=== PATIENT | male | born 1955 | race Caucasian/White ===

== ENCOUNTER 2023-02-06 11:56 | Outpatient (OUT) | payer OTHER, SELFPAY ==
[2023-02-07 04:07] LABS: PSA, Free 0.37 ng/mL
== END 2023-02-06 11:57 | disposition home or self-care (01) ==
PROVIDERS: PCP Family Medicine; Visit Provider Urology
DX: R97.20 Elevated prostate specific antigen [PSA] (principal)
CPT/HCPCS: 36415; 84153; 84154

== ENCOUNTER 2024-03-07 10:44 | Outpatient (OUT) | payer OTHER, SELFPAY ==
--- NOTE | 2024-03-07 | XR_ITS ---
The [address] [address] Patient Name: KIMBERLYN WYNN MRN: [id number] date: 1955 Sex: M Assigned Patient Location: [facility] Current Patient Location: Accession/Order Number: [id number] Exam Date: 03/07/2024 11:08 Report Date: 03/08/2024 06:42 At the request of: JOAQUÍN REILLY Procedure: XR knee RT 2V PROCEDURE: XR knee RT 2V HISTORY: CHRONIC PAIN OF RIGHT KNEE COMPARISON: None. FINDINGS: BONES:Tiny degenerative ossified along the articular margins of the patella. No fracture, dislocation, articular surface irregularity. No significant joint space narrowing. SOFT TISSUES:No visible soft tissue swelling. EFFUSION:Suspect small joint effusion. OTHER: Negative. XR/XR knee RT 2V IMPRESSION: 1. Small joint effusion is suspected. 2. Minimal degenerative changes. Electronically authenticated by: RYAN PETERSEN Date: 03/08/2024 06:42
--- OUTSIDE RECORDS SUMMARY | 2024-03-07 11:09 | XMS_ITS | CCD ---
Author Organization [facility] Care Team Providers Care Onion Topper Name Role Phone ASIM REILLY Primary Care Physician REQUEST, DR OTTO LISTED Admitting Unavaila ble REQUEST, DR OTTO LISTED Attending Unavaila ble NADERER, DR ASIM Chapman Primary Care Unavailable REQUEST, DR OTTO LISTED Consulting Unavaila ble REQUEST, DR OTTO LISTED Admitting Unavaila ble REQUEST, DR OTTO LISTED Attending Unavaila ble NADERER, DR ASIM Chapman Primary Care Unavailable REQUEST, DR OTTO LISTED Consulting Unavaila ble NADERER, DR ASIM Chapman Admitting Unavailable NADERER, DR ASIM Chapman Attending Unavailable NADERER, DR ASIM Chapman Primary Care Unavailable NADERER, DR ASIM Chapman Consulting Unavailable NADERER, DR ASIM Chapman Admitting Unavailable NADERER, DR AISM Chapman Attending Unavailable NADERER, DR ASIM Chapman Primary Care Unavailable NADERER, DR ASIM Champan Consulting Unavailable NADERER, DR ASIM Chapman Admitting Unavailable NADERER, DR ASIM Chapman Attending Unavailable NADERER, DR ASIM Chapman Primary Care Unavailable ZIEBER, DR RYAN Rodriguez Consulting Unavailable NADERER, DR ASIM Chapman Consulting Unavailable BOOKER ., DR FLORES Admitting Unavailable BOOKER ., DR FLORES Attending Unavailable NADERER, DR ASIM Chapman Primary Care Unavailable BOOKER ., DR FLORES Consulting Unavailable NADERER, DR ASIM Chapman Admitting Unavailable NADERER, DR ASIM Chapman Attending Unavailable NADERER, DR ASIM Chapman Primary Care Unavailable NADERER, DR ASIM Chapman Consulting Unavailable LEO James Primary Care Provider [phone] DO Teo Francis Attending Provider ASIM REILLY Attending Unavailable TOE FRANCIS Attending Unavailable TOMMIE, ASIM Referring Unavailable TEO FRANCIS Attending Unavailable Teo Francis Attending Unavailable Teo Francis Admitting Unavailable Alexander James Primary Care Unavailable LEO James Primary Care Provider DO Teo Francis Attending Provider Silviano BOOKER Attending Unavailable Silviano BOOKER Attending Unavailable Asim Reilly MD Primary Care Provider Asim Reilly MD Unavailable Medications Current Medications Medication Drug Class(es) Dates Sig (Normalized) Sig (Original) 24 hr alfuzosin hydrochloride 10 mg extended release oral tablet (8 sources) alpha-Adrenergic Isadora Start: 07-14-2023 Alfuzosin Active MG PO July 14, 2023 12:00am Start: 11-18-2022 take 1 tablet by devora th once daily alfuzosin ER (Uroxatral) 10 MG 24 hr tablet Indications: BPH without obstruction/lower urinary tract symptoms TAKE 1 TABLET BY MOUTH EVERY DAY 90 tablet 3 01/13/2024 Active Start: 09-25-2021 take 1 tablet by devora th once daily alfuzosin 10 mg ER Tab 10 mg = 1 tab(s), Oral, Daily, # 30 tab(s), Refills(s) 11, Pharmacy: [facility]/pharmacy #[id number], 178, cm, 09/25/21 11:42:00 EDT, Height/Length Dosing, 97.7, kg, 09/25/21 11:42:00 EDT, Weight Dosing Start Date: 09/25/21 Status: Ordered cetirizine hydrochloride 10 mg oral tablet (4 sources) Histamine-1 Receptor Antagonist Start: 03-12-2011 take 1 tablet by mouth once daily ZyrTEC 10 mg Tab 10 mg = 1 tab(s), Oral, Daily, tab(s), Refills(s) 0 Start Date: 03/12/11 Status: Ordered cholecalciferol 0.05 mg oral tablet (3 sources) Vitamin D take 1 tablet by mouth in the morning cholecalciferol (Vitamin D-3) 50 MCG (1999) tablet Take 1 tablet by mouth in the morning. Active loratadine 10 mg oral tablet (3 sources) take 1 tablet by mouth in the morning loratadine (Claritin) 10 MG tablet Take 1 tablet by mouth in the morning. Active nabumetone 500 mg oral tablet (2 sources) Nonsteroidal Anti-inflammatory Drug Start: 03-07-2024 take 1 tablet by mouth twice daily as needed for pain nabumetone (Relafen) 500 MG tablet Indications: Chronic pain of right knee Take 1 tablet (500 mg) by mouth 2 (two) times a day as needed for moderate pain or mild pain 60 tablet 3 03/07/2024 Active Start: 03-07-2024 take 1 tablet by devora th twice daily as needed for pain nabumetone (Relafen) 500 MG tablet Indications: Chronic pain of right knee Take 1 tablet (500 mg) by mouth 2 (two) times a day as needed for moderate pain or mild pain 60 tablet 3 03/07/2024 Active omeprazole 40 mg delayed release oral capsule (8 sources) Proton Pump Inhibitor Start: 09-25-2021 take 1 capsule by mouth once daily omeprazole (PriLOSEC) [address] capsule Indications: Gastroesophageal reflux disease without esophagitis TAKE 1 CAPSULE BY MOUTH EVERY DAY 90 capsule 3 04/23/2023 Active predniSONE 50 mg oral tablet (3 sources) Start: 03-07-2024 End: 03-13-2024 take 1 tablet by mouth once daily predniSONE (Deltasone) 50 MG tablet Indications: Chronic pain of right knee Take 1 tablet (50 mg) by mouth Daily for 6 days 6 tablet 03/07/2024 03/13/2024 Active Start: 07-14-2023 take 20 mg by mouth twice christophe y Prednisone Active 20 MG PO Twice daily 10 July 14, 2023 12:00am simvastatin 40 mg oral tablet (8 sources) HMG-CoA Reductase Inhibitor Start: 09-25-2021 End: 09-21-2024 take 1 tablet by mouth once daily simvastatin (Zocor) 40 MG tablet Indications: Dyslipidemia (CMS/HCC) Take 1 tablet (40 mg) by mouth 1 (one) time each day at the same time 100 tablet 3 09/22/2023 09/21/2024 Active Problems Active Problems Problem Classification Problem Date Documented Date Episodic/Chronic Disorders of lipid metabolism (11 sources) Dyslipidemia; Translations: [Hyperlipidemia] Onset: 04-14-2023 09-24-2021 Chronic Esophageal disorders (7 sources) Gastroesophageal reflux disease; Translations: [Gastroesophageal reflux disease without esophagitis] Onset: 04-14-2023 09-24-2021 Chronic Gout and other crystal arthropathies (3 sources) Gouty arthritis of multiple sites; Translations: [Idiopathic chronic gout, multiple sites, without tophus (tophi)] Onset: 04-14-2023 Resolved: 04-14-2023 04-14-2023 Chronic Hyperplasia of prostate (11 sources) Benign prostatic hypertrophy with outflow obstruction; Translations: [Benign prostatic hyperplasia with lower urinary tract symptoms] Onset: 11-06-2021 Chronic Inflammatory conditions of male genital organs (6 sources) Prostatitis; Translations: [Inflammatory disease of prostate, unspecified] Onset: 11-06-2021 Episodic Nutritional deficiencies (8 sources) Vitamin D deficiency; Translations: [Vitamin D deficiency, unspecified] Onset: 05-30-2022 09-24-2021 Chronic Osteoarthritis (4 sources) Arthritis 09-25-2021 Chronic Other non-traumatic joint disorders (4 sources) Pain in right knee; Translations: [Pain in joint, lower leg] Onset: 03-07-2024 03-07-2024 Episodic Other nutritional; endocrine; and metabolic disorders (4 sources) Body mass index 30+ - obesity 09-25-2021 Chronic Other skin disorders (1 source) Sebaceous cyst; Translations: [Sebaceous cyst] Onset: 05-21-2023 Episodic Other upper respiratory disease (3 sources) Allergic rhinitis; Translations: [Allergic rhinitis, unspecified] Onset: 04-14-2023 04-14-2023 Chronic Unclassified (3 sources) CONTACT W/AND (SUSP) EXPOS COVID-19; Translations: [CONTACT W/AND (SUSP) EXPOS COVID-19] Onset: 10-11-2021 Viral infection (4 sources) Herpes simplex 09-25-2021 Episodic Past or Other Problems Problem Classification Problem Date Documented Da te Episodic/Chronic Diabetes mellitus without complication (3 sources) Prediabetes; Translations: [Prediabetes] Onset: 04-14-2023 04-14-2023 Episodic Other bone disease and musculoskeletal deformities (4 sources) Other specified disorders of bone, shoulder; Translations: [OTHER SPEC DISORDERS BONE SHOULDER] Onset: 09-16-2021 Episodic Other bone disease and musculoskeletal deformities (3 sources) Clavicle pain; Translations: [Other specified disorders of bone, shoulder] Onset: 04-14-2023 Resolved: 04-14-2023 04-14-2023 Episodic Other screening for suspected conditions (not mental disorders or infectious disease) (13 sources) Raised prostate specific antigen; Translations: [Elevated prostate specific antigen [PSA]] Onset: 11-04-2021 Resolved: 04-14-2023 Episodic Other skin disorders (3 sources) Sebaceous cyst of skin; Translations: [Sebaceous cyst] Onset: 04-14-2023 04-14-2023 Episodic Unclassified (1 source) LEFT SHOULDER OSTEOARTHRITIS( Confirmed ) 03-12-2011 Unclassified (1 source) SASONAL ALLERGIES( Confirmed ) 03-12-2011 Unclassified (3 sources) LEFT SHOULDER OSTEOARTHRITIS 03-12-2011 Unclassified (3 sources) SASONAL ALLERGIES 03-12-2011 Unclassified (1 source) CONTACT W/AND (SUSP) EXPOS COVID-19; Translations: [CONTACT W/AND (SUSP) EXPOS COVID-19] Onset: 10-08-2021 Results Test Name Value Interpretation Reference Range Facility Ambulatory Visit Summaryon 1 04-18-2023 Ambulatory Visit Summary Ambulatory Visit Summary KIMBERLYN WYNN Mer :1955 Visit Date:02/17/2024 Ambulatory Visit Instructions Your Diagnosis BPH with urinary obstruction Your Care Team Attending Physician - Silviano BOOKER MD Primary Care Physician - ASIM REILLY MD This Is Your Medications List alfuzosin (alfuzosin 10 mg ER Tab) Contact prescribing physician if questions or concerns cetirizine (ZyrTEC 10 mg Tab) omeprazole (omeprazole 40 mg Cap-) simvastatin (simvastatin 40 mg Tab) Procedures Performed COLONOSCOPY. Discharge Vitals Temperature (Temporal Artery) 37.4 ???C Heart Rate (Peripheral) 74 Respiratory Rate 16 Blood Pressure 144/73 Height 178 cm Height 70 in Weight 99 kg Weight 218.257 lb BMI 31.25 What to do next Scheduled Follow-Up Appointments Thursday 9:15 AM EST With: Silviano BOOKER MD [facility] [place] [address]- You Need to Schedule the Following Appointments Follow Up with Silviano BOOKER MD, URL When: Where: [facility] [address], [place] [address]- Medications What How Much When Instructions Unchanged alfuzosin (alfuzosin 10 mg ER Tab) 1 Tablets By Mouth Every day Unchanged cetirizine (ZyrTEC 10 mg Tab) 1 Tablets By Mouth Every day Contact prescribing physician if questions or concerns Unchanged omeprazole (omeprazole 40 mg Cap-DR) By Mouth Every day Contact prescribing physician if questions or concerns Unchanged simvastatin (simvastatin 40 mg Tab) By Mouth Once a day (at bedtime) Contact prescribing physician if questions or concerns Allergies No Known Allergies Problems Ongoing - Any problem that you are currently receiving treatment for. Arthritis BMI 30.0-30.9,adult BPH with urinary obstruction Dyslipidemia Elevated PSA GERD (gastroesophageal reflux disease) Herpes Hyperlipidemia Prostatitis Vitamin D deficiency Historical - Any problem that you are no longer receiving treatment for. LEFT SHOULDER OSTEOARTHRITIS SASONAL ALLERGIES Patient Survey You may receive a survey via text or e-mail asking about your office visit. Please share your experience with us by completing your survey. We appreciate your feedback and thank you for choosing us for your care. Education Materials Benign Prostatic Hyperplasia Benign prostatic hyperplasia (BPH) is an enlarged prostate gland that is caused by the normal aging process. The prostate may get bigger as a man gets older. The condition is not caused by cancer. The prostate is a walnut-sized gland that is involved in the production of semen. It is located in front of the rectum and below the bladder. The bladder stores urine. The urethra carries stored urine out of the body. An enlarged prostate can press on the urethra. This can make it harder to pass urine. The buildup of urine in the bladder can cause infection. Back pressure and infection may progress to bladder damage and kidney (renal) failure. What are the causes? This condition is part of the normal aging process. However, not all men develop problems from this condition. If the prostate enlarges away from the urethra, urine flow will not be blocked. If it enlarges toward the urethra and compresses it, there will be problems passing urine. What increases the risk? This condition is more likely to develop in men older than 50 years. What are the signs or symptoms? Symptoms of this condition include: ??? Getting up often during the night to urinate. ??? Needing to urinate frequently during the day. ??? Difficulty starting urine flow. ??? Decrease in size and strength of your urine stream. ??? Leaking (dribbling) after urinating. ??? Inability to pass urine. This needs immediate treatment. ??? Inability to completely empty your bladder. ??? Pain when you pass urine. This is more common if there is also an infection. ??? Urinary tract infection (UTI). How is this diagnosed? This condition is diagnosed based on your medical history, a physical exam, and your symptoms. Tests will also be done, such as: ??? A post-void bladder scan. This measures any amount of urine that may remain in your bladder after you finish urinating. ??? A digital rectal exam. In a rectal exam, your health care provider checks your prostate by putting a lubricated, gloved finger into your rectum to feel the back of your prostate gland. This exam detects the size of your gland and any abnormal lumps or growths. ??? An exam of your urine (urinalysis). ??? A prostate specific antigen (PSA) screening. This is a blood test used to screen for prostate cancer. ??? An ultrasound. This test uses sound waves to electronically produce a picture of your prostate gland. Your health care provider may refer you to a specialist in kidney and prosta (more content not included)... Normal [facility] Office/Clinic Noteon 02-17-2024 Urology Office/Clinic Note Urology Office/Clinic Note Chief Complaint 1 year follow up with PSA HPI Staff 1 year follow up w/PSA previous DX: Elevated PSA, BPH w/ Urinary Obstruction, and Prostatitis. Previous PSA 2.0 & 18.5% 02/06/23, Current PSA 02/13/24 1.84 *Alfuzosin 10mg ER QD. Dysuria: denies Incomplete bladder emptying: denies Hematuria: denies Frequency: once every 3-4 hours, depends fluid intake Urgency: sometimes Nocturia: once a night Stream: denies hesitancy, has a steady stream, sometimes has stop and go Leaking: denies Post void dripping: denies Wearing pads/ Depends: denies Urge incontinence: denies Stress incontinence: denies Incontinence without Sensory Awareness: denies Abdominal pain: denies Flank pain: denies Sexual complaints: _ History of Present Illness Tests reviewed: UA, PSA I have reviewed the previous health record information and history for this patient from Dr. Booker. I have reviewed and verified the staff HPI to be accurate for this encounter. Review of Systems PHQ Score Initial Depression Screen Score: 0 SCORE ROS - Provider Constitutional: denies weight loss, denies hot flashes. Eyes: denies eye problems. Gastrointestinal: denies nausea, denies vomiting. Cardiovascular: denies chest pain or angina. Integumentary: no dryness Musculoskeletal: denies musculoskeletal symptoms. ENMT: denies otolaryngeal symptoms. Respiratory: no shortness of breath. Heme/Lymph: denies easy bleeding tendency, denies easy bruising tendency. Psychiatric: no confusion, no anxiety. Genitourinary: See HPI. Physical Exam Vitals & Measurements T: 37.4 ???C(Temporal Artery) HR: 74(Peripheral) RR: 16 BP: 144/73 HT: 70 in HT: 178 cm WT: 99 kg WT: 218.257 lb BMI: 31.25 General Appearance: alert, no distress, well nourished, well developed male. Assessment/Plan 1. BPH with urinary obstruction (N40.1: Benign prostatic hyperplasia with lower urinary tract symptoms) PSA: 09/16/21 - 16.22 09/19/21 - 11.6 & 14% Bactrim DS BID for 3 weeks 11/04/21 - 3.21 05/27/22 - 1.55 02/06/23 - 2.00 & 19% 02/13/24 - 1.84 UA neg. Taking Alfuzosin 10 mg ER QD. Cont wo dosage changes. Sent to [facility]. IPSS 11 (8). Urination stable. Steady stream. Feels he empties completely. Occasional urgency which he attributes to fluid intake, holding his bladder too long, or beer. PSA decreased from prior, favorable. Will cont to monitor. Likely has chronic low grade infection contributing to PSA elevation/fluctuatio n. Follow up 1 yr with PSA or sooner if needed. Pt understands and agrees with plan. Follow-up With When Contact Information RAYA DRAKE, Silviano Rodriguez, URL [facility] [address] [place] [address]- Additional Instructions: 1 yr with PSA Patient Education Benign Prostatic Hyperplasia INatividad, personally scribed for Dr. Booker on 02/17/2024 10:19:15. . Documentation recorded by the scribe, Natividad Friedman, accurately reflects the services(s) I performed and decisions made by me. Authenticated by Dr. Booker on 02/17/2024 10:22:08. Problem List/Past Medical History Ongoing Arthritis BMI 30.0-30.9,adult BPH with urinary obstruction Dyslipidemia Elevated PSA GERD (gastroesophageal reflux disease) Herpes Hyperlipidemia Prostatitis Vitamin D deficiency Historical LEFT SHOULDER OSTEOARTHRITIS SASONAL ALLERGIES Procedure/Surgical History COLONOSCOPY. Medications alfuzosin 10 mg ER Tab, 10 mg= 1 tab(s), Oral, Daily, 11 refills omeprazole 40 mg Cap-DR, Oral, Daily simvastatin 40 mg Tab, Oral, Once a day (at bedtime) ZyrTEC 10 mg Tab, 10 mg= 1 tab(s), Oral, Daily Allergies No Known Allergies Social History Alcohol Current. Beer. Daily., 02/16/2024 Substance Abuse - Denies Substance Abuse, 03/12/2011 Never., 02/16/2024 Tobacco - Denies Tobacco Use, 03/12/2011 Former smoker, quit more than 30 days ago Tobacco Use:. Never Smokeless Tobacco Use:. Cigarettes, 02/17/2024 Family History Heart disease: Father. Hyperlipidemia: Father. Immunizations Vaccine Date Status SARS-CoV-2 (COVID-19) mRNA-1273 vaccine 04/30/2021 Recorded SARS-CoV-2 (COVID-19) mRNA-1273 vaccine 09/2020 Recorded SARS-CoV-2 (COVID-19) mRNA-1273 vaccine 08/2020 Recorded SARS-CoV-2 (COVID-19) mRNA-1273 vaccine 06/19/2020 Recorded SARS-CoV-2 (COVID-19) mRNA-1273 vaccine 05/24/2020 Recorded zoster vaccine, inactivated 05/22/2019 Recorded zoster vaccine live 04/29/2016 Recorded Lab Results Ambulatory Point of Care Results Bilirubin Urine Dipstick: Negative (02/17/24 09:30:00) Blood Urine Dipstick: Negative (02/17/24 09:30:00) Glucose Urine Dipstick: Negative (02/17/24 09:30:00) Ketones Urine Dipstick: Negative (02/17/24 09:30:00) Leukocytes Urine Dipstick: Negative (02/17/24 09:30:00) Nitrite Urine Dipstick: Negative (02/17/24 09:30:00) Protein Urine Dipstick: Negative (02/17/24 09:30: (more content not included)... Normal [facility] Comment on above: Result Comment: Elec tronically Signed By: Silviano BOOKER MD\.br\Date and Time Signed: 02/17/24 10:22 EST\.br\Electronically Co-Signed By: Natividad Friedman\.br\Date and Time Co-Signed: 02/17/24 10:19 EST Jalil 05-21-2023 L Specimen: [id number] Received: 05/21/23 Status: TL Kelly Num: [id number] Spec Type: Surgical Subm Dr: Teo Francis DO Tissues: A Skin Cyst (VANCE CYST) Procedures: HE, Gross/Micro L3 Age/ Patient Sex Location Account Attending Physician Kimberlyn Wynn/M NA [id number] Teo Francis DO SPEC NUM: [id number] RECD: 05/21/23 STATUS: TL KELLY NUM: [id number] FAINA: 05/21/23- SUBM DR: Teo Francis DO ENTERED: 05/21/[address]: Nickolas Cabezas [facility] SPEC TYPE: Surgical DEPT: S ENTERED BY: [id number] RECV BY: [id number] ORDERED: HE, Gross/Micro L3 ORDERED: HE, Gross/Micro L3 Pathological Diagnosis Part a soft tissue, left axilla, excision: - Epidermal inclusion cyst Clinical Information Sebaceous cyst Gross Description Received in formalin labeled with the patient's name, date of and sebaceous cyst left axilla is a 3.0 x 1.5 x 1.5 cm white-alvarado cyst with an overlying 3.0 x 1.5 cm ellipse of pink-alvarado skin. There is a 0.2 x 0.2 cm defect on the skin surface. Soft white-shabazz waxy material exudes from the skin defect. Otherwise, the cyst appears to be intact. The margin is inked blue. Sectioning demonstrates a unilocular cystic cavity with no firm or suspicious areas of wall.. Flower Buncher Or Picker sections are submitted in 1 cassette as follows: A1 - Full-thickness cross-sections to include area of disruption on skin surface Microscopic Description The microscopic findings support the above rendered diagnosis. Specimen: [id number] Received: 05/21/23 Status: TL Kelly Num: [id number] Spec Type: Surgical Subm Dr: Teo Francis DO Tissues: A Skin Cyst (VANCE CYST) Procedures: KASSIE, Gross/Micro L3 Patient: Kimberlyn Wynn [id number] (Continued) Specimen: [id number] Received: 05/21/23 (Continued) Signed (signature on file) Sarah Hooker MD 05/22/23 1048 Specimen: [id number] Received: 05/21/23 Status: TL Kelly Num: [id number] Spec Type: Surgical Subm Dr: Teo Francis DO Tissues: A Skin Cyst (VANCE CYST) Procedures: KASSIE, Jorge/Micro L3 Patient: Kimberlyn Wynn [id number] (Continued) Specimen: [id number] Received: 05/21/23 (Continued) CPT Codes 19787 Specimen: [id number] Received: 05/21/23 Status: TL Kelly Num: [id number] Spec Type: Surgical Subm Dr: Teo Francis DO Tissues: A Skin Cyst (VANCE CYST) Procedures: KASSIE, Gross/Micro L3 Patient: Kimberlyn Wynn [id number] (Continued) Signed (signature on file) Sarah Hooker MD 05/22/23 1048 Normal [facility] CBC AUTO DIFFon 05-27-2022 BASO # 0.0 103/ul Normal 0.0-0.1 [facility] Comment on above: Performed By: #### D ATCBC #### [facility] [address] [place] [address] Dr. Pedro Hook Basophils/100 WBC (Bld) 0.9 % Normal 0.2-2.0 [facility] Comment on above: Performed By: #### D ATCBC #### [facility] [address] [address] [address] Pedro Hook EO # 0.1 103/ul Normal 0.0-0.7 [facility] Comment on above: Performed By: #### D ATCBC #### [facility] [address] [place] [address] Dr. Pedro Hook Eosinophils/100 WBC (Bld) 2.6 % Normal 0.9-7.0 [facility] Comment on above: Performed By: #### D ATCBC #### [facility] [address] [place] [address] Dr. Pedro Hook Erythrocyte distribution width (RBC) [Ratio] 12.6 % Normal 11.0-15.0 [facility] Comment on above: Performed By: #### D ATCBC #### [facility] [address] [place] [address] Dr. Pedro Hook Hematocrit (Bld) [Volume fraction] 42.3 % Normal 42.0-54.0 [facility] Comment on above: Performed By: #### D ATCBC #### [facility] [address] [place] [address] Dr. Pedro Hook Hemoglobin (Bld) [Mass/Vol] 15.1 g/dL Normal 14.0-18.0 [facility] Comment on above: Performed By: #### D ATCBC #### [facility] [address] [place] [address] Dr. Pedro Hook IG # 0.01 10e3/ul Normal 0.00-0.03 [facility] Comment on above: Performed By: #### D ATCBC #### [facility] [address] [place] [address] Dr. Pedro Hook IG % 0.2 % Normal 0.0-0.5 [facility] Comment on above: Performed By: #### D ATCBC #### [facility] [address] [place] [address] Dr. Pedro Hook LYMPH # 1.3 103/ul Normal 1.2-3.8 [facility] Comment on above: Performed By: #### D ATCBC #### [facility] [address] [place] [address] Dr. Pedro Hook Lymphocytes/100 WBC (Bld) 28.9 % Normal 20.5-60.0 [facility] Comment on above: Performed By: #### D ATCBC #### [facility] [address] [place] [address] Dr. Pedro Hook MCH (RBC) [Entitic mass] 31.3 pg Normal 25.9-34.0 [facility] Comment on above: Performed By: #### D ATCBC #### [facility] [address] [place] [address] Dr. Pedro Hook MCHC (RBC) [Mass/Vol] 35.7 g/dL Critically high 29.9-35.2 [facility] Comment on above: Performed By: #### D ATCBC #### [facility] [address] [place] [address] Dr. Pedro Hook MCV (RBC) [Entitic vol] 87.8 fL Normal 80.0-94.0 [facility] Comment on above: Performed By: #### D ATCBC #### [facility] [address] [place] [address] Dr. Pedro Hook MONO # 0.3 103/ul Normal 0.3-0.8 [facility] Comment on above: Performed By: #### D ATCBC #### [facility] [address] [place] [address] Dr. Pedro Hook Monocytes/100 WBC (Bld) 7.3 % Normal 1.7-12.0 [facility] Comment on above: Performed By: #### D ATCBC #### [facility] [address] [place] [address] Dr. Pedro Hook NEUT # 2.7 103/ul Normal 1.4-6.5 [facility] Comment on above: Performed By: #### D ATCBC #### [facility] [address] [place] [address] Dr. Pedro Hook Neutrophils/100 WBC (Bld) 60.1 % Normal 43.0-75.0 [facility] Comment on above: Performed By: #### D ATCBC #### [facility] [address] [place] [address] Dr. Pedro Hook Platelet mean volume (Bld) [Entitic vol] 9.2 fL Critically low 9.5-13.5 [facility] Comment on above: Performed By: #### D ATCBC #### [facility] [address] [place] [address] Dr. Pedro Hook PLT 143 103/ul Critically low 150-450 [facility] Comment on above: Performed By: #### D ATCBC #### [facility] [address] [address] [address] Pedro Hook RBC 4.82 106/ul Normal 4.70-6.10 [facility] Comment on above: Performed By: #### D ATCBC #### [facility] [address] [address] [address] Pedro Hook WBC 4.5 103/ul Normal 4.0-11.0 [facility] Comment on above: Performed By: #### D ATCBC #### [facility] [address] [place] [address] Dr. Pedro Hook HORACE - TSHon 05-27-2022 TSH 2.244 uIU/mL Normal 0.358-3.740 [facility] Comment on above: Performed By: #### D ATPSA, DATVITD, DATBMP, DATTSH ####[facility] [address] [address]DrGato Hook TSH RANGE SEE BELOW Normal [facility] Comment on above: Result Comment: <0.3 4 UIU/ml HYPERTHYROID 0.34-5.60 UIU/ml EUTHYROID >5.60 UIU/ml HYPOTHYROID Performed By: #### D ATPSA, DATVITD, DATBMP, DATTSH ####[facility] [address] [address]DrGato Hook HORACE - VITAMIN Don 05-27-2022 VIT D 25-OH 44.6 ng/mL Normal [facility] Comment on above: Performed By: #### D ATPSA, DATVITD, DATBMP, DATTSH ####[facility] [address] [address]DrGato Hook VIT D RANGES SEE BELOW Normal [facility] Comment on above: Result Comment: <20 ng/mL Vit D deficient 20 - <30 ng/mL Vit D insufficient 30 - 100 ng/mL Vit D sufficient >100 ng/mL Potential Toxicity Performed By: #### D ATPSA, DATVITD, DATBMP, DATTSH ####[facility] [address] [address]Dr. Pedro Hook HORACE- BMP WITH LIPIDon 2022 Anion gap [Moles/Vol] 11.2 mmol/L Normal [facility] Comment on above: Performed By: #### D ATPSA, DATVITD, DATBMP, DATTSH ####[facility] [address] [place], [place] [address]Dr. Pedro Hook Calcium [Mass/Vol] 9.2 mg/dL Normal 8.5-10.1 [facility] Comment on above: Performed By: #### D ATPSA, DATVITD, DATBMP, DATTSH ####[facility] [address] [place], [place] [address]Dr. Pedro Hook Chloride [Moles/Vol] 102 mmol/L Normal 98-107 [facility] Comment on above: Performed By: #### D ATPSA, DATVITD, DATBMP, DATTSH ####[facility] [address] [place], [place] [address]Dr. Pedro Hook Cholesterol [Mass/Vol] 169 mg/dL Normal <=200 [facility] Comment on above: Performed By: #### D ATPSA, DATVITD, DATBMP, DATTSH ####[facility] [address] [place], [place] [address]Dr. Pedro Hook Cholesterol in HDL [Mass/Vol] 34 mg/dL Critically low 40-60 [facility] Comment on above: Performed By: #### D ATPSA, DATVITD, DATBMP, DATTSH ####[facility] [address] [address]Dr. Pedro Hook Cholesterol in LDL [Mass/Vol] 107.0 mg/dL Normal [facility] Comment on above: Performed By: #### D ATPSA, DATVITD, DATBMP, DATTSH ####[facility] [address] [place], [place] [address]Dr. Pedro Hook CO2 [Moles/Vol] 30.1 mmol/L Normal 21.0-32.0 [facility] Comment on above: Performed By: #### D ATPSA, DATVITD, DATBMP, DATTSH ####[facility] [address] [address]Dr. Pedro Hook Creatinine [Mass/Vol] 0.98 mg/dL Normal 0.70-1.30 [facility] Comment on above: Performed By: #### D ATPSA, DATVITD, DATBMP, DATTSH ####[facility] [address] [address]Dr. Pedro Hook EGFR-AF TUNISIAN >60 Normal >=60 [facility] Comment on above: Performed By: #### D ATPSA, DATVITD, DATBMP, DATTSH ####[facility] [address] [address]Dr. Pedro Hook EGFR-NON AF TUNISIAN >60 Normal >=60 [facility] Comment on above: Performed By: #### D ATPSA, DATVITD, DATBMP, DATTSH ####[facility] [address] [address]Dr. Pedro Hook Glucose [Mass/Vol] 119 mg/dL Critically high 74-106 [facility] Comment on above: Performed By: #### D ATPSA, DATVITD, DATBMP, DATTSH ####[facility] [address] [address]Dr. Pedro Hook HDL NORMAL > or = 60 mg/dl - LOW CARDIOVASCULAR RISK <40 mg/dl - HIGH CARDIOVASCULAR RISK Normal [facility] Comment on above: Performed By: #### D ATPSA, DATVITD, DATBMP, DATTSH ####[facility] [address] [address]Dr. Pedro Hook LDL CALC NORMAL SEE BELOW Normal [facility] Comment on above: Result Comment: <100 mg/dl OPTIMAL 100 - 129 mg/dl NEAR OR ABOVE OPTIMAL 130 - 159 mg/dl BORDERLINE HIGH 160 - 189 mg/dl HIGH >190 mg/dl VERY HIGH Performed By: #### D ATPSA, DATVITD, DATBMP, DATTSH ####[facility] [address] [address]Dr. Pedro Hook Potassium [Moles/Vol] 4.3 mmol/L Normal 3.5-5.1 [facility] Comment on above: Performed By: #### D ATPSA, DATVITD, DATBMP, DATTSH ####[facility] [address] [address]Dr. Pedro Hook Sodium [Moles/Vol] 139 mmol/L Normal 136-145 [facility] Comment on above: Performed By: #### D ATPSA, DATVITD, DATBMP, DATTSH ####[facility] [address] [address]Dr. Pedro Hook Triglyceride [Mass/Vol] 140 mg/dL Normal <=150 [facility] Comment on above: Performed By: #### D ATPSA, DATVITD, DATBMP, DATTSH ####[facility] [address] [place], [place] [address]Dr. Pedro Hook Urea nitrogen [Mass/Vol] 15.0 mg/dL Normal 7.0-18.0 [facility] Comment on above: Performed By: #### D ATPSA, DATVITD, DATBMP, DATTSH ####[facility] [address] [address]Dr. Pedro Hook Urea nitrogen/Creatinine [Mass ratio] 15.3 mg/mg Normal [facility] Comment on above: Performed By: #### D ATPSA, DATVITD, DATBMP, DATTSH ####[facility] [address] [address]Dr. Pedro Hook VLDL CALC 28.0 mg/dL Normal [facility] Comment on above: Performed By: #### D ATPSA, DATVITD, DATBMP, DATTSH ####[facility] [address] [place], [place] [address]Dr. Pedro Hook GLYCOHEMOGLOBIN A1Con 2022 ADA RECOMMENDATION SEE BELOW Normal [facility] Comment on above: Result Comment: ADA RECOMMENDED LIMIT 4.0 - 6.0 ADA THERAPEUTIC TARGET < 7.0 ACTION SUGGESTED > 7.0 Performed By: #### D ATA1C #### [facility] [address] [address] [address] Pedro Hook Glucose [Mass/Vol] 105 mg/dL Normal [facility] Comment on above: Performed By: #### D ATA1C #### [facility] [address] [address] [address] Pedro Hook HbA1c (Bld) [Mass fraction] 5.3 % Normal 4.5-6.2 [facility] Comment on above: Performed By: #### D ATA1C #### [facility] [address] [place] [address] Dr. Pedro Hook LIVER PROFILEon 05-27-2022 Albumin [Mass/Vol] 4.2 g/dL Normal 3.4-5.0 [facility] Comment on above: Performed By: #### L IVER #### [facility] [address] [address] [address] Pedro Hook Albumin/Globulin [Mass ratio] 1.1 {ratio} Normal [facility] Comment on above: Performed By: #### L IVER #### [facility] [address] [place] [address] Dr. Pedro Hook ALP [Catalytic activity/Vol] 96 U/L Normal 46-116 [facility] Comment on above: Performed By: #### L IVER #### [facility] [address] [address] [address] Pedro Hook ALT [Catalytic activity/Vol] 64 U/L Critically high 16-63 [facility] Comment on above: Performed By: #### L IVER #### [facility] [address] [place] [address] Dr. Pedro Hook AST [Catalytic activity/Vol] 30 U/L Normal 15-37 [facility] Comment on above: Performed By: #### L IVER #### [facility] [address] [address] [address] Pedro Hook BILI, CONJUGATED 0.1 mg/dL Normal 0.0-0.2 [facility] Comment on above: Performed By: #### L IVER #### [facility] [address] [address] [address] Pedro Hook Bilirubin [Mass/Vol] 0.6 mg/dL Normal 0.2-1.0 [facility] Comment on above: Performed By: #### L IVER #### [facility] [address] [address] [address] Pedro Hook Globulin (S) [Mass/Vol] 3.8 g/dL Normal [facility] Comment on above: Performed By: #### L IVER #### [facility] [address] [address] [address] Pedro Hook Protein [Mass/Vol] 8.0 g/dL Normal 6.4-8.2 [facility] Comment on above: Performed By: #### L IVER #### [facility] [address] [address] [address] Pedro Hook [facility]on SARS-CoV-2 (COVID-19) RNA JACQUES+probe Ql (Unsp spec) Not detected Normal NOT DETECTED [facility] Comment on above: Result Comment: When diagnostic testing is negative, the possibility of a false negative should be considered in the context of a patient's recent exposures and the presence of clinical signs and symptoms consistent with SARS-CoV-2. This test is not yet approved or cleared by the [place] FDA. When there are no FDA-approved or cleared tests available, and other criteria are met, FDA can make tests available under an emergency access mechanism called an Emergency Use Authorization (EUA). The EUA for this test is supported by the [place] of Health and Human Service's declaration that circumstances exist to justify the emergency use of in vitro diagnostics for the detection and/or diagnosis of the virus that causes COVID-19. This EUA will remain in effect for the duration of the COVID-19 declaration justifying emergency of IVDs, unless it is terminated or revoked by the FDA (after which the test may no longer be used). Performed By: #### C VDTB #### [facility] [address] [place], [place] [address] Dr. Pedro Hook PSA, FREE AND TOTAL RATIOon 09-20-2021 % Free PSA 14.3 % Normal [facility] Comment on above: Result Comment: The table below lists the probability of prostate cancer for men with non-suspicious BRITTNY results and total PSA between 4 and 10 ng/mL, by patient age (Raul et al, JOSE 1998, 279:1542). % Free PSA 50-64 yr 65-75 yr 0.00-10.00% 56% 55% 10.01-15.00% 24% 35% 15.01-20.00% 17% 23% 20.01-25.00% 10% 20% >25.00% 5% 9% Please note: Raul et al did not make specific recommendations regarding the use of percent free PSA for any other population of men. Performed By: #### P SAFREE ####[facility] [address] [place], [place] [address]KlDr. Pedro Hook Prostate specific Ag [Mass/Vol] 11.6 ng/mL Critically high 0.0-4.0 [facility] Comment on above: Result Comment: Graeme phelps ECLIA methodology. . According to the [place] [employer], Serum PSA should decrease and remain at undetectable levels after radical prostatectomy. The AUA defines biochemical recurrence as an initial PSA value 0.2 ng/mL or greater followed by a subsequent confirmatory PSA value 0.2 ng/mL or greater. Values obtained with different assay methods or kits cannot be used interchangeably. Results cannot be interpreted as absolute evidence of the presence or absence of malignant disease. Performed By: #### P SAFREE ####[facility] [address] [place], [place] [address]ImDr. Pedro Hook PSA, Free 1.66 ng/mL Normal N/A [facility] Comment on above: Result Comment: Graeme phelps ECLIA methodology. Performed By: #### P SAFREE ####[facility] [address] [place], [place] [address]HoDr. Pedro Hook CBC AUTO DIFFon 09-16-2021 BASO # 0.1 103/ul Normal 0.0-0.1 [facility] Comment on above: Performed By: #### D ATCBC #### [facility] [address] [place] [address] Dr. Pedro Hook Basophils/100 WBC (Bld) 0.9 % Normal 0.2-2.0 [facility] Comment on above: Performed By: #### D ATCBC #### [facility] [address] [place] [address] Dr. Pedro Hook EO # 0.3 103/ul Normal 0.0-0.7 [facility] Comment on above: Performed By: #### D ATCBC #### [facility] [address] [place] [address] Dr. Pedro Hook Eosinophils/100 WBC (Bld) 4.0 % Normal 0.9-7.0 [facility] Comment on above: Performed By: #### D ATCBC #### [facility] [address] [place] [address] Dr. Pedro Hook Erythrocyte distribution width (RBC) [Ratio] 12.8 % Normal 11.0-15.0 [facility] Comment on above: Performed By: #### D ATCBC #### [facility] [address] [place] [address] Dr. Pedro Hook Hematocrit (Bld) [Volume fraction] 42.6 % Normal 42.0-54.0 [facility] Comment on above: Performed By: #### D ATCBC #### [facility] [address] [place] [address] Dr. Pedro Hook Hemoglobin (Bld) [Mass/Vol] 14.5 g/dL Normal 14.0-18.0 [facility] Comment on above: Performed By: #### D ATCBC #### [facility] [address] [place] [address] Dr. Pedro Hook IG # 0.01 10e3/ul Normal 0.00-0.03 [facility] Comment on above: Performed By: #### D ATCBC #### [facility] [address] [address] [address] Pedro Hook IG % 0.1 % Normal 0.0-0.5 [facility] Comment on above: Performed By: #### D ATCBC #### [facility] [address] [place] [address] Dr. Pedro Hook LYMPH # 1.5 103/ul Normal 1.2-3.8 [facility] Comment on above: Performed By: #### D ATCBC #### [facility] [address] [place] [address] Dr. Pedro Hook Lymphocytes/100 WBC (Bld) 21.8 % Normal 20.5-60.0 [facility] Comment on above: Performed By: #### D ATCBC #### [facility] [address] [place] [address] Dr. Pedro Hook MCH (RBC) [Entitic mass] 31.5 pg Normal 25.9-34.0 [facility] Comment on above: Performed By: #### D ATCBC #### [facility] [address] [place] [address] Dr. Pedro Hook MCHC (RBC) [Mass/Vol] 34.0 g/dL Normal 29.9-35.2 [facility] Comment on above: Performed By: #### D ATCBC #### [facility] [address] [place] [address] Dr. Pedro Hook MCV (RBC) [Entitic vol] 92.4 fL Normal 80.0-94.0 [facility] Comment on above: Performed By: #### D ATCBC #### [facility] [address] [place] [address] Dr. Pedro Hook MONO # 0.6 103/ul Normal 0.3-0.8 [facility] Comment on above: Performed By: #### D ATCBC #### [facility] [address] [place] [address] Dr. Pedro Hook Monocytes/100 WBC (Bld) 7.8 % Normal 1.7-12.0 [facility] Comment on above: Performed By: #### D ATCBC #### [facility] [address] [address] [address] Pedro Hook NEUT # 4.6 103/ul Normal 1.4-6.5 [facility] Comment on above: Performed By: #### D ATCBC #### [facility] [address] [address] [address] Pedro Hook Neutrophils/100 WBC (Bld) 65.4 % Normal 43.0-75.0 [facility] Comment on above: Performed By: #### D ATCBC #### [facility] [address] [place] [address] Dr. Pedro Hook Platelet mean volume (Bld) [Entitic vol] 9.3 fL Critically low 9.5-13.5 [facility] Comment on above: Performed By: #### D ATCBC #### [facility] [address] [place] [address] Dr. Pedro Hook PLT 214 103/ul Normal 150-450 [facility] Comment on above: Performed By: #### D ATCBC #### [facility] [address] [place] [address] Dr. Pedro Hook RBC 4.61 106/ul Critically low 4.70-6.10 [facility] Comment on above: Performed By: #### D ATCBC #### [facility] [address] [place] [address] Dr. Pedro Hook WBC 7.0 103/ul Normal 4.0-11.0 [facility] Comment on above: Performed By: #### D ATCBC #### [facility] [address] [place] [address] Dr. Pedro Hook HORACE - TSHon 09-16-2021 TSH 2.707 uIU/mL Normal 0.358-3.740 [facility] Comment on above: Performed By: #### D ATBMP, DATTSH, DATPSA #### [facility] [address] [place] [address] Dr. Pedro Hook TSH RANGE SEE BELOW Normal [facility] Comment on above: Result Comment: <0.3 4 UIU/ml HYPERTHYROID 0.34-5.60 UIU/ml EUTHYROID >5.60 UIU/ml HYPOTHYROID Performed By: #### D ATBMP, DATTSH, DATPSA #### [facility] [address] [place] [address] Dr. Pedro Hook HORACE- BMP WITH LIPIDon 2021 Anion gap [Moles/Vol] 10.4 mmol/L Normal [facility] Comment on above: Performed By: #### D ATBMP, DATTSH, DATPSA #### [facility] [address] [place] [address] Dr. Pedro Hook Calcium [Mass/Vol] 9.0 mg/dL Normal 8.5-10.1 [facility] Comment on above: Performed By: #### D ATBMP, DATTSH, DATPSA #### [facility] [address] [place] [address] Dr. Pedro Hook Chloride [Moles/Vol] 103 mmol/L Normal 98-107 [facility] Comment on above: Performed By: #### D ATBMP, DATTSH, DATPSA #### [facility] [address] [address] [address] Pedro Hook Cholesterol [Mass/Vol] 140 mg/dL Normal <=200 [facility] Comment on above: Performed By: #### D ATBMP, DATTSH, DATPSA #### [facility] [address] [place] [address] Dr. Pedro Hook Cholesterol in HDL [Mass/Vol] 33 mg/dL Critically low 40-60 [facility] Comment on above: Performed By: #### D ATBMP, DATTSH, DATPSA #### [facility] [address] [address] [address] Pedro Hook Cholesterol in LDL [Mass/Vol] 88.2 mg/dL Normal [facility] Comment on above: Performed By: #### D ATBMP, DATTSH, DATPSA #### [facility] [address] [address] [address] Pedro Hook CO2 [Moles/Vol] 29.8 mmol/L Normal 21.0-32.0 [facility] Comment on above: Performed By: #### D ATBMP, DATTSH, DATPSA #### [facility] [address] [place] [address] Dr. Pedro Hook Creatinine [Mass/Vol] 1.07 mg/dL Normal 0.70-1.30 [facility] Comment on above: Performed By: #### D ATBMP, DATTSH, DATPSA #### [facility] [address] [address] [address] Pedro Hook EGFR-AF TUNISIAN >60 Normal >=60 [facility] Comment on above: Performed By: #### D ATBMP, DATTSH, DATPSA #### [facility] [address] [place] [address] Dr. Pedro Hook EGFR-NON AF TUNISIAN >60 Normal >=60 [facility] Comment on above: Performed By: #### D ATBMP, DATTSH, DATPSA #### [facility] [address] [place] [address] Dr. Pedro Hook Glucose [Mass/Vol] 113 mg/dL Critically high 74-106 [facility] Comment on above: Performed By: #### D ATBMP, DATTSH, DATPSA #### [facility] [address] [place] [address] Dr. Pedro Hook HDL NORMAL > or = 60 mg/dl - LOW CARDIOVASCULAR RISK <40 mg/dl - HIGH CARDIOVASCULAR RISK Normal [facility] Comment on above: Performed By: #### D ATBMP, DATTSH, DATPSA #### [facility] [address] [place] [address] Dr. Pedro Hook LDL CALC NORMAL SEE BELOW Normal [facility] Comment on above: Result Comment: <100 mg/dl OPTIMAL 100 - 129 mg/dl NEAR OR ABOVE OPTIMAL 130 - 159 mg/dl BORDERLINE HIGH 160 - 189 mg/dl HIGH >190 mg/dl VERY HIGH Performed By: #### D ATBMP, DATTSH, DATPSA #### [facility] [address] [place] [address] Dr. Pedro Hook Potassium [Moles/Vol] 5.2 mmol/L Critically high 3.5-5.1 [facility] Comment on above: Performed By: #### D ATBMP, DATTSH, DATPSA #### [facility] [address] [address] [address] Pedro Hook Sodium [Moles/Vol] 138 mmol/L Normal 136-145 [facility] Comment on above: Performed By: #### D ATBMP, DATTSH, DATPSA #### [facility] [address] [address] [address] Pedro Hook Triglyceride [Mass/Vol] 94 mg/dL Normal <=150 [facility] Comment on above: Performed By: #### D ATBMP, DATTSH, DATPSA #### [facility] [address] [place] [address] Dr. Pedro Hook Urea nitrogen [Mass/Vol] 14.0 mg/dL Normal 7.0-18.0 [facility] Comment on above: Performed By: #### D ATBMP, DATTSH, DATPSA #### [facility] [address] [address] [address] Pedro Hook Urea nitrogen/Creatinine [Mass ratio] 13.1 mg/mg Normal [facility] Comment on above: Performed By: #### D ATBMP, DATTSH, DATPSA #### [facility] [address] [address] [address] Pedro Hook VLDL CALC 18.8 mg/dL Normal [facility] Comment on above: Performed By: #### D ATBMP, DATTSH, DATPSA #### [facility] [address] [address] [address] Pedro Hook GLYCOHEMOGLOBIN A1Con 2021 ADA RECOMMENDATION SEE BELOW Normal [facility] Comment on above: Result Comment: ADA RECOMMENDED LIMIT 4.0 - 6.0 ADA THERAPEUTIC TARGET < 7.0 ACTION SUGGESTED > 7.0 Performed By: #### D ATA1C #### [facility] [address] [address] [address] Pedro Hook Glucose [Mass/Vol] 120 mg/dL Normal [facility] Comment on above: Performed By: #### D ATA1C #### [facility] [address] [id number] Pedro Hook HbA1c (Bld) [Mass fraction] 5.8 % Normal 4.5-6.2 [facility] Comment on above: Performed By: #### D ATA1C #### [facility] [address] [id number] Pedro Hook Vital Signs Date Time Vital Sign Value Performing Clinician Facility 03-07-2024 09:54-0500 Body height 177.8 cm Asim Reilly MD Work Phone: [facility] 03-07-2024 09:54-0500 Body mass index (BMI) [Ratio] 31.28 kg/m2 Asim Reilly MD Work Phone: [facility] 03-07-2024 09:54-0500 Body temperature 97.11 [degF] Asim Reilly MD Work Phone: [facility] 03-07-2024 09:54-0500 Body weight 98.88 kg Asim Reilly MD Work Phone: [facility] 03-07-2024 09:54-0500 Diastolic blood pressure 58 mm[Hg] Asim Reilly MD Work Phone: [facility] 03-07-2024 09:54-0500 Heart rate 78 /min Asim Reilly MD Work Phone: [facility] 03-07-2024 09:54-0500 Respiratory rate 20 /min Asim Reilly MD Work Phone: [facility] 03-07-2024 09:54-0500 SaO2% (BldA) [Mass fraction] 96 % Asim Reilly MD Work Phone: [facility] 03-07-2024 09:54-0500 Systolic blood pressure 126 mm[Hg] Asim Reilly MD Work Phone: [facility] 02-17-2024 09:34-0500 Body temperature 99.32 [degF] Silviano [facility] 02-17-2024 09:34-0500 Diastolic blood pressure 73 mm[Hg] Silviano BOOKER [facility] 02-17-2024 09:34-0500 Heart rate 74 /min Silvianodianelys BOOKER [facility] 02-17-2024 09:34-0500 Respiratory rate 16 /min Silvaino BOOKER [facility] 02-17-2024 09:34-0500 Systolic blood pressure 144 mm[Hg] Silviano BOOKER [facility] 07-14-2023 09:48-0400 Body height 177.8 cm II Alexander James Work Phone: [facility] 07-14-2023 09:48-0400 Body mass index (BMI) [Ratio] 31 kg/m2 II Alexander James Work Phone: [facility] 07-14-2023 09:48-0400 Body temperature 98.3 [degF] II Alexander James Work Phone: [facility] 07-14-2023 09:48-0400 Body weight 98.08 kg II Alexander James Work Phone: [facility] 07-14-2023 09:48-0400 Heart rate 66 /min II Alexander James Work Phone: [facility] 07-14-2023 09:48-0400 Respiratory rate 18 /min II Alexander James Work Phone: [facility] 07-14-2023 09:48-0400 SaO2% (BldA) [Mass fraction] 96 % II Alexander James Work Phone: [facility] 02-11-2023 09:35-0500 Diastolic blood pressure 74 mm[Hg] Silviano BOOKER [facility] 02-11-2023 09:35-0500 Heart rate 67 /min Silviano BOOKER [facility] 02-11-2023 09:35-0500 Systolic blood pressure 134 mm[Hg] Silviano BOOKER [facility] 05-14-2022 09:23-0500 Blood Pressure Location Silviano BOOKER [facility] 05-14-2022 09:23-0500 Diastolic blood pressure 65 mm[Hg] Silviano BOOKER [facility] 05-14-2022 09:23-0500 Heart rate 62 /min Silviano BOOKER [facility] 05-14-2022 09:23-0500 Systolic blood pressure 157 mm[Hg] Silviano BOOKER [facility] 11-06-2021 09:34-0400 Blood Pressure Location Silviano BOOKER [facility] 11-06-2021 09:34-0400 Diastolic blood pressure 76 mm[Hg] Silviano BOOKER [facility] 11-06-2021 09:34-0400 Heart rate 70 /min Silviano BOOKER [facility] 11-06-2021 09:34-0400 Respiratory rate 16 /min Silviano BOOKER [facility] 11-06-2021 09:34-0400 Systolic blood pressure 138 mm[Hg] Silviano BOOKER [facility] Encounters Encounter Date Encounter Type Care Provider Facility Start: 02-22-2025 ambulatory Silviano R BOOKER Facili ty: [place] Start: 03-07-2024 End: 03-07-2024 Bamboo flowsheet Asim Reilly MD Work Phone: [facility] Start: 03-07-2024 End: 03-07-2024 Bamboo flowsheet Asim Reilly MD Work Phone: [facility] Start: 03-07-2024 End: 03-07-2024 Office outpatient visit 15 minutes Asim Reilly MD Work Phone: [facility] Comment on above: Chronic pain of righ t knee (Primary Dx) Start: 02-17-2024 End: 02-17-2024 ambulatory Silvianodianelys BOOKER Facility: [facility] Start: 02-17-2024 End: 02-17-2024 Patient encounter procedure Silviano BOOKER [facility] Start: 07-14-2023 End: 07-14-2023 ambulatory II Alexander Jacob Work Phone: [facility] Work Phone: Start: 07-14-2023 End: 07-14-2023 Patient encounter procedure II Alexander James Work Phone: [facility] [place] Work Phone: Start: 05-28-2023 End: 05-28-2023 ambulatory TEO FRANCIS Not Available Start: 05-21-2023 End: 05-21-2023 ambulatory Teo Francis Facility:[facility] Start: 05-21-2023 End: 05-21-2023 ambulatory II Alexander James Work Phone: [facility] Work Phone: Start: 05-21-2023 End: 05-21-2023 Departed Referred II Alexander James Work Phone: [facility] [place] Work Phone: Start: 05-05-2023 End: 05-05-2023 ambulatory TEO Marina FRANCIS Not Available Start: 04-14-2023 Patient encounter procedure Asim Reilly MD Work Phone: [facility] Start: 04-14-2023 End: 04-14-2023 ambulatory ASIM REILLY Not Available Start: 02-11-2023 End: 02-11-2023 Patient encounter procedure Silviano BOOKER [facility] Start: 05-30-2022 Encounter for genera l adult medical examination without abnormal findings DR ASIM REILLY [facility] Start: 05-27-2022 End: 05-28-[address] ASIM REILLY Facility:[facility] Start: 05-27-2022 End: 05-28-2022 Encounter for general adult medical examination without abnormal findings DR ASIM REILLY Facility:[facility] Start: 05-14-2022 End: 05-14-2022 Patient encounter procedure Silviano BOOKER [facility] Start: 11-06-2021 End: 11-06-2021 Patient encounter procedure Silviano BOOKER [facility] Start: 11-04-2021 End: 11-05-[address] SILVIANO BOOKER . Facility:[facility] Start: 10-08-2021 End: 10-08-[address] ASIM REILLY Facility:[facility] Start: 09-19-2021 End: 09-20-[address] ASIM REILLY Facility:[facility] Start: 09-16-2021 End: 09-17-[address] ASIM REILLY Facility:[facility] Procedures Date Procedure Procedure Detail Performing Clinician Start: 05-27-[address] FAM Brand ISTED REQUEST Comment on above: Performed By: #### D ATPSA, DATVITD, DATBMP, DATTSH ####[facility] [id number] [place], [place] [address]Vn. Pedro Hook Start: 11-04-[address] FAM Brand ISTED REQUEST Comment on above: Performed By: #### P SAD ####[facility] [id number] [place], [place] [address]Jd. Pedor Hook Start: 09-16-[address] FAM Brand ISTED REQUEST Comment on above: Performed By: #### D ATBMP, DATTSH, DATPSA #### [facility] [address] [place], [place] [address] Dr. Pedro Hook Start: 05-26-2016 Colonoscopy Asim anglin MD Work Phone: Colonoscopy Silviano BOOKER Plan of Treatment Date Care Activity Detail Author Start: 05-26-2026 Screening for malign ant neoplasm of colon [facility] Start: 05-09-2024 End: 05-09-2024 Patient encounter procedure 05/09/2024 10:15 AM EST Office Visit [facility] [address] [place] [phone] Asim Reilly MD [address] [place] [phone] [facility] Start: 04-14-2024 Medicare Annual Wellness (AWV) Medicare Annual Wellness (AWV) [facility] Start: 03-07-2024 End: 03-07-2025 XR Knee - right 1 or 2 Views XR knee 1 or 2 views right Imaging Routine Chronic pain of right knee Expected: 03/07/2024, Expires: 03/07/2025 [facility] Work Phone: Comment on above: Expected: 03/07/2024 , Expires: 03/07/2025 Start: 03-07-2024 End: 03-07-2024 Patient encounter procedure 03/07/2024 9:45 AM EST Office Visit [facility] [address] [place] [address] Asim Reilly MD [address] [place] [phone] Arrived [facility] Comment on above: Arrived Start: 12-06-2023 Influenza vaccination Influenza Vacc ine (#1) [facility] Start: 2019 Pneumococcal Vaccine : 65+ Years (1 of 1 - PCV) Pneumococcal Vaccine: 65+ Years (1 of 1 - PCV) [facility] Start: 1955 Screening for malign ant neoplasm of colon [facility] Immunizations Immunization Date Immunization Notes Care Provider Fa cili 04-30-2021 SARS-CoV-2 (COVID-19 ) mRNA-1273 vaccine Silviano BOOKER [facility] 09-04-2020 SARS-CoV-2 (COVID-19 ) mRNA-1273 vaccine Silviano BOOKER [facility] 08-04-2020 SARS-CoV-2 (COVID-19 ) mRNA-1273 vaccine Silviano BOOKER [facility] 06-19-2020 SARS-CoV-2 (COVID-19 ) mRNA-1273 vaccine Silviano BOOKER [facility] 05-24-2020 SARS-CoV-2 (COVID-19 ) mRNA-1273 vaccine Silviano BOOKER [facility] 05-22-2019 zoster vaccine recombinant Silviano BOOKER [facility] 04-29-2016 zoster vaccine, live Silviano BOOKER [facility] Payers Date Payer Category Payer Medicare (Managed Care) COUNTS INCLUDE [address] BEDS AT [facility] [place] [id number] 1959 Self-pay 1959 Unknown [id number] 1959 Unknown [id number] 1954 Unknown [id number] [id number]. 593 1954 Unknown [id number] [id number]. 593 1954 Unknown [id number] [id number]. 593 1954 Unknown [id number] [id number]. 593 1954 Unknown [id number] [id number]. 593 1954 Unknown [id number] 2.16.840.1.162405.3.579.2. 1259 1954 Unknown [id number] 2.16.840.1.799215.3.579.2. 1259 1954 Unknown [id number] 2.16.840.1.230421.3.579.2. 1259 1954 Unknown [id number] [id number]. 727 1954 Unknown [id number] [id number]. 727 Medicare [id number] Private Health Insurance [employer] [id number] Unknown [id number] [id number]. 593 Unknown [id number] [id number]. 593 Unknown [id number]. 531 Social History Date Type Detail Facility Start: 09-25-2021 End: 05-05-2023 Tobacco smoking status Ex-smoker (finding) [facility] Tobacco smoking status Never [facility] Start: 04-13-2023 End: 04-14-2023 Sex Assigned At Male [facility] Start: 1955 Sex Assigned At Male [facility] Start: 04-06-1974 End: 04-06-2010 History of tobacco use Current smoker [facility] Start: 04-06-1974 End: 04-06-2010 History of tobacco use Cigarette Smoker [facility] Start: 04-13-2023 End: 05-05-2023 Cigarettes smoked current (pack per day) - Reported 1 [facility] Start: 05-05-2023 Tobacco use and exposure Smoke less tobacco non-user [facility] Start: 05-05-2023 End: 12-02-2024 Alcoholic beverage intake Ex-drinker (finding) [facility] Within the last year , have you been afraid of your partner or ex-partner? No [facility] Do you belong to any clubs or organizations such as sikh groups, unions, fraternal or athletic groups, or school groups? Yes [facility] Are you now , , , , never or living with a partner? [facility] How often to you hav e a drink containing alcohol? 4 or more times a week [facility] How many standard dr inks containing alcohol do you have on a typical day? 1 or 2 [facility] How often do you hav e 6 or more drinks on 1 occasion? Never [facility] Do you feel stress - tense, restless, nervous, or anxious, or unable to sleep at night because your mind is troubled all the time - these days [OSQ] Not at all [facility] (I/We) worried wheth er (my/our) food would run out before (I/we) got money to buy more. Never true [facility] Start: 05-04-2023 Alcohol Comment caffeine: coffee [facility] Start: 1955 Sex assigned at Not on file [facility] Functional Status Date Assessment Result Facility 02-17-2024 Functional Status N/A [facility] 02-11-2023 Functional Status N/A [facility] 05-14-2022 Functional Status N/A [facility] 11-06-2021 Functional Status N/A [facility] Clinical Notes 09-16-2021 to 03-07-2024 Asim Reilly MD - 03/07/2024 10:18 AM García Reilly MD - 03/07/2024 9:45 AM EST Note Date & Type Note Facility 03-07-2024 History of Present illness Narrative Associated Problem(s): Chronic pain of right knee Increased pain and likely OA. Check x-ray. Treat with prednisone. Use relafen for pain and ice PRN. If no improvement can refer to ortho. Images from the original note were not included. Subjective Patient ID: Kimberlyn Wynn is a 68 y.o. male who presents for Knee Pain (Right knee pain). C/o right knee pain for several months. No specific fall, injury, or trauma. In early January kneeling in stones working on tractor and developed pain in outer knee. Few weeks later when walking in field felt stabbing pain in outer knee. Pain in outside knee and now getting dull ache on inside of knee. Pain behind knee. Frequent swelling compared to left. Frequent popping, clicking, and grinding. Not unsteady or giving out. No problems on left. Difficulty climbing stairs and hard time sitting prolonged then standing. Pain to sit with knee bent and has to straighten. Not tried ice. Tylenol provides mild relief. Review of Systems Constitutional: Negative for fatigue. Respiratory: Negative for cough, shortness of breath and wheezing. Cardiovascular: Negative for chest pain and palpitations. Gastrointestinal: Negative for abdominal pain, diarrhea, nausea and vomiting. Genitourinary: Negative for dysuria. Objective Physical Exam Constitutional: General: He is not in acute distress. Appearance: Normal appearance. HENT: Head: Normocephalic. Right Ear: Tympanic membrane and ear canal normal. Left Ear: Tympanic membrane and ear canal normal. Eyes: Extraocular Movements: Extraocular movements intact. Pupils: Pupils are equal, round, and reactive to light. Cardiovascular: Rate and Rhythm: Normal rate and regular rhythm. Heart sounds: No murmur heard. No friction rub. No gallop. Pulmonary: Breath sounds: Normal breath sounds. No wheezing, rhonchi or rales. Abdominal: General: Bowel sounds are normal. There is no distension. Palpations: Abdomen is soft. Tenderness: There is no abdominal tenderness. There is no guarding or rebound. Musculoskeletal: Left lower leg: No edema. Comments: Right knee: Mild swelling. TTP over lateral joint line. Ligaments intact. Ara's with good endpoint. Lea's negative. Neurological: Mental Status: He is alert. Assessment/Plan Problem List Items Addressed This Visit Chronic pain of right knee - Primary Increased pain and likely OA. Check x-ray. Treat with prednisone. Use relafen for pain and ice PRN. If no improvement can refer to ortho. Relevant Medications predniSONE (Deltasone) 50 MG tablet nabumetone (Relafen) 500 MG tablet Other Relevant Orders XR knee 1 or 2 views right documented in this encounter [facility] 02-17-2024 Hospital Discharge instructions Patient Education 02/17/2024 10:11:56 Benign Prostatic Hyperplasia Benign Prostatic Hyperplasia Benign prostatic hyperplasia (BPH) is an enlarged prostate gland that is caused by the normal aging process. The prostate may get bigger as a man gets older. The condition is not caused by cancer. The prostate is a walnut-sized gland that is involved in the production of semen. It is located in front of the rectum and below the bladder. The bladder stores urine. The urethra carries stored urine out of the body. An enlarged prostate can press on the urethra. This can make it harder to pass urine. The buildup of urine in the bladder can cause infection. Back pressure and infection may progress to bladder damage and kidney (renal) failure. What are the causes? This condition is part of the normal aging process. However, not all men develop problems from this condition. If the prostate enlarges away from the urethra, urine flow will not be blocked. If it enlarges toward the urethra and compresses it, there will be problems passing urine. What increases the risk? This condition is more likely to develop in men older than 50 years. What are the signs or symptoms? Symptoms of this condition include: Getting up often during the night to urinate. Needing to urinate frequently during the day. Difficulty starting urine flow. Decrease in size and strength of your urine stream. Leaking (dribbling) after urinating. Inability to pass urine. This needs immediate treatment. Inability to completely empty your bladder. Pain when you pass urine. This is more common if there is also an infection. Urinary tract infection (UTI). How is this diagnosed? This condition is diagnosed based on your medical history, a physical exam, and your symptoms. Tests will also be done, such as: A post-void bladder scan. This measures any amount of urine that may remain in your bladder after you finish urinating. A digital rectal exam. In a rectal exam, your health care provider checks your prostate by putting a lubricated, gloved finger into your rectum to feel the back of your prostate gland. This exam detects the size of your gland and any abnormal lumps or growths. An exam of your urine (urinalysis). A prostate specific antigen (PSA) screening. This is a blood test used to screen for prostate cancer. An ultrasound. This test uses sound waves to electronically produce a picture of your prostate gland. Your health care provider may refer you to a specialist in kidney and prostate diseases (urologist). How is this treated? Once symptoms begin, your health care provider will monitor your condition (active surveillance or watchful waiting). Treatment for this condition will depend on the severity of your condition. Treatment may include: Observation and yearly exams. This may be the only treatment needed if your condition and symptoms are mild. Medicines to relieve your symptoms, including: ?Medicines to shrink the prostate. ?Medicines to relax the muscle of the prostate. Surgery in severe cases. Surgery may include: ?Prostatectomy. In this procedure, the prostate tissue is removed completely through an open incision or with a laparoscope or robotics. ?Transurethral resection of the prostate (TURP). In this procedure, a tool is inserted through the opening at the tip of the penis (urethra). It is used to cut away tissue of the inner core of the prostate. The pieces are removed through the same opening of the penis. This removes the blockage. ?Transurethral incision (TUIP). In this procedure, small cuts are made in the prostate. This lessens the prostate's pressure on the urethra. ?Transurethral microwave thermotherapy (TUMT). This procedure uses microwaves to create heat. The heat destroys and removes a small amount of prostate tissue. ?Transurethral needle ablation (TUNA). This procedure uses radio frequencies to destroy and remove a small amount of prostate tissue. ?Interstitial laser coagulation (ILC). This procedure uses a laser to destroy and remove a small amount of prostate tissue. ?Transurethral electrovaporization (TUVP). This procedure uses electrodes to destroy and remove a small amount of prostate tissue. ?Prostatic urethral lift. This procedure inserts an implant to push the lobes of the prostate away from the urethra. Follow these instructions at home: Take eovv-ikv-ddlnstb and prescription medicines only as told by your health care provider. Monitor your symptoms for any changes. Contact your health care provider with any changes. Avoid drinking large amounts of liquid before going to bed or out in public. Avoid or reduce how much caffeine or alcohol you drink. Give yourself time when you urinate. Keep all follow-up visits. This is important. Contact a health care provider if: You have unexplained back pain. Your symptoms do not get better with treatment. You develop side effects from the medicine you are taking. Your urine becomes very dark or has a bad smell. Your lower abdomen becomes distended and you have trouble passing urine. Get help right away if: You have a fever or chills. You suddenly cannot urinate. You feel light-headed or very dizzy, or you faint. There are large amounts of blood or clots in your urine. Your urinary problems become hard to manage. You develop moderate to severe low back or flank pain. The flank is the side of your body between the ribs and the hip. These symptoms may be an emergency. Get help right away. Call 911. Do not wait to see if the symptoms will go away. Do not drive yourself to the hospital. Summary Benign prostatic hyperplasia (BPH) is an enlarged prostate that is caused by the normal aging process. It is not caused by cancer. An enlarged prostate can press on the urethra. This can make it hard to pass urine. This condition is more likely to develop in men older than 50 years. Get help right away if you suddenly cannot urinate. This information is not intended to replace advice given to you by your health care provider. Make sure you discuss any questions you have with your health care provider. Document Revised: 10/09/2021 Document Reviewed: 10/09/2021 [employer] Patient Education 2023 [employer]. Follow Up Care 02/11/2023 10:20:11 With:RAYA DRAKE, Silviano Rodriguez, URL Address: [facility] [address] , [place] [address]- When: Unknown [facility] 02-17-2024 Note Patient Education Urology Benign Prostatic Hyperplasia Benign prostatic hyperplasia (BPH) is an enlarged prostate gland that is caused by the normal aging process. The prostate may get bigger as a man gets older. The condition is not caused by cancer. The prostate is a walnut-sized gland that is involved in the production of semen. It is located in front of the rectum and below the bladder. The bladder stores urine. The urethra carries stored urine out of the body. An enlarged prostate can press on the urethra. This can make it harder to pass urine. The buildup of urine in the bladder can cause infection. Back pressure and infection may progress to bladder damage and kidney (renal) failure. What are the causes? This condition is part of the normal aging process. However, not all men develop problems from this condition. If the prostate enlarges away from the urethra, urine flow will not be blocked. If it enlarges toward the urethra and compresses it, there will be problems passing urine. What increases the risk? This condition is more likely to develop in men older than 50 years. What are the signs or symptoms? Symptoms of this condition include: ??? Getting up often during the night to urinate. ??? Needing to urinate frequently during the day. ??? Difficulty starting urine flow. ??? Decrease in size and strength of your urine stream. ??? Leaking (dribbling) after urinating. ??? Inability to pass urine. This needs immediate treatment. ??? Inability to completely empty your bladder. ??? Pain when you pass urine. This is more common if there is also an infection. ??? Urinary tract infection (UTI). How is this diagnosed? This condition is diagnosed based on your medical history, a physical exam, and your symptoms. Tests will also be done, such as: ??? A post-void bladder scan. This measures any amount of urine that may remain in your bladder after you finish urinating. ??? A digital rectal exam. In a rectal exam, your health care provider checks your prostate by putting a lubricated, gloved finger into your rectum to feel the back of your prostate gland. This exam detects the size of your gland and any abnormal lumps or growths. ??? An exam of your urine (urinalysis). ??? A prostate specific antigen (PSA) screening. This is a blood test used to screen for prostate cancer. ??? An ultrasound. This test uses sound waves to electronically produce a picture of your prostate gland. Your health care provider may refer you to a specialist in kidney and prostate diseases (urologist). How is this treated? Once symptoms begin, your health care provider will monitor your condition (active surveillance or watchful waiting). Treatment for this condition will depend on the severity of your condition. Treatment may include: ??? Observation and yearly exams. This may be the only treatment needed if your condition and symptoms are mild. ??? Medicines to relieve your symptoms, including: ? Medicines to shrink the prostate. ? Medicines to relax the muscle of the prostate. ??? Surgery in severe cases. Surgery may include: ? Prostatectomy. In this procedure, the prostate tissue is removed completely through an open incision or with a laparoscope or robotics. ? Transurethral resection of the prostate (TURP). In this procedure, a tool is inserted through the opening at the tip of the penis (urethra). It is used to cut away tissue of the inner core of the prostate. The pieces are removed through the same opening of the penis. This removes the blockage. ? Transurethral incision (TUIP). In this procedure, small cuts are made in the prostate. This lessens the prostate's pressure on the urethra. ? Transurethral microwave thermotherapy (TUMT). This procedure uses microwaves to create heat. The heat destroys and removes a small amount of prostate tissue. ? Transurethral needle ablation (TUNA). This procedure uses radio frequencies to destroy and remove a small amount of prostate tissue. ? Interstitial laser coagulation (ILC). This procedure uses a laser to destroy and remove a small amount of prostate tissue. ? Transurethral electrovaporization (TUVP). This procedure uses electrodes to destroy and remove a small amount of prostate tissue. ? Prostatic urethral lift. This procedure inserts an implant to push the lobes of the prostate away from the urethra. Follow these instructions at home: ??? Take pvzo-ohp-dldbcbc and prescription medicines only as told by your health care provider. ??? Monitor your symptoms for any changes. Contact your health care provider with any changes. ??? Avoid drinking large amounts of liquid before going to bed or out in public. ??? Avoid or reduce how much caffeine or alcohol you drink. ??? Give yourself time when you urinate. ??? Keep all follow-up visits. This is important. Contact a health care provider if: ??? You have unexplained back pain. ??? Your symptoms do not get (more content not included)... [facility] 02-11-2023 Hospital Discharge instructions Patient Education 02/11/2023 10:15:39 Benign Prostatic Hyperplasia Benign Prostatic Hyperplasia Benign prostatic hyperplasia (BPH) is an enlarged prostate gland that is caused by the normal aging process. The prostate may get bigger as a man gets older. The condition is not caused by cancer. The prostate is a walnut-sized gland that is involved in the production of semen. It is located in front of the rectum and below the bladder. The bladder stores urine. The urethra carries stored urine out of the body. An enlarged prostate can press on the urethra. This can make it harder to pass urine. The buildup of urine in the bladder can cause infection. Back pressure and infection may progress to bladder damage and kidney (renal) failure. What are the causes? This condition is part of the normal aging process. However, not all men develop problems from this condition. If the prostate enlarges away from the urethra, urine flow will not be blocked. If it enlarges toward the urethra and compresses it, there will be problems passing urine. What increases the risk? This condition is more likely to develop in men older than 50 years. What are the signs or symptoms? Symptoms of this condition include: Getting up often during the night to urinate. Needing to urinate frequently during the day. Difficulty starting urine flow. Decrease in size and strength of your urine stream. Leaking (dribbling) after urinating. Inability to pass urine. This needs immediate treatment. Inability to completely empty your bladder. Pain when you pass urine. This is more common if there is also an infection. Urinary tract infection (UTI). How is this diagnosed? This condition is diagnosed based on your medical history, a physical exam, and your symptoms. Tests will also be done, such as: A post-void bladder scan. This measures any amount of urine that may remain in your bladder after you finish urinating. A digital rectal exam. In a rectal exam, your health care provider checks your prostate by putting a lubricated, gloved finger into your rectum to feel the back of your prostate gland. This exam detects the size of your gland and any abnormal lumps or growths. An exam of your urine (urinalysis). A prostate specific antigen (PSA) screening. This is a blood test used to screen for prostate cancer. An ultrasound. This test uses sound waves to electronically produce a picture of your prostate gland. Your health care provider may refer you to a specialist in kidney and prostate diseases (urologist). How is this treated? Once symptoms begin, your health care provider will monitor your condition (active surveillance or watchful waiting). Treatment for this condition will depend on the severity of your condition. Treatment may include: Observation and yearly exams. This may be the only treatment needed if your condition and symptoms are mild. Medicines to relieve your symptoms, including: ?Medicines to shrink the prostate. ?Medicines to relax the muscle of the prostate. Surgery in severe cases. Surgery may include: ?Prostatectomy. In this procedure, the prostate tissue is removed completely through an open incision or with a laparoscope or robotics. ?Transurethral resection of the prostate (TURP). In this procedure, a tool is inserted through the opening at the tip of the penis (urethra). It is used to cut away tissue of the inner core of the prostate. The pieces are removed through the same opening of the penis. This removes the blockage. ?Transurethral incision (TUIP). In this procedure, small cuts are made in the prostate. This lessens the prostate's pressure on the urethra. ?Transurethral microwave thermotherapy (TUMT). This procedure uses microwaves to create heat. The heat destroys and removes a small amount of prostate tissue. ?Transurethral needle ablation (TUNA). This procedure uses radio frequencies to destroy and remove a small amount of prostate tissue. ?Interstitial laser coagulation (ILC). This procedure uses a laser to destroy and remove a small amount of prostate tissue. ?Transurethral electrovaporization (TUVP). This procedure uses electrodes to destroy and remove a small amount of prostate tissue. ?Prostatic urethral lift. This procedure inserts an implant to push the lobes of the prostate away from the urethra. Follow these instructions at home: Take ruoh-czc-tidqmas and prescription medicines only as told by your health care provider. Monitor your symptoms for any changes. Contact your health care provider with any changes. Avoid drinking large amounts of liquid before going to bed or out in public. Avoid or reduce how much caffeine or alcohol you drink. Give yourself time when you urinate. Keep all follow-up visits. This is important. Contact a health care provider if: You have unexplained back pain. Your symptoms do not get better with treatment. You develop side effects from the medicine you are taking. Your urine becomes very dark or has a bad smell. Your lower abdomen becomes distended and you have trouble passing urine. Get help right away if: You have a fever or chills. You suddenly cannot urinate. You feel light-headed or very dizzy, or you faint. There are large amounts of blood or clots in your urine. Your urinary problems become hard to manage. You develop moderate to severe low back or flank pain. The flank is the side of your body between the ribs and the hip. These symptoms may be an emergency. Get help right away. Call 911. Do not wait to see if the symptoms will go away. Do not drive yourself to the hospital. Summary Benign prostatic hyperplasia (BPH) is an enlarged prostate that is caused by the normal aging process. It is not caused by cancer. An enlarged prostate can press on the urethra. This can make it hard to pass urine. This condition is more likely to develop in men older than 50 years. Get help right away if you suddenly cannot urinate. This information is not intended to replace advice given to you by your health care provider. Make sure you discuss any questions you have with your health care provider. Document Revised: 10/09/2021 Document Reviewed: 10/09/2021 [employer] Patient Education 2022 [employer]. Follow Up Care 05/14/2022 10:02:37 With:RAYA DRAKE, Silviano Rodriguez, URL Address: [facility] [address] [place] [address]- When: Unknown [facility] 05-14-2022 Hospital Discharge instructions Patient Education 05/14/2022 09:58:07 Prostatitis Prostatitis Prostatitis is swelling or inflammation of the prostate gland. The prostate is a walnut-sized gland that is involved in the production of semen. It is located below a man's bladder, in front of the rectum. There are four types of prostatitis: Chronic nonbacterial prostatitis. This is the most common type of prostatitis. It may be associated with a viral infection or autoimmune disorder. Acute bacterial prostatitis. This is the least common type of prostatitis. It starts quickly and is usually associated with a bladder infection, high fever, and shaking chills. It can occur at any age. Chronic bacterial prostatitis. This type usually results from acute bacterial prostatitis that happens repeatedly (is recurrent) or has not been treated properly. It can occur in men of any age but is most common among middle-aged men whose prostate has begun to get larger. The symptoms are not as severe as symptoms caused by acute bacterial prostatitis. Prostatodynia or chronic pelvic pain syndrome (CPPS). This type is also called pelvic floor disorder. It is associated with increased muscular tone in the pelvis surrounding the prostate. What are the causes? Bacterial prostatitis is caused by infection from bacteria. Chronic nonbacterial prostatitis may be caused by: Urinary tract infections (UTIs). Nerve damage. A response by the body s disease-fighting system (autoimmune response). Chemicals in the urine. The causes of the other types of prostatitis are usually not known. What are the signs or symptoms? Symptoms of this condition vary depending upon the type of prostatitis. If you have acute bacterial prostatitis, you may experience: Urinary symptoms, such as: ?Painful urination. ?Burning during urination. ?Frequent and sudden urges to urinate. ?Inability to start urinating. ?A weak or interrupted stream of urine. Vomiting. Nausea. Fever. Chills. Inability to empty the bladder completely. Pain in the: ?Muscles or joints. ?Lower back. ?Lower abdomen. If you have any of the other types of prostatitis, you may experience: Urinary symptoms, such as: ?Sudden urges to urinate. ?Frequent urination. ?Difficulty starting urination. ?Weak urine stream. ?Dribbling after urination. Discharge from the urethra. The urethra is a tube that opens at the end of the penis. Pain in the: ?Testicles. ?Penis or tip of the penis. ?Rectum. ?Area in front of the rectum and below the scrotum (perineum). Problems with sexual function. Painful ejaculation. Bloody semen. How is this diagnosed? This condition may be diagnosed based on: A physical and medical exam. Your symptoms. A urine test to check for bacteria. An exam in which a health care provider uses a finger to feel the prostate (digital rectal exam). A test of a sample of semen. Blood tests. Ultrasound. Removal of prostate tissue to be examined under a microscope (biopsy). Tests to check how your body handles urine (urodynamic tests). A test to look inside your bladder or urethra (cystoscopy). How is this treated? Treatment for this condition depends on the type of prostatitis. Treatment may involve: Medicines to relieve pain or inflammation. Medicines to help relax your muscles. Physical therapy. Heat therapy. Techniques to help you control certain body functions (biofeedback). Relaxation exercises. Antibiotic medicine, if your condition is caused by bacteria. Warm water baths (sitz baths). Sitz baths help with relaxing your pelvic floor muscles, which helps to relieve pressure on the prostate. Follow these instructions at home: Take hepe-hty-hgpuhok and prescription medicines only as told by your health care provider. If you were prescribed an antibiotic, take it as told by your health care provider. Do not stop taking the antibiotic even if you start to feel better. If physical therapy, biofeedback, or relaxation exercises were prescribed, do exercises as instructed. Take sitz baths as directed by your health care provider. For a sitz bath, sit in warm water that is deep enough to cover your hips and buttocks. Keep all follow-up visits as told by your health care provider. This is important. Contact a health care provider if: Your symptoms get worse. You have a fever. Get help right away if: You have chills. You feel nauseous. You vomit. You feel light-headed or feel like you are going to faint. You are unable to urinate. You have blood or blood clots in your urine. This information is not intended to replace advice given to you by your health care provider. Make sure you discuss any questions you have with your health care provider. Document Released: 03/20/2001 Document Revised: 06/05/2018 Document Reviewed: 12/11/2016 [employer] Patient Education 2020 [employer]. Follow Up Care 11/06/2021 10:32:56 With:RAYA DRAKE, Silviano Rodriguez, URL Address: [facility] [address] , [place] [address]- When:6 months Comments:PSA [facility] 11-06-2021 Hospital Discharge instructions Patient Education 11/06/2021 10:26:33 Prostatitis Prostatitis Prostatitis is swelling or inflammation of the prostate gland. The prostate is a walnut-sized gland that is involved in the production of semen. It is located below a man's bladder, in front of the rectum. There are four types of prostatitis: Chronic nonbacterial prostatitis. This is the most common type of prostatitis. It may be associated with a viral infection or autoimmune disorder. Acute bacterial prostatitis. This is the least common type of prostatitis. It starts quickly and is usually associated with a bladder infection, high fever, and shaking chills. It can occur at any age. Chronic bacterial prostatitis. This type usually results from acute bacterial prostatitis that happens repeatedly (is recurrent) or has not been treated properly. It can occur in men of any age but is most common among middle-aged men whose prostate has begun to get larger. The symptoms are not as severe as symptoms caused by acute bacterial prostatitis. Prostatodynia or chronic pelvic pain syndrome (CPPS). This type is also called pelvic floor disorder. It is associated with increased muscular tone in the pelvis surrounding the prostate. What are the causes? Bacterial prostatitis is caused by infection from bacteria. Chronic nonbacterial prostatitis may be caused by: Urinary tract infections (UTIs). Nerve damage. A response by the body s disease-fighting system (autoimmune response). Chemicals in the urine. The causes of the other types of prostatitis are usually not known. What are the signs or symptoms? Symptoms of this condition vary depending upon the type of prostatitis. If you have acute bacterial prostatitis, you may experience: Urinary symptoms, such as: ?Painful urination. ?Burning during urination. ?Frequent and sudden urges to urinate. ?Inability to start urinating. ?A weak or interrupted stream of urine. Vomiting. Nausea. Fever. Chills. Inability to empty the bladder completely. Pain in the: ?Muscles or joints. ?Lower back. ?Lower abdomen. If you have any of the other types of prostatitis, you may experience: Urinary symptoms, such as: ?Sudden urges to urinate. ?Frequent urination. ?Difficulty starting urination. ?Weak urine stream. ?Dribbling after urination. Discharge from the urethra. The urethra is a tube that opens at the end of the penis. Pain in the: ?Testicles. ?Penis or tip of the penis. ?Rectum. ?Area in front of the rectum and below the scrotum (perineum). Problems with sexual function. Painful ejaculation. Bloody semen. How is this diagnosed? This condition may be diagnosed based on: A physical and medical exam. Your symptoms. A urine test to check for bacteria. An exam in which a health care provider uses a finger to feel the prostate (digital rectal exam). A test of a sample of semen. Blood tests. Ultrasound. Removal of prostate tissue to be examined under a microscope (biopsy). Tests to check how your body handles urine (urodynamic tests). A test to look inside your bladder or urethra (cystoscopy). How is this treated? Treatment for this condition depends on the type of prostatitis. Treatment may involve: Medicines to relieve pain or inflammation. Medicines to help relax your muscles. Physical therapy. Heat therapy. Techniques to help you control certain body functions (biofeedback). Relaxation exercises. Antibiotic medicine, if your condition is caused by bacteria. Warm water baths (sitz baths). Sitz baths help with relaxing your pelvic floor muscles, which helps to relieve pressure on the prostate. Follow these instructions at home: Take ytmd-nug-nmjnsik and prescription medicines only as told by your health care provider. If you were prescribed an antibiotic, take it as told by your health care provider. Do not stop taking the antibiotic even if you start to feel better. If physical therapy, biofeedback, or relaxation exercises were prescribed, do exercises as instructed. Take sitz baths as directed by your health care provider. For a sitz bath, sit in warm water that is deep enough to cover your hips and buttocks. Keep all follow-up visits as told by your health care provider. This is important. Contact a health care provider if: Your symptoms get worse. You have a fever. Get help right away if: You have chills. You feel nauseous. You vomit. You feel light-headed or feel like you are going to faint. You are unable to urinate. You have blood or blood clots in your urine. This information is not intended to replace advice given to you by your health care provider. Make sure you discuss any questions you have with your health care provider. Document Released: 03/20/2001 Document Revised: 06/05/2018 Document Reviewed: 12/11/2016 [employer] Patient Education 2020 [employer]. Follow Up Care 09/25/2021 12:31:12 With:Silviano BOOKER MD, URL Address: [facility] [address], [place] [phone] When:Within 6 Month(s) [facility] 09-16-2021 Note PROCEDURE: XR CLAVIC LE RT HISTORY: Disorder of bone ; right clavicle pain without injury COMPARISON: None. FINDINGS: BONES:Marked narrowing of the acromioclavicular joint with prominent undersurface osteophytes. No fracture, dislocation, bone lesion. SOFT TISSUES:No visible soft tissue swelling. EFFUSION:None visible. OTHER: Negative. IMPRESSION: 1. No acute bone abnormality. 2. Degenerative changes of the acromioclavicular joint which may contribute to patient's symptoms. Electronically authenticated by: RYAN PETERSEN Date: 2021-09-16 16:24 [facility] Evaluation + Plan note Future Appointments Appointment Date:05/14/2022 09:15:00 AM Scheduled Provider:Silviano BOOKER MD Location:[facility] Appointment Type:URO Office Visit [facility] Evaluation + Plan note Future Appointments Appointment Date:11/12/2022 11:15:00 AM Scheduled Provider:Silviano BOOKER MD Location:[facility] Appointment Type:URO Office Visit Diagnostic Tests PendingPSA Free & Total 05/14/22 [facility] Evaluation + Plan note Future Appointments Appointment Date:02/17/2024 09:15:00 AM Scheduled Provider:Silviano BOOKER MD Location:[facility] Appointment Type:URO Office Visit Diagnostic Tests PendingPSA Total 02/11/23 [facility] Evaluation + Plan note Future Appointments Appointment Date:02/22/2025 09:15:00 AM Scheduled Provider:Silviano BOOKER MD Location:[facility] Appointment Type:URO Office Visit Diagnostic Tests PendingPSA Total 02/17/24 [facility] Evaluation note No assessment inform ation available [facility] Work Phone: Evaluation note Diagnosis Annual physical exam- Primary Routine general medical examination at a health care facility Vitamin D deficiency Sebaceous cyst of left axilla Chronic pain of right knee- Primary documented in [facility] Narrative No data available for this section [facility] Progress note No data available for this section [facility] Summary Purpose Family History No Family History Records Found No data available for this section No Family History Records FoundNo Family History Records Found No data available for this section No Family History Records Found Advance Directives Advance Directive Response Recorded Date/ Time Advance Directives No May 4:55pm Advance Directive Response Recorded Date/ Time Advance Directives No May 5:55pm Chief Complaint and Reason for Visit Chief Complaint L762.3 Chief Complaint L762.3 Cough, fever Additional Source Comments Care Team (unrecognized sect ion and content) Team Status: Active Member Role Status Dates Alexander James II MD Primary Care Provider Active Team Status: Inactive Member Role Status Dates Alexander James II MD Primary Care Provider Active Start: May 21, 2023 End: May 21, 2023 Teo Francis DO Attending Provider Active Start : May 21, 2023 End: May 21, 2023 Team Status: Inactive Member Role Status Dates Alexander James II MD Primary Care Provider Active Start: July 14, 2023 End: July 14, 2023 Cori Restrepo APRN Attending Provider Active Start: July 14, 2023 End: July 14, 2023 Onion Topper Relationship Specialty Start Date End Date Asim Reilly MD [address] [place] [address] PCP - General Family Medicine 05/04/23 Asim Reilly MD [address] [place] [id number] PCP - Devoted 08/05/23 Onion Topper Relationship Specialty Start Date End Date Asim Reilly MD [address] [place] [id number] PCP - General Family Medicine 05/04/23 Asim Reilly MD [address] [place] [phone] PCP - Devoted 08/05/23 (unrecognized sect ion and content) No Status Records FoundNo Status Records FoundNo Status Records FoundNo Status Records Found INFORMATION SOURCE (unrecogn ized section and content) DATE CREATED AUTHOR 05/31/2022 [facility] [place] [facility] DATE CREATED AUTHOR AUTHOR'S ORGANIZ ATION 06/05/2023 [facility] DATE CREATED AUTHOR AUTHOR'S ORGANIZ ATION 06/05/2023 [facility] DATE CREATED AUTHOR AUTHOR'S ORGANIZ ATION 02/18/2024 [facility] Goals (unrecognized section and content) Goals may be documented in a n alternate section Reason for Visit (unrecogniz ed section and content) Reason Comments Knee Pain Right knee pain FOR RECORDS PERTAINING TO PATIENTS WHO ARE OR HAVE BEEN ENROLLED IN A CHEMICAL DEPENDENCY/SUBSTANCEABUSE PROGRAM, SOME INFORMATION MAY BE OMITTED. This clinical summary was aggregated from multiple sources. Caution should be exercised in using it in the provision of clinical care. This summary normalizes information from multiple sources, and as a consequence, information in this document may materially change the coding, format and clinical context of patient data. In addition, data may be omitted in some cases. CLINICAL DECISIONS SHOULD BE BASED ON THE PRIMARY CLINICAL RECORDS. [employer] [facility] provides no warranty or guarantee of the accuracy or completeness of information in this document.
== END 2024-03-07 10:45 | disposition home or self-care (01) ==
LOC: RAD 10:47
PROVIDERS: PCP Family Medicine; Visit Provider Family Medicine
DX: M25.561 Pain in right knee (principal); G89.29 Other chronic pain
CPT/HCPCS: 73560

== ENCOUNTER 2024-11-25 07:20 | Outpatient (OUT) | payer OTHER, SELFPAY ==
--- NOTE | 2024-11-25 | NM_ITS ---
Patient Name: KIMBERLYN WYNN MR#: [id number] : 1955 Exam Date: 11/25/2024 Ordering Doctor: DR JOAQUÍN REILLY . RADIOLOGY REPORT PROCEDURE: NM DENZEL PERF SPECT REST STR COMPARISON: None. INDICATIONS: CHEST PAIN TECHNIQUE: Exam Description: Stress/Rest one day protocol gated SPECT Rest Imagin.8 mCi Tc-99m Cardiolite IV on 11/25/2024 Stress Imaging 31.5 mCi Tc-99m Cardiolite IV on 11/25/2024 Exercise Protocol: 0.4 mg Lexiscan given IV Heart Rate (bpm): Rest: 59 Max: 82 PMHR: 54 Blood Pressure: Rest: 157/81 Max: 163/79 Symptoms: Rest and peak stress ECG findings were pending, and the exercise portion of the study was pending per attending [facility]. For more details, please see separate cardiac stress test report. FINDINGS: QUALITY OF STUDY: Good PERFUSION DEFECT: LOCATION: N/A SIZE: N/A SEVERITY: N/A TYPE: N/A WALL MOTION: Normal wall motion LV SIZE: 107 mL. TID / TCD: 1.0 LVEF: Calculated EF 60%. SUMMARY: Myocardial perfusion imaging study is normal CONCLUSION: 1. Myocardial perfusion is normal 2. Global left ventricular systolic function is normal 3. No evidence of significant transient ischemic dilatation Dictated by: Opal Zee M.D. on 11/25/2024 at 17:26 Approved by: Opal Zee M.D. on 11/25/2024 at 17:28
--- OUTSIDE RECORDS SUMMARY | 2024-11-25 07:23 | XMS_ITS | CCD ---
Author Organization [facility] Care Team Providers Care Director Of Dance Name Role Phone ASIM REILLY Primary Care Physician [phone] REQUEST, DR OTTO LISTED Admitting Unavaila ble [...] Consulting Unavailable LEO James Primary Care Provider [phone] DO Teo Mayo Attending Provider Teo Mayo Attending Unavailable Teo Mayo Admitting Unavailable Alexander James Primary Care Unavailable LEO James Primary Care Provider [phone] DO Teo Mayo Attending Provider [phone] Silviano BOOKER Attending Unavailable Silviano BOOKER Attending Unavailable Asim Reilly MD Primary Care Provider [phone] Asim Reilly MD Unavailable ASIM REILLY Attending Unavailable MARY FARRAR Attending Unavailable ASIM REILLY Attending Unavailable ODALYS KAPLAN Attending Unavailable ASIM REILLY Referring Unavailable ODALYS KAPLAN Referring Unavailable ASIM REILLY Attending Unavailable MARY FARRAR Attending Unavailable Medications Current Medications Medication Drug Class(es) Dates Sig (Normalized) Sig (Original) 24 hr alfuzosin hydrochloride 10 mg extended release oral tablet (20 sources) alpha-Adrenergic Isadora Start: 07-14-2023 Alfuzosin Active [...] Daily, # 30 tab(s), Refills(s) 11, Pharmacy: [id number]/pharmacy #[id number], 178, cm, 09/25/21 11:42:00 EDT, Height/Length Dosing, 97.7, kg, 09/25/21 11:42:00 EDT, Weight Dosing Start Date: 09/25/21 Status: Ordered celecoxib 200 mg oral capsule (8 sources) Nonsteroidal Anti-inflammatory Drug Start: 05-09-2024 End: 11-08-2024 take 1 capsule by mouth twice daily as needed for pain celecoxib (CeleBREX) 200 MG capsule Indications: Primary osteoarthritis of right knee Take 1 capsule (200 mg) by mouth 2 (two) times a day as needed for mild pain 60 capsule 3 05/09/2024 11/08/2024 Discontinued cetirizine hydrochloride 10 mg oral tablet (4 sources) Histamine-1 Receptor Antagonist Start: 03-12-2011 take 1 tablet by mouth once daily ZyrTEC 10 mg Tab 10 mg = 1 tab(s), Oral, Daily, tab(s), Refills(s) 0 Start Date: 03/12/11 Status: Ordered cholecalciferol 0.05 mg oral tablet (15 sources) Vitamin D End: 11-08-2024 take 1 tablet by mouth once daily cholecalciferol (Vitamin D-3) 50 MCG (1999 UT) tablet Take 1 tablet by mouth Daily 11/08/2024 Discontinued take 1 tablet by mouth in the mo rning cholecalciferol (Vitamin D-3) 50 MCG (1999 UT) tablet Take 1 tablet by mouth in the morning. Active furosemide 40 mg oral tablet (10 sources) Loop Diuretic Start: 05-09-2024 take 1 tablet by mouth once daily as needed for edema furosemide (Lasix) 40 MG tablet Indications: Edema of both lower legs Take 1 tablet (40 mg) by mouth Daily as needed (Edema) 30 tablet 3 05/09/2024 Active ibuprofen 800 mg oral tablet (4 sources) Nonsteroidal Anti-inflammatory Drug Start: 11-08-2024 take 1 tablet by mouth three times daily as needed for pain ibuprofen 800 MG tablet Indications: Primary osteoarthritis of right knee Take 1 tablet (800 mg) by mouth 3 (three) times a day as needed for mild pain 90 tablet 3 11/08/2024 Active loratadine 10 mg oral tablet (17 sources) take 1 tablet by mouth once daily loratadine (Claritin) 10 MG tablet Take 1 tablet by mouth Daily Active meloxicam 15 mg oral tablet (2 sources) Nonsteroidal Anti-inflammatory Drug Start: 11-14-2024 End: 01-13-2025 take 1 tablet by mouth once daily at mealtime meloxicam (Mobic) 15 MG tablet Indications: Acute pain of right knee , Chondromalacia, patella, right , Internal derangement of right knee Take 1 tablet (15 mg) by mouth Daily Take with food 30 tablet 1 11/14/2024 01/13/2025 Active nabumetone 500 mg oral tablet (8 sources) Nonsteroidal Anti-inflammatory Drug Start: 03-07-2024 End: 05-09-2024 take 1 tablet by mouth twice daily as needed for pain nabumetone (Relafen) 500 MG tablet Indications: Chronic pain of right knee Take 1 tablet (500 mg) by mouth 2 (two) times a day as needed for moderate pain or mild pain 60 tablet 3 03/07/2024 05/09/2024 Discontinued omeprazole 40 mg delayed release oral capsule (20 sources) Proton Pump Inhibitor Start: 07-25-2024 End: 11-08-2024 take 1 capsule by mouth once daily omeprazole (PriLOSEC) [address] capsule Indications: Gastroesophageal reflux disease without esophagitis TAKE 1 CAPSULE BY MOUTH EVERY DAY 90 capsule 3 07/25/2024 11/08/2024 Discontinued Start: 09-25-2021 take 1 capsule by mo uth once daily omeprazole (PriLOSEC) [address] capsule Indications: Gastroesophageal reflux disease without esophagitis TAKE 1 CAPSULE BY MOUTH EVERY DAY 90 capsule 3 04/23/2023 Active potassium chloride 20 meq extended release oral tablet (10 sources) Start: 06-01-2024 take 1 tablet by mouth once daily potassium chloride CR (K-Tab) 20 MEQ ER tablet Indications: Edema of both lower legs TAKE 1 TABLET BY MOUTH ONCE A DAY *DO NOT CRUSH/CHEW/SPLIT* 90 tablet 2 06/01/2024 Active Start: 05-09-2024 take 1 tablet by devora th once daily potassium chloride CR (K-Tab) 20 MEQ ER tablet Indications: Edema of both lower legs Take 1 tablet (20 mEq) by mouth Daily Do not crush, chew, or split. 30 tablet 3 05/09/2024 Active Start: 05-09-2024 take 1 tablet by devora th once daily potassium chloride CR (K-Tab) 20 MEQ ER tablet Indications: Edema of both lower legs Take 1 tablet (20 mEq) by mouth Daily Do not crush, chew, or split. 30 tablet 3 05/09/2024 Active predniSONE 50 mg oral tablet (3 [...] 2023 12:00am simvastatin 40 mg oral tablet (20 sources) HMG-CoA Reductase Inhibitor Start: 09-25-2021 End: 09-21-2024 take 1 tablet by mouth once daily simvastatin (Zocor) 40 MG tablet Indications: Dyslipidemia Take 1 tablet (40 mg) by mouth 1 (one) time each day at the same time 100 tablet 3 09/22/2023 Active Completed/Discontinued Medications Medication Drug Class(es) Dates Sig (Normalized) Sig (Original) 5 ml bupivacaine hydrochloride 5 mg/ml injection (4 sources) Amide Local Anesthetic Start: 11-14-2024 End: 11-14-2024 bupivacaine PF (Marcaine) 0.5 % injection 2 mL Start: 11-14-2024 End: 11-14-2024 2 mL, Injection, Once PRN Pr ocedure, Starting on Thu11/14/24 at 1137, For 1 dose 1 ml methylPREDNISolone acetate 40 mg/ml injection (4 sources) Corticosteroid Start: 11-14-2024 End: 11-14-2024 methylPREDNISolone acetate (DEPO-Medrol) injection 40 mg Start: 11-14-2024 End: 11-14-2024 40 mg, Intra-articular, Once PRN Procedure, Starting on Thu11/14/24 at 1137, For 1 dose Problems Active Problems Problem Classification Problem Date Documented Date Episodic/Chronic Disorders of lipid metabolism (20 sources) Dyslipidemia; Translations: [Hyperlipidemia] Onset: 04-14-2023 09-24-2021 Chronic Esophageal disorders (20 sources) Gastroesophageal reflux disease; Translations: [Gastroesophageal reflux disease without esophagitis] Onset: 04-14-2023 09-24-2021 Chronic Gout and other crystal arthropathies (17 sources) Gouty arthritis of multiple sites; Translations: [Idiopathic chronic gout, multiple sites, without tophus (tophi)] Onset: 04-14-2023 Resolved: 04-14-2023 04-14-2023 Chronic Hyperplasia of prostate (20 sources) Benign prostatic hypertrophy with outflow obstruction; Translations: [Benign prostatic hyperplasia with lower urinary tract symptoms] Onset: 11-06-2021 Chronic Inflammatory conditions of male genital organs (6 sources) Prostatitis; Translations: [Inflammatory disease of prostate, unspecified] Onset: 11-06-2021 Episodic Joint disorders and dislocations; trauma-related (8 sources) Chondromalacia of right patella; Translations: [Derangement of right knee] 11-14-2024 Chronic Nonspecific chest pain (8 sources) Chest pain; Translations: [Other chest pain] Onset: 11-08-2024 11-08-2024 Episodic Nutritional deficiencies (20 sources) Vitamin D deficiency; Translations: [Vitamin D deficiency, unspecified] Onset: 05-30-2022 09-24-2021 Chronic Osteoarthritis (20 sources) Arthritis; Translations: [Osteoarthritis of right knee joint] Onset: 03-07-2024 09-25-2021 Chronic Other and unspecified benign neoplasm (2 sources) Melanocytic nevus of trunk; Translations: [Melanocytic nevi of trunk] 10-24-2024 Episodic Other circulatory disease (2 sources) Spider nevus; Translations: [Nevus, non-neoplastic] 10-24-2024 Episodic Other non-traumatic joint disorders (10 sources) Pain in right knee; Translations: [Pain in joint, lower leg] Onset: 03-07-2024 03-07-2024 Episodic Other nutritional; endocrine; and metabolic disorders (4 sources) Body mass index 30+ - obesity 09-25-2021 Chronic Other nutritional; endocrine; and metabolic disorders (12 sources) Obesity caused by energy imbalance; Translations: [Class 1 obesity due to excess calories with serious comorbidity and body mass index (BMI) of 31.0 to 31.9 in adult] Onset: 05-09-2024 05-09-2024 Chronic Other skin disorders (1 source) Sebaceous cyst; Translations: [Sebaceous cyst] Onset: 05-21-2023 Episodic Other skin disorders (4 sources) Seborrheic keratosis; Translations: [Other seborrheic keratosis] 04-21-2024 Episodic Other skin disorders (4 sources) Inflamed seborrheic keratosis; Translations: [Inflamed seborrheic keratosis] 04-21-2024 Episodic Other skin disorders (2 sources) Pigmented purpuric dermatosis; Translations: [Other dyschromia] 04-21-2024 Episodic Other skin disorders (4 sources) Actinic keratosis; Translations: [Actinic keratosis] 04-21-2024 Episodic Other skin disorders (2 sources) Lentiginosis; Translations: [Other melanin hyperpigmentation] 10-24-2024 Episodic Other skin disorders (2 sources) Eruption; Translations: [Rash and other nonspecific skin eruption] 10-24-2024 Episodic Other upper respiratory disease (17 sources) Allergic rhinitis; Translations: [Allergic rhinitis, unspecified] Onset: 04-14-2023 04-14-2023 Chronic Screening and history of mental health and substance abuse codes (8 sources) Ex-smoker; Translations: [Personal history of nicotine dependence] Onset: 11-08-2024 11-08-2024 Episodic Unclassified (3 sources) CONTACT W/AND (SUSP) EXPOS COVID-19; Translations: [CONTACT W/AND (SUSP) EXPOS COVID-19] Onset: 10-11-2021 Viral infection (4 sources) Herpes simplex 09-25-2021 Episodic Past or Other Problems Problem Classification Problem Date Documented Da te Episodic/Chronic Diabetes mellitus without complication (19 sources) Prediabetes; Translations: [Prediabetes] Onset: 04-14-2023 04-14-2023 Episodic Mood disorders (10 sources) Mood disorders Onset: 05-09-2024 05-09-2024 Other aftercare (12 sources) Long-term current use of drug therapy; Translations: [Other extermination supervisor (current) drug therapy] Onset: 05-09-2024 05-09-2024 Episodic Other bone disease and musculoskeletal deformities (4 sources) Other specified disorders of bone, shoulder; Translations: [OTHER SPEC DISORDERS BONE SHOULDER] Onset: 09-16-2021 Episodic Other bone disease and musculoskeletal deformities (17 sources) Clavicle pain; Translations: [Other specified disorders of bone, shoulder] Onset: 04-14-2023 Resolved: 04-14-2023 04-14-2023 Episodic Other screening for suspected conditions (not mental disorders or infectious disease) (20 sources) Raised prostate specific antigen; Translations: [Elevated prostate specific antigen [PSA]] Onset: 11-04-2021 Resolved: 04-14-2023 Episodic Other skin disorders (17 sources) Sebaceous cyst of skin; Translations: [Sebaceous cyst] Onset: 04-14-2023 04-14-2023 Episodic Residual codes; unclassified (16 sources) Bilateral lower leg edema; Translations: [Localized edema] Onset: 05-09-2024 05-09-2024 Episodic Unclassified (1 source) LEFT SHOULDER OSTEOARTHRITIS( Confirmed ) 03-12-2011 Unclassified (1 source) SASONAL ALLERGIES( Confirmed ) 03-12-2011 Unclassified (3 sources) LEFT SHOULDER OSTEOARTHRITIS 03-12-2011 Unclassified (3 sources) SASONAL ALLERGIES 03-12-2011 Unclassified (1 source) CONTACT W/AND (SUSP) EXPOS COVID-19; Translations: [CONTACT W/AND (SUSP) EXPOS COVID-19] Onset: 10-08-2021 Results Test Name Value Interpretation Reference Range Facility No Panel Informationon 11-14 VIKASH Vadlez 11/14/2024 12:53 PM L Inj/Asp: R knee on 11/14/2024 11:37 AM Indications: pain Details: 22 G needle, anterolateral approach Medications: 40 mg methylPREDNISolone acetate 40 MG/ML; 2 mL bupivacaine PF 0.5 % Outcome: tolerated well, no immediate complications E UTILIZING ASEPTIC TECHNIQUE PT GIVEN INJECTION IN RIGHT KNEE, NEUROVASC INTACT S/P INJ, TOLERATED WELL Procedure, treatment alternatives, risks and benefits explained, specific risks discussed. Consent was given by the patient. Patient was prepped and draped in the usual sterile fashion. [facility] XR Knee - right 1 or 2 Views on 11-14-2024 Imaging Result: AP and Lateral weight bearing: Bones: The bony structures of the knee, including the distal femur, proximal tibia, and patella, appear normal. Stable alignment. There are no fractures, dislocations, or bony lesions noted. Joint Spaces: The joint spaces are well-maintained bilaterally with minimal narrowing medially. Pt has advanced patella femoral arthritic changes mostly noted to articular surface of patella. Soft Tissues: The surrounding soft tissues appear normal. There is no evidence of soft tissue swelling, with mild joint effusion present. Impression: Normal weight-bearing knee X-ray. No acute bony process with patella femoral arthritis [facility] Radiology Study observation (narrative) [facility] No Panel Informationon 10-24 [facility] No Panel Informationon 04-21 [facility] Ambulatory Visit Summaryon 1 04-18-2023 Ambulatory Visit Summary Ambulatory Visit Summary KIMBERLYN WYNN Mer :1955 Visit Date:02/17/2024 Ambulatory Visit Instructions Your Diagnosis BPH with urinary obstruction Your Care Team Attending Physician - RAYA DRAKE, Silviano Rodriguez Primary Care Physician - ASIM REILLY MD This Is Your Medications List alfuzosin (alfuzosin 10 mg ER Tab) Contact prescribing physician if questions or concerns cetirizine (ZyrTEC 10 mg Tab) omeprazole (omeprazole 40 mg Cap-DR) simvastatin (simvastatin 40 mg Tab) Procedures Performed COLONOSCOPY. Discharge Vitals Temperature (Temporal Artery) 37.4 ???C Heart Rate (Peripheral) 74 Respiratory Rate 16 Blood Pressure 144/73 Height 178 cm Height 70 in Weight 99 kg Weight 218.257 lb BMI 31.25 What to do next Scheduled Follow-Up Appointments Thursday 9:15 AM EST With: Silviano BOOKER MD Where: [facility] [address] [place] [address]- You Need to Schedule the Following Appointments Follow Up with Sivliano BOOKER MD, URL When: Where: [facility] [address] [place] [address]- Medications What How Much When Instructions Unchanged [...] and prosta (more content not included)... Normal [facility] Urology Office/Clinic Noteon 02-17-2024 Urology Office/Clinic [...] QD. Cont wo dosage changes. Sent to [facility]. IPSS 11 (8). Urination stable. Steady stream. Feels he empties completely. Occasional urgency which he attributes to fluid intake, holding his bladder too long, or beer. PSA decreased from prior, favorable. Will cont to monitor. Likely has chronic low grade infection contributing to PSA elevation/fluctuation. Follow up 1 yr with PSA or sooner if needed. Pt understands and agrees with plan. Follow-up With When Contact Information RAYA DRAKE, Silviano Rodriguez, URL [facility] [address], [place] [address]- Additional Instructions: 1 yr with PSA Patient Education Benign Prostatic Hyperplasia I, Natividad Friedman, personally scribed for Dr. Booker on 02/17/2024 [...] (02/17/24 09:30: (more content not included)... Normal [facility] Comment on above: Result Comment: Elec tronically Signed By: Silviano BOOKER MD\.br\Date and Time Signed: 02/17/24 10:22 EST\.br\Electronically Co-Signed By: Natividad Friedman\.br\Date and Time Co-Signed: 02/17/24 10:19 EST Jalil 05-21-2023 L Specimen: [id number] Received: 05/21/23 Status: TL Kelly Num: [id number] Spec Type: Surgical Subm Dr: Teo Mayo DO Tissues: A Skin Cyst (VANCE CYST) Procedures: HE, Gross/Micro L3 Age/ Patient Sex Location Account Attending Physician Kimberlyn Wynn/Moises MONZON [id number] Teo Mayo DO SPEC NUM: [id number] RECD: 05/21/23 STATUS: TL KELLY NUM: [id number] FAINA: 05/21/23- SUBM DR: Teo Mayo DO ENTERED: 05/21/[address]: Nickolas Cabezas [facility] SPEC TYPE: Surgical DEPT: S ENTERED BY: [id number] RECV BY: [id number] ORDERED: HE, Gross/Micro L3 ORDERED: HE, Gross/Micro [...] no firm or suspicious areas of wall.. [employer] sections are submitted in 1 cassette as follows: A1 - Full-thickness cross-sections to include area of disruption on skin surface Microscopic Description The microscopic findings support the above rendered diagnosis. ---- Specimen: [id number] Received: 05/21/23 Status: TL Kelly Num: [id number] Spec Type: Surgical Subm Dr: Teo Mayo DO Tissues: A Skin Cyst (VANCE CYST) Procedures: Jorge FERNANDO/Micro L3 ---- Patient: Kimberlyn Wynn [id number] (Continued) ---- Specimen: [id number] Received: 05/21/23 (Continued) Signed (signature on file) Sarah Hooker MD 05/22/23 1048 ---- Specimen: [id number] Received: 05/21/23 Status: TL Kelly Num: [id number] Spec Type: Surgical Subm Dr: Teo Mayo DO Tissues: A Skin Cyst (VANCE CYST) Procedures: Jorge FERNANDO/Tracy L3 ---- Patient: Kimberlyn Wynn [id number] (Continued) ---- Specimen: [id number] Received: 05/21/23 (Continued) CPT Codes 40668 ---- ---- Specimen: [id number] Received: 05/21/23 Status: TL Leticia Num: [id number] Spec Type: Surgical Subm Dr: Teo Mayo DO Tissues: A Skin Cyst (VANCE CYST) Procedures: Jorge FERNANDO/Tracy L3 ---- Patient: Kimberlyn Wynn [id number] (Continued) ---- Signed (signature on file) Sarah Hooker MD 05/22/23 1048 Normal [facility] CBC AUTO DIFFon 05-27-2022 BASO # 0.0 103/ul Normal 0.0-0.1 [facility] Comment on above: Performed By: #### D ATCBC #### [facility] [address] [address] [address] Pedro Hook Basophils/100 WBC (Bld) 0.9 % Normal 0.2-2.0 [facility] Comment on above: Performed By: #### D ATCBC #### [facility] [address] [address] [address] Pedro Hook EO # 0.1 103/ul Normal 0.0-0.7 [facility] Comment on above: Performed By: #### D ATCBC #### [facility] [address] [place] [address] Dr. Pedro Hook Eosinophils/100 WBC (Bld) 2.6 % Normal 0.9-7.0 [facility] Comment on above: Performed By: #### D ATCBC #### [facility] [address] [place] [address] Dr. Pedro Hook Erythrocyte distribution width (RBC) [Ratio] 12.6 % Normal 11.0-15.0 [facility] Comment on above: Performed By: #### D ATCBC #### [facility] [address] [place] [address] Dr. Pedro Hook Hematocrit (Bld) [Volume fraction] 42.3 % Normal 42.0-54.0 [facility] Comment on above: Performed By: #### D ATCBC #### [facility] [address] [place] [address] Dr. Pedro Hook Hemoglobin (Bld) [Mass/Vol] 15.1 g/dL Normal 14.0-18.0 [facility] Comment on above: Performed By: #### D ATCBC #### [facility] [address] [place] [address] Dr. Pedro Hook IG # 0.01 10e3/ul Normal 0.00-0.03 [facility] Comment on above: Performed By: #### D ATCBC #### [facility] [address] [place] [address] Dr. Pedro Hook IG % 0.2 % Normal 0.0-0.5 [facility] Comment on above: Performed By: #### D ATCBC #### [facility] [address] [place] [address] Dr. Pedro Hook LYMPH # 1.3 103/ul Normal 1.2-3.8 [facility] Comment on above: Performed By: #### D ATCBC #### [facility] [address] [place] [address] Dr. Pedro Hook Lymphocytes/100 WBC (Bld) 28.9 % Normal 20.5-60.0 [facility] Comment on above: Performed By: #### D ATCBC #### [facility] [address] [place] [address] Dr. Pedro Hook MCH (RBC) [Entitic mass] 31.3 pg Normal 25.9-34.0 [facility] Comment on above: Performed By: #### D ATCBC #### [facility] [address] [place] [address] Dr. Pedro Hook MCHC (RBC) [Mass/Vol] 35.7 g/dL Critically high 29.9-35.2 [facility] Comment on above: Performed By: #### D ATCBC #### [facility] [address] [place] [address] Dr. Pedro Hook MCV (RBC) [Entitic vol] 87.8 fL Normal 80.0-94.0 [facility] Comment on above: Performed By: #### D ATCBC #### [facility] [address] [place] [address] Dr. Pedro Hook MONO # 0.3 103/ul Normal 0.3-0.8 [facility] Comment on above: Performed By: #### D ATCBC #### [facility] [address] [place] [address] Dr. Pedro Hook Monocytes/100 WBC (Bld) 7.3 % Normal 1.7-12.0 [facility] Comment on above: Performed By: #### D ATCBC #### [facility] [address] [place] [address] Dr. Pedro Hook NEUT # 2.7 103/ul Normal 1.4-6.5 [facility] Comment on above: Performed By: #### D ATCBC #### [facility] [address] [address] [address] Pedro Hook Neutrophils/100 WBC (Bld) 60.1 % Normal 43.0-75.0 [facility] Comment on above: Performed By: #### D ATCBC #### [facility] [address] [address] [address] Pedro Hook Platelet mean volume (Bld) [Entitic vol] 9.2 fL Critically low 9.5-13.5 [facility] Comment on above: Performed By: #### D ATCBC #### [facility] [address] [address] [address] Pedro Hook PLT 143 103/ul Critically low 150-450 [facility] Comment on above: Performed By: #### D ATCBC #### [facility] [address] [address] [address] Pedro Hook RBC 4.82 106/ul Normal 4.70-6.10 [facility] Comment on above: Performed By: #### D ATCBC #### [facility] [address] [address] [address] Pedro Hook WBC 4.5 103/ul Normal 4.0-11.0 [facility] Comment on above: Performed By: #### D ATCBC #### [facility] [address] [address] [address] Pedro Hook HORACE - TSHon 05-27-2022 TSH 2.244 uIU/mL Normal 0.358-3.740 [facility] Comment on above: Performed By: #### D ATPSA, DATVITD, DATBMP, DATTSH ####[facility] [address] [address]Dr. Pedro Hook TSH RANGE SEE BELOW Normal [facility] Comment on above: Result Comment: <0.3 4 UIU/ml HYPERTHYROID 0.34-5.60 UIU/ml EUTHYROID >5.60 UIU/ml HYPOTHYROID Performed By: #### D ATPSA, DATVITD, DATBMP, DATTSH ####[facility] [address] [address]Dr. Pedro Hook HORACE - VITAMIN Don 05-27-2022 VIT D 25-OH 44.6 ng/mL Normal [facility] Comment on above: Performed By: #### D ATPSA, DATVITD, DATBMP, DATTSH ####[facility] [address] [address]Dr. Pedro Hook VIT D RANGES SEE BELOW Normal [facility] Comment on above: Result Comment: <20 ng/mL Vit D deficient 20 - <30 ng/mL Vit D insufficient 30 - 100 ng/mL Vit D sufficient >100 ng/mL Potential Toxicity Performed By: #### D ATPSA, DATVITD, DATBMP, DATTSH ####[facility] [address] [address]Dr. Pedro Hook HORACE- BMP WITH LIPIDon 2022 Anion gap [Moles/Vol] 11.2 mmol/L Normal [facility] Comment on above: Performed By: #### D ATPSA, DATVITD, DATBMP, DATTSH ####[facility] [address] [address]Dr. Pedro Hook Calcium [Mass/Vol] 9.2 mg/dL Normal 8.5-10.1 [facility] Comment on above: Performed By: #### D ATPSA, DATVITD, DATBMP, DATTSH ####[facility] [address] [address]Dr. Pedro Hook Chloride [Moles/Vol] 102 mmol/L Normal 98-107 [facility] Comment on above: Performed By: #### D ATPSA, DATVITD, DATBMP, DATTSH ####[facility] [address] [place] [address]Dr. Pedro Hook Cholesterol [Mass/Vol] 169 mg/dL Normal <=200 [facility] Comment on above: Performed By: #### D ATPSA, DATVITD, DATBMP, DATTSH ####[facility] [address] [address]Dr. Pedro Hook Cholesterol in HDL [Mass/Vol] 34 mg/dL Critically low 40-60 [facility] Comment on above: Performed By: #### D ATPSA, DATVITD, DATBMP, DATTSH ####[facility] [address] [address]Dr. Pedro Hook Cholesterol in LDL [Mass/Vol] 107.0 mg/dL Normal [facility] Comment on above: Performed By: #### D ATPSA, DATVITD, DATBMP, DATTSH ####[facility] [address] [place], [place] [address]Dr. Pedro Hook CO2 [Moles/Vol] 30.1 mmol/L Normal 21.0-32.0 [facility] Comment on above: Performed By: #### D ATPSA, DATVITD, DATBMP, DATTSH ####[facility] [address] [place], [place] [address]Dr. Pedro Hook Creatinine [Mass/Vol] 0.98 mg/dL Normal 0.70-1.30 [facility] Comment on above: Performed By: #### D ATPSA, DATVITD, DATBMP, DATTSH ####[facility] [address] [address]Dr. Pedro Hook EGFR-AF LIBERIAN >60 Normal >=60 [facility] Comment on above: Performed By: #### D ATPSA, DATVITD, DATBMP, DATTSH ####[facility] [address] [address]Dr. Pedro Hook EGFR-NON AF LIBERIAN >60 Normal >=60 [facility] Comment on above: Performed By: #### D ATPSA, DATVITD, DATBMP, DATTSH ####[facility] [address] [address]Dr. Pedro Hook Glucose [Mass/Vol] 119 mg/dL Critically high 74-106 [facility] Comment on above: Performed By: #### D ATPSA, DATVITD, DATBMP, DATTSH ####[facility] [address] [address]Dr. Pedro Hook HDL NORMAL > or = 60 mg/dl - LO W CARDIOVASCULAR RISK <40 mg/dl - HIGH CARDIOVASCULAR RISK Normal [facility] Comment on above: Performed By: #### D ATPSA, DATVITD, DATBMP, DATTSH ####[facility] [address] [address]Dr. Pedro Hook LDL CALC NORMAL SEE BELOW Normal [facility] Comment on above: Result Comment: <100 mg/dl OPTIMAL 100 - 129 mg/dl NEAR OR ABOVE OPTIMAL 130 - 159 mg/dl BORDERLINE HIGH 160 - 189 mg/dl HIGH >190 mg/dl VERY HIGH Performed By: #### D ATPSA, DATVITD, DATBMP, DATTSH ####[facility] [address] [address]Dr. Pedro Hook Potassium [Moles/Vol] 4.3 mmol/L Normal 3.5-5.1 [facility] Comment on above: Performed By: #### D ATPSA, DATVITD, DATBMP, DATTSH ####[facility] [address] [address]Dr. Pedro Hook Sodium [Moles/Vol] 139 mmol/L Normal 136-145 [facility] Comment on above: Performed By: #### D ATPSA, DATVITD, DATBMP, DATTSH ####[facility] [address] [address]Dr. Pedro Hook Triglyceride [Mass/Vol] 140 mg/dL Normal <=150 [facility] Comment on above: Performed By: #### D ATPSA, DATVITD, DATBMP, DATTSH ####[facility] [address] [address]Dr. Pedro Hook Urea nitrogen [Mass/Vol] 15.0 mg/dL Normal 7.0-18.0 [facility] Comment on above: Performed By: #### D ATPSA, DATVITD, DATBMP, DATTSH ####[facility] [address] [address]DrGato Hook Urea nitrogen/Creatinine [Mass ratio] 15.3 mg/mg Normal [facility] Comment on above: Performed By: #### D ATPSA, DATVITD, DATBMP, DATTSH ####[facility] [address] [address]DrGato Hook VLDL CALC 28.0 mg/dL Normal [facility] Comment on above: Performed By: #### D ATPSA, DATVITD, DATBMP, DATTSH ####[facility] [address] [address]DrGato Hook GLYCOHEMOGLOBIN A1Con 2022 ADA RECOMMENDATION SEE BELOW Normal [facility] Comment on above: Result Comment: ADA RECOMMENDED LIMIT 4.0 - 6.0 ADA THERAPEUTIC TARGET < 7.0 ACTION SUGGESTED > 7.0 Performed By: #### D ATA1C #### [facility] [address] [address] [address] Pedro Hook Glucose [Mass/Vol] 105 mg/dL Normal [facility] Comment on above: Performed By: #### D ATA1C #### [facility] [address] [address] [address] Pedro Hook HbA1c (Bld) [Mass fraction] 5.3 % Normal 4.5-6.2 [facility] Comment on above: Performed By: #### D ATA1C #### [facility] [address] [address] [address] Pedro Hook LIVER PROFILEon 05-27-2022 Albumin [Mass/Vol] 4.2 g/dL Normal 3.4-5.0 [facility] Comment on above: Performed By: #### L IVER #### [facility] [address] [address] [address] Pedro Hook Albumin/Globulin [Mass ratio] 1.1 {ratio} Normal [facility] Comment on above: Performed By: #### L IVER #### [facility] [address] [address] [address] Pedro Hook ALP [Catalytic activity/Vol] 96 U/L Normal 46-116 [facility] Comment on above: Performed By: #### L IVER #### [facility] [address] [place] [address] Dr. Pedro Hook ALT [Catalytic activity/Vol] 64 U/L Critically high 16-63 [facility] Comment on above: Performed By: #### L IVER #### [facility] [address] [place] [address] Dr. Pedro Hook AST [Catalytic activity/Vol] 30 U/L Normal 15-37 [facility] Comment on above: Performed By: #### L IVER #### [facility] [address] [place] [address] Dr. Pedro Hook BILI, CONJUGATED 0.1 mg/dL Normal 0.0-0.2 [facility] Comment on above: Performed By: #### L IVER #### [facility] [address] [place] [address] Dr. Pedro Hook Bilirubin [Mass/Vol] 0.6 mg/dL Normal 0.2-1.0 [facility] Comment on above: Performed By: #### L IVER #### [facility] [address] [place] [address] Dr. Pedro Hook Globulin (S) [Mass/Vol] 3.8 g/dL Normal [facility] Comment on above: Performed By: #### L IVER #### [facility] [address] [place] [address] Dr. Pedro Hook Protein [Mass/Vol] 8.0 g/dL Normal 6.4-8.2 [facility] Comment on above: Performed By: #### L IVER #### [facility] [address] [place] [address] Dr. Pedro Hook Cov[facility]-19 [facility] ([facility])on SARS-CoV-2 (COVID-19) RNA JACQUES+probe Ql (Unsp spec) [...] for this test is supported by the [place] of Health and Human Service's declaration that [...] C VDTB #### [facility] [address] [place], [place] [address] Dr. Pedro Hook PSA, FREE AND TOTAL RATIOon 09-20-2021 % Free PSA 14.3 % Normal [facility] Comment on above: Result Comment: The [...] Performed By: #### P SAFREE ####[facility] [address] [place], [place] [address]FzDr. Pedro Hook Prostate specific Ag [Mass/Vol] 11.6 ng/mL Critically high 0.0-4.0 [facility] Comment on above: Result Comment: Graeme OWENS methodology. . According to the [employer] [employer], Serum PSA should decrease and [...] Performed By: #### P SAFREE ####[facility] [address] [address]Dr. Pedro Hook PSA, Free 1.66 ng/mL Normal N/A [facility] Comment on above: Result Comment: Graeme OWENS methodology. Performed By: #### P SAFREE ####[facility] [address] [address]Dr. Pedro Hook CBC AUTO DIFFon 09-16-2021 BASO # 0.1 103/ul Normal 0.0-0.1 [facility] Comment on above: Performed By: #### D ATCBC #### [facility] [address] [place] [address] Dr. Pedro Hook Basophils/100 WBC (Bld) 0.9 % Normal 0.2-2.0 [facility] Comment on above: Performed By: #### D ATCBC #### [facility] [address] [place] [address] Dr. Pedro Hook EO # 0.3 103/ul Normal 0.0-0.7 [facility] Comment on above: Performed By: #### D ATCBC #### [facility] [address] [place] [address] Dr. Pedro Hook Eosinophils/100 WBC (Bld) 4.0 % Normal 0.9-7.0 [facility] Comment on above: Performed By: #### D ATCBC #### [facility] [address] [place] [address] Dr. Pedro Hook Erythrocyte distribution width (RBC) [Ratio] 12.8 % Normal 11.0-15.0 [facility] Comment on above: Performed By: #### D ATCBC #### [facility] [address] [place] [address] Dr. Pedro Hook Hematocrit (Bld) [Volume fraction] 42.6 % Normal 42.0-54.0 [facility] Comment on above: Performed By: #### D ATCBC #### [facility] [address] [place] [address] Dr. Pedro Hook Hemoglobin (Bld) [Mass/Vol] 14.5 g/dL Normal 14.0-18.0 [facility] Comment on above: Performed By: #### D ATCBC #### [facility] [address] [address] [address] Pedro Hook IG # 0.01 10e3/ul Normal 0.00-0.03 [facility] Comment on above: Performed By: #### D ATCBC #### [facility] [address] [place] [address] Dr. Pedro Hook IG % 0.1 % Normal 0.0-0.5 [facility] Comment on above: Performed By: #### D ATCBC #### [facility] [address] [place] [address] Dr. Pedro Hook LYMPH # 1.5 103/ul Normal 1.2-3.8 [facility] Comment on above: Performed By: #### D ATCBC #### [facility] [address] [place] [address] Dr. Pedro Hook Lymphocytes/100 WBC (Bld) 21.8 % Normal 20.5-60.0 [facility] Comment on above: Performed By: #### D ATCBC #### [facility] [address] [place] [address] Dr. Pedro Hook MCH (RBC) [Entitic mass] 31.5 pg Normal 25.9-34.0 [facility] Comment on above: Performed By: #### D ATCBC #### [facility] [address] [place] [address] Dr. Pedro Hook MCHC (RBC) [Mass/Vol] 34.0 g/dL Normal 29.9-35.2 [facility] Comment on above: Performed By: #### D ATCBC #### [facility] [address] [place] [address] Dr. Pedro Hook MCV (RBC) [Entitic vol] 92.4 fL Normal 80.0-94.0 [facility] Comment on above: Performed By: #### D ATCBC #### [facility] [address] [place] [address] Dr. Pedro Hook MONO # 0.6 103/ul Normal 0.3-0.8 [facility] Comment on above: Performed By: #### D ATCBC #### [facility] [address] [place] [address] Dr. Pedro Hook Monocytes/100 WBC (Bld) 7.8 % Normal 1.7-12.0 [facility] Comment on above: Performed By: #### D ATCBC #### [facility] [address] [place] [address] Dr. Pedro Hook NEUT # 4.6 103/ul Normal 1.4-6.5 [facility] Comment on above: Performed By: #### D ATCBC #### [facility] [address] [place] [address] Dr. Pedro Hook Neutrophils/100 WBC (Bld) 65.4 % Normal 43.0-75.0 [facility] Comment on above: Performed By: #### D ATCBC #### [facility] [address] [place] [address] Dr. Pedro Hook Platelet mean volume (Bld) [Entitic vol] 9.3 fL Critically low 9.5-13.5 [facility] Comment on above: Performed By: #### D ATCBC #### [facility] [address] [place] [address] Dr. Pedro Hook PLT 214 103/ul Normal 150-450 [facility] Comment on above: Performed By: #### D ATCBC #### [facility] [address] [place] [address] Dr. Pedro Hook RBC 4.61 106/ul Critically low 4.70-6.10 [facility] Comment on above: Performed By: #### D ATCBC #### [facility] [address] [place] [address] Dr. Pedro Hook WBC 7.0 103/ul Normal 4.0-11.0 [facility] Comment on above: Performed By: #### D ATCBC #### [facility] [address] [place] [address] Dr. Pedro Hook HORACE - TSHon 09-16-2021 TSH 2.707 uIU/mL Normal 0.358-3.740 [facility] [place] Comment on above: Performed By: #### D ATBMP, DATTSH, DATPSA #### [facility] [address] [place] [address] Dr. Pedro Hook TSH RANGE SEE BELOW Normal [facility] Comment on above: Result Comment: <0.3 4 UIU/ml HYPERTHYROID 0.34-5.60 UIU/ml EUTHYROID >5.60 UIU/ml HYPOTHYROID Performed By: #### D ATBMP, DATTSH, DATPSA #### [facility] [address] [place] [address] Dr. Pedro Hook HORACE- BMP WITH LIPIDon 2021 Anion gap [Moles/Vol] 10.4 mmol/L Normal [facility] Comment on above: Performed By: #### D ATBMP, DATTSH, DATPSA #### [facility] [address] [place] [address] Dr. Pedro Hook Calcium [Mass/Vol] 9.0 mg/dL Normal 8.5-10.1 [facility] Comment on above: Performed By: #### D ATBMP, DATTSH, DATPSA #### [facility] [address] [place] [address] Dr. Pedro Hook Chloride [Moles/Vol] 103 mmol/L Normal 98-107 [facility] Comment on above: Performed By: #### D ATBMP, DATTSH, DATPSA #### [facility] [address] [place] [address] Dr. Pedro Hook Cholesterol [Mass/Vol] 140 mg/dL Normal <=200 [facility] Comment on above: Performed By: #### D ATBMP, DATTSH, DATPSA #### [facility] [address] [address] [address] Pedro Hook Cholesterol in HDL [Mass/Vol] 33 mg/dL Critically low 40-60 [facility] Comment on above: Performed By: #### D ATBMP, DATTSH, DATPSA #### [facility] [address] [place] [address] Dr. Pedro Hook Cholesterol in LDL [Mass/Vol] 88.2 mg/dL Normal [facility] Comment on above: Performed By: #### D ATBMP, DATTSH, DATPSA #### [facility] [address] [address] [address] Pedro Hook CO2 [Moles/Vol] 29.8 mmol/L Normal 21.0-32.0 [facility] Comment on above: Performed By: #### D ATBMP, DATTSH, DATPSA #### [facility] [address] [place] [address] Dr. Pedro Hook Creatinine [Mass/Vol] 1.07 mg/dL Normal 0.70-1.30 [facility] Comment on above: Performed By: #### D ATBMP, DATTSH, DATPSA #### [facility] [address] [place] [address] Dr. Pedro Hook EGFR-AF LIBERIAN >60 Normal >=60 [facility] Comment on above: Performed By: #### D ATBMP, DATTSH, DATPSA #### [facility] [address] [place] [address] Dr. Pedro Hook EGFR-NON AF LIBERIAN >60 Normal >=60 [facility] Comment on above: Performed By: #### D ATBMP, DATTSH, DATPSA #### [facility] [address] [place] [address] Dr. Pedro Hook Glucose [Mass/Vol] 113 mg/dL Critically high 74-106 [facility] Comment on above: Performed By: #### D ATBMP, DATTSH, DATPSA #### [facility] [address] [place] [address] Dr. Pedro Hook HDL NORMAL > or = 60 mg/dl - LO W CARDIOVASCULAR RISK <40 mg/dl - HIGH CARDIOVASCULAR RISK Normal [facility] Comment on above: Performed By: #### D ATBMP, DATTSH, DATPSA #### [facility] [address] [address] [address] Pedro Hook LDL CALC NORMAL SEE BELOW Normal [facility] Comment on above: Result Comment: <100 mg/dl OPTIMAL 100 - 129 mg/dl NEAR OR ABOVE OPTIMAL 130 - 159 mg/dl BORDERLINE HIGH 160 - 189 mg/dl HIGH >190 mg/dl VERY HIGH Performed By: #### D ATBMP, DATTSH, DATPSA #### [facility] [address] [address] [address] Pedro Hook Potassium [Moles/Vol] 5.2 mmol/L Critically high 3.5-5.1 [facility] Comment on above: Performed By: #### D ATBMP, DATTSH, DATPSA #### [facility] [address] [address] [address] Pedro Hook Sodium [Moles/Vol] 138 mmol/L Normal 136-145 [facility] Comment on above: Performed By: #### D ATBMP, DATTSH, DATPSA #### [facility] [address] [address] [address] Pedro Hook Triglyceride [Mass/Vol] 94 mg/dL Normal <=150 [facility] Comment on above: Performed By: #### D ATBMP, DATTSH, DATPSA #### [facility] [address] [address] [address] Pedro Hook Urea nitrogen [Mass/Vol] 14.0 mg/dL Normal 7.0-18.0 [facility] Comment on above: Performed By: #### D ATBMP, DATTSH, DATPSA #### [facility] [address] [address] [address] Pedro Hook Urea nitrogen/Creatinine [Mass ratio] 13.1 mg/mg Normal [facility] Comment on above: Performed By: #### D ATBMP, DATTSH, DATPSA #### [facility] [address] [address] [address] Pedro Hook VLDL CALC 18.8 mg/dL Normal [facility] Comment on above: Performed By: #### D ATBMP, DATTSH, DATPSA #### [facility] [address] [address] [address] Pedro Hook GLYCOHEMOGLOBIN A1Con 2021 ADA RECOMMENDATION SEE BELOW Normal [facility] Comment on above: Result Comment: ADA RECOMMENDED LIMIT 4.0 - 6.0 ADA THERAPEUTIC TARGET < 7.0 ACTION SUGGESTED > 7.0 Performed By: #### D ATA1C #### [facility] [address] [address] [address] Pedro Hook Glucose [Mass/Vol] 120 mg/dL Normal [facility] Comment on above: Performed By: #### D ATA1C #### [facility] [address] [address] [address] Pedro Hook HbA1c (Bld) [Mass fraction] 5.8 % Normal 4.5-6.2 [facility] Comment on above: Performed By: #### D ATA1C #### [facility] [address] [address] [address] Pedro Hook Vital Signs Date Time Vital Sign Value Performing Clinician Facility 11-08-2024 10:04040 Body height 177.8 cm Asim Reilly MD Work Phone: [facility] 11-08-2024 10:04-040 Body mass index (BMI) [Ratio] 29.84 kg/m2 Asim Reilly MD Work Phone: [facility] 11-08-2024 10:04-040 Body temperature 97.5 [degF] Asim Reilly MD Work Phone: [facility] 11-08-2024 10:04-0400 Body weight 94.35 kg Asim Reilly MD Work Phone: [facility] 11-08-2024 10:04-0400 Diastolic blood pressure 72 mm[Hg] Asim Reilly MD Work Phone: [facility] 11-08-2024 10:04-0400 Heart rate 70 /min Asim Reilly MD Work Phone: [facility] 11-08-2024 10:04-0400 Respiratory rate 20 /min Asim Reilly MD Work Phone: [facility] 11-08-2024 10:04-0400 SaO2% (BldA) [Mass fraction] 97 % Asim Reilly MD Work Phone: [facility] 11-08-2024 10:04-0400 Systolic blood pressure 144 mm[Hg] Asim Reilly MD Work Phone: [facility] 05-09-2024 10:26-0500 Body height 177.8 cm Asim Reilly MD Work Phone: [facility] 05-09-2024 10:26-0500 Body mass index (BMI) [Ratio] 31.42 kg/m2 Asim Reilly MD Work Phone: [facility] 05-09-2024 10:26-0500 Body temperature 97.81 [degF] Asim Reilly MD Work Phone: [facility] 05-09-2024 10:26-0500 Body weight 99.34 kg Asim Reilly MD Work Phone: [facility] 05-09-2024 10:26-0500 Diastolic blood pressure 58 mm[Hg] Asim Reilly MD Work Phone: [facility] 05-09-2024 10:26-0500 Heart rate 73 /min Asim Reilly MD Work Phone: [facility] 05-09-2024 10:26-0500 Respiratory rate 20 /min Asim Reilly MD Work Phone: [facility] 05-09-2024 10:26-0500 SaO2% (BldA) [Mass fraction] 94 % Asim Reilly MD Work Phone: [facility] 05-09-2024 10:26-0500 Systolic blood pressure 124 mm[Hg] Asim Reilly MD Work Phone: [facility] 03-07-2024 09:54-0500 Body height 177.8 cm Asim Reilly MD Work Phone: [facility] 03-07-2024 09:54-0500 Body mass index (BMI) [Ratio] 31.28 kg/m2 Asim Reilly MD Work Phone: [facility] 03-07-2024 09:54-0500 Body temperature 97.11 [degF] Asim Reilly MD Work Phone: [facility] 03-07-2024 09:54-0500 Body weight 98.88 kg Asim Reilly MD Work Phone: [facility] 03-07-2024 09:54-0500 Diastolic blood pressure 58 mm[Hg] Asim Reilly MD Work Phone: [facility] 03-07-2024 09:54-0500 Heart rate 78 /min Asim Reilly MD Work Phone: [facility] 03-07-2024 09:54-0500 Respiratory rate 20 /min Asim Reilly MD Work Phone: [facility] 03-07-2024 09:54-0500 SaO2% (BldA) [Mass fraction] 96 % Asim Reilly MD Work Phone: [facility] 03-07-2024 09:54-0500 Systolic blood pressure 126 mm[Hg] Asim Reilly MD Work Phone: [facility] 02-17-2024 09:34-0500 Body temperature 99.32 [degF] Silviano BOOKER [facility] 02-17-2024 09:34-0500 Diastolic blood pressure 73 mm[Hg] Silviano BOOKER [facility] 02-17-2024 09:34-0500 Heart rate 74 /min Silviano BOOKER [facility] 02-17-2024 09:34-0500 Respiratory rate 16 /min Silviano BOOKER [facility] 02-17-2024 09:34-0500 Systolic blood pressure 144 mm[Hg] Silviano BOOKER [facility] 07-14-2023 09:48-0400 Body height 177.8 cm II Alexander James Work Phone: [facility] 07-14-2023 09:48-0400 Body mass index (BMI) [Ratio] 31 kg/m2 II Alexander James Work Phone: [facility] 07-14-2023 09:48-0400 Body temperature 98.3 [degF] II Alexander James Work Phone: [facility] 07-14-2023 09:48-0400 Body weight 98.08 kg II Alexander James Work Phone: [facility] 07-14-2023 09:48-0400 Heart rate 66 /min II Alexander James Work Phone: [facility] 07-14-2023 09:48-0400 Respiratory rate 18 /min II Alexander James Work Phone: [facility] 07-14-2023 09:48-0400 SaO2% (BldA) [Mass fraction] 96 % II Alexander James Work Phone: [facility] 02-11-2023 09:35-0500 Diastolic blood pressure 74 mm[Hg] Silviano BOOKER [facility] 02-11-2023 09:35-0500 Heart rate 67 /min Silviano BOOKER [facility] 02-11-2023 09:35-0500 Systolic blood pressure 134 mm[Hg] Silviano BOOKER [facility] 05-14-2022 09:23-0500 Blood Pressure Location Silviano BOOKER [facility] 05-14-2022 09:23-0500 Diastolic blood pressure 65 mm[Hg] Silviano BOOKER [facility] 05-14-2022 09:23-0500 Heart rate 62 /min Silviano BOOKER [facility] 05-14-2022 09:23-0500 Systolic blood pressure 157 mm[Hg] Silviano BOOKER [facility] 11-06-2021 09:34-0400 Blood Pressure Location Silviano BOOKER [facility] 11-06-2021 09:34-0400 Diastolic blood pressure 76 mm[Hg] Silviano BOOKER [facility] 11-06-2021 09:34-0400 Heart rate 70 /min Silviano BOOKER [facility] 11-06-2021 09:34-0400 Respiratory rate 16 /min Silviano BOOKER [facility] 11-06-2021 09:34-0400 Systolic blood pressure 138 mm[Hg] Silviano BOOKER [facility] Farida Encounters Encounter Date Encounter Type Care Provider Facility Start: 02-22-2025 ambulatory Silviano Park ty:ANGELA Farida Start: 11-14-2024 End: 11-14-2024 Office outpatient new 45 minutes Odalys SUH Work Phone: [facility] Comment on above: Acute pain of right knee (Primary Dx); Chondromalacia, patella, right; Internal derangement of right knee Start: 11-14-2024 End: 11-14-2024 ambulatory ODALYS KAPLAN Not Available Start: 11-08-2024 End: 11-08-2024 Bamboo flowsheet Asim Reilly MD Work Phone: [facility] Start: 11-08-2024 End: 11-08-2024 Bamboo flowsheet Asim Reilly MD Work Phone: [facility] Start: 11-08-2024 End: 11-08-2024 Office outpatient visit 25 minutes Asim Reilly MD Work Phone: [facility] Comment on above: Primary osteoarthrit is of right knee (Primary Dx); Other chest pain; Edema of both lower legs; BPH without obstruction/lower urinary tract symptoms; Former smoker Start: 11-08-2024 End: 11-08-2024 ambulatory ASIM REILLY Not Available Start: 10-24-2024 End: 10-24-2024 Bamboo flowsheet Mary Farrar TRANSITION OF CARE SPECIALIST-LANGUAGE INTERPRETER Work Phone: [facility] Start: 10-24-2024 End: 10-24-2024 Bamboo flowsheet Mary Bennetter TRANSITION OF CARE SPECIALIST-LANGUAGE INTERPRETER Work Phone: [facility] Start: 10-24-2024 End: 10-24-2024 Office outpatient visit 15 minutes Mary Farrar TRANSITION OF CARE SPECIALIST-LANGUAGE INTERPRETER Work Phone: [facility] Comment on above: Seborrheic keratosis ; Lentigines; Melanocytic nevus of trunk; Capillary angioma; Seborrheic keratosis, inflamed; Actinic keratosis; Rash and other nonspecific skin eruption Start: 10-24-2024 End: 10-24-2024 ambulatory MARY A FELTER Not Available Start: 05-09-2024 End: 05-09-2024 Bamboo flowsheet Asim Reilly MD Work Phone: [facility] Start: 05-09-2024 End: 05-09-2024 Bamboo flowsheet Asim Reilly MD Work Phone: [facility] Start: 05-09-2024 End: 05-09-2024 ambulatory ASIM REILLY Not Available Start: 05-09-2024 End: 05-09-2024 Office outpatient visit 15 minutes Asim Reilly MD Work Phone: [facility] Comment on above: Encounter for Medica re annual wellness exam (Primary Dx); Dyslipidemia (CMS/HCC); Prediabetes; Encounter for long-term (current) use of medications; Class 1 obesity due to excess calories with serious comorbidity and body mass index (BMI) of 31.0 to 31.9 in adult; Encounter for screening prostate specific antigen (PSA) measurement; Edema of both lower legs; Primary osteoarthritis of right knee Start: 05-09-2024 End: 05-09-2024 Patient encounter procedure Asim Reilly MD Work Phone: [facility] Work Phone: Start: 04-21-2024 End: 04-21-2024 Bamboo Plenummediaheet Mary A Felter TRANSITION OF CARE SPECIALIST-LANGUAGE INTERPRETER Work Phone: [facility] Start: 04-21-2024 End: 04-21-2024 Bamboo Plenummediaheet Mary A Felter TRANSITION OF CARE SPECIALIST-LANGUAGE INTERPRETER Work Phone: [facility] Start: 04-21-2024 End: 04-21-2024 ambulatory MARY A FELTER Not Available Start: 04-21-2024 End: 04-21-2024 Office outpatient new 30 minutes Mary A Felter TRANSITION OF CARE SPECIALIST-LANGUAGE INTERPRETER Work Phone: [facility] Comment on above: Seborrheic keratosis ; Seborrheic keratosis, inflamed; Pigmented purpuric dermatosis; Actinic keratosis Start: 03-07-2024 End: 03-07-2024 Bamboo flowsheet Asim Reilly MD Work Phone: [facility] Start: 03-07-2024 End: 03-07-2024 Bamboo flowsheet Asim Reilly MD Work Phone: [facility] Start: 03-07-2024 End: 03-07-2024 Office outpatient visit 15 minutes Asim Reilly MD Work Phone: [facility] Comment on above: Chronic pain of righ t knee (Primary Dx) Start: 03-07-2024 End: 03-07-2024 ambulatory ASIM REILLY Not Available Start: 02-17-2024 End: 02-17-2024 ambulatory Silviano BOOKER Facility:[facility] Start: 02-17-2024 End: 02-17-2024 Patient encounter procedure Silviano BOOKER [facility] Start: 07-14-2023 End: 07-14-2023 ambulatory II Alexander James Work Phone: [facility] Work Phone: Start: 07-14-2023 End: 07-14-2023 Patient encounter procedure II Alexander James Work Phone: [facility] Work Phone: Start: 05-21-2023 End: 05-21-2023 ambulatory Teo Mayo Facility:[facility] Start: 05-21-2023 End: 05-21-2023 ambulatory II Alexander James Work Phone: [facility] Work Phone: Start: 05-21-2023 End: 05-21-2023 Departed Referred II Alexander James Work Phone: [facility] Work Phone: Start: 04-14-2023 Patient encounter procedure Asim Reilly MD Work Phone: [facility] Start: 02-11-2023 End: 02-11-2023 Patient encounter procedure Silviano BOOKER [facility] Start: 05-30-2022 Encounter for genera l adult medical examination without abnormal findings DR ASIM REILLY [facility] Start: 05-27-2022 End: 05-28-[address] ASIM REILLY Facility:[facility] Start: 05-27-2022 End: 05-28-2022 Encounter for general adult medical examination without abnormal findings DR ASIM REILLY Facility:[facility] Start: 05-14-2022 End: 05-14-2022 Patient encounter procedure Silviano BOOKER [facility] Start: 11-06-2021 End: 11-06-2021 Patient encounter procedure Silviano BOOKER [facility] Start: 11-04-2021 End: 11-05-[address] SILVIANO BOOKER . Facility:[facility] Start: 10-08-2021 End: 10-08-[address] ASIM REILLY Facility:[facility] Start: 09-19-2021 End: 09-20-[address] ASIM REILLY Facility:[facility] Start: 09-16-2021 End: 09-17-[address] ASIM REILLY Facility:[facility] Procedures Date Procedure Procedure Detail Performing Clinician Start: 11-14-2024 Arthrocentesis aspir &/inj major jt/bursa w/o us Odalys SUH Work Phone: Start: 11-14-2024 Radiologic examinati on knee 1/2 views Odalys SUH Work Phone: Start: 10-24-2024 End: 10-24-2024 CRYOTHERAPY SKIN LESION Mary Farrar TRANSITION OF CARE SPECIALIST-LANGUAGE INTERPRETER Work Phone: Start: 04-21-2024 End: 04-21-2024 CRYOTHERAPY SKIN LESION Mary Farrar TRANSITION OF CARE SPECIALIST-LANGUAGE INTERPRETER Work Phone: Start: 05-27-[address] FAM Brand ISTED REQUEST Comment on above: Performed By: #### D ATPSA, DATVITD, DATBMP, DATTSH ####[facility] [id number] [place], [place] [address]Jb. Pedro Hook Start: 11-04-[address] FAM Brand ISTED REQUEST Comment on above: Performed By: #### P SAD ####[facility] [id number] [place] [id number] Start: 09-16-[address] FAM Brand ISTED REQUEST Comment on above: Performed By: #### D ATBMP, DATTSH, DATPSA #### [facility] [address] [place], [place] [address] Dr. Pedro Hook Start: 05-26-2016 Colonoscopy Asim anglin MD Work Phone: Colonoscopy Silviano RAYA Plan of Treatment Date Care Activity Detail Author Start: 05-26-2026 Screening for malign ant neoplasm of colon [facility] Start: 11-08-2025 Screening for malign ant neoplasm of lung Lung Cancer Screening Shared Decision Making [facility] Comment on above: Postponed from 06/02 (Other Medical Reasons) Start: 10-24-2025 End: 10-24-2025 Patient encounter procedure [facility] Start: 05-16-2025 End: 05-16-2025 Patient encounter procedure 05/16/2025 11:00 AM EST Office Visit [facility] [address] [place] [address] Asim Reilly MD [address] [place] [place] [address] [facility] Start: 05-09-2025 Medicare Annual Wellness (AWV) Medicare Annual Wellness (AWV) [facility] Start: 12-12-2024 End: 12-12-2024 Patient encounter procedure 12/12/2024 10:30 AM EDT Office Visit [facility] [address] [place] [address] Odalys Kaplan, PA [address] [place] [address] [facility] Start: 12-05-2024 Influenza vaccination Influenza Vacc ine (#1) [facility] Start: 11-08-2024 End: 11-08-2025 CT Chest for screening WO contrast CT lung screening low dose Imaging Routine Former smoker Expected: 11/08/2024, Expires: 11/08/2025 [facility] Comment on above: Expected: 11/08/2024 , Expires: 11/08/2025 Start: 11-08-2024 End: 11-08-2026 NM Heart Perfusion W single state of exercise Stress test with myocardial perfusion Cardiac Nuclear Medicine Routine Other chest pain Edema of both lower legs Expected: 11/08/2024 (Approximate), Expires: 11/08/2026 [facility] Work Phone: Comment on above: Expected: 11/08/2024 (Approximate), Expires: 11/08/2026 Start: 11-08-2024 End: 11-08-2024 Patient encounter procedure [facility] Comment on above: Arrived Start: 10-24-2024 End: 10-24-2024 Patient encounter procedure [facility] Comment on above: Arrived Start: 05-09-2024 End: 05-09-2025 Basic metabolic 1998 panel - Serum or Plasma Basic metabolic panel Lab Routine Encounter for long-term (current) use of medications Expected: 05/09/2024 (Approximate), Expires: 05/09/2025 [facility] Comment on above: Expected: 05/09/2024 (Approximate), Expires: 05/09/2025 Start: 05-09-2024 End: 05-09-2025 CBC W Auto Differential panel - Blood CBC and differential Lab Routine Encounter for long-term (current) use of medications Expected: 05/09/2024 (Approximate), Expires: 05/09/2025 [facility] Comment on above: Expected: 05/09/2024 (Approximate), Expires: 05/09/2025 Start: 05-09-2024 End: 05-09-2025 Hemoglobin A1c/Hemoglobin.total in Blood Hemoglobin A1c Lab Routine Prediabetes Expected: 05/09/2024 (Approximate), Expires: 05/09/2025 [facility] Work Phone: Comment on above: Expected: 05/09/2024 (Approximate), Expires: 05/09/2025 Start: 05-09-2024 End: 05-09-2025 Hepatic function 2000 panel - Serum or Plasma Hepatic function panel Lab Routine Encounter for long-term (current) use of medications Expected: 05/09/2024 (Approximate), Expires: 05/09/2025 [facility] Comment on above: Expected: 05/09/2024 (Approximate), Expires: 05/09/2025 Start: 05-09-2024 End: 05-09-2025 Lipid 1996 panel - Serum or Plasma Lipid panel Lab Routine Dyslipidemia (CMS/HCC) Expected: 05/09/2024 (Approximate), Expires: 05/09/2025 [facility] Comment on above: Expected: 05/09/2024 (Approximate), Expires: 05/09/2025 Start: 05-09-2024 End: 05-09-2025 Prostate specific Ag [Mass/volume] in Serum or Plasma PSA Lab Routine Encounter for screening prostate specific antigen (PSA) measurement Expected: 05/09/2024 (Approximate), Expires: 05/09/2025 [facility] Comment on above: Expected: 05/09/2024 (Approximate), Expires: 05/09/2025 Start: 05-09-2024 End: 05-09-2025 Thyrotropin [Units/volume] in Serum or Plasma TSH Lab Routine Class 1 obesity due to excess calories with serious comorbidity and body mass index (BMI) of 31.0 to 31.9 in adult Expected: 05/09/2024 (Approximate), Expires: 05/09/2025 [facility] Comment on above: Expected: 05/09/2024 (Approximate), Expires: 05/09/2025 Start: 05-09-2024 End: 05-09-2024 Patient encounter procedure 05/09/2024 10:15 AM EST [facility] [address] [place] [address] Asim Reilly MD [address] [place] [address] [facility] Start: 04-14-2024 Medicare Annual Wellness (AWV) Medicare Annual Wellness (AWV) [facility] Start: 03-07-2024 End: 03-07-2025 XR Knee - right 1 or 2 Views XR knee 1 or 2 views right Imaging Routine Chronic pain of right knee Expected: 03/07/2024, Expires: 03/07/2025 [facility] Work Phone: Comment on above: Expected: 03/07/2024 , Expires: 03/07/2025 Start: 03-07-2024 End: 03-07-2024 Patient encounter procedure 03/07/2024 9:45 AM EST Office Visit [facility] [address] [place] [id number] Asim Reilly MD [address] [place] [address] Arrived [facility] Comment on above: Arrived Start: 12-06-2023 Influenza vaccination Influenza Vacc ine (#1) [facility] Start: 2019 Pneumococcal Vaccine : 65+ Years (1 of 1 - PCV) Pneumococcal Vaccine: 65+ Years (1 of 1 - PCV) [facility] Start: 2004 Pneumococcal Vaccine : 65+ Years (1 of 1 - PCV) Pneumococcal Vaccine: 65+ Years (1 of 1 - PCV) [facility] Start: 1954 Screening for malign ant neoplasm of colon [facility] Start: 1954 Screening for malign ant neoplasm of lung Lung Cancer Screening Shared Decision Making [facility] Immunizations Immunization Date Immunization Notes Care Provider [employer] pink 04-30-2021 SARS-CoV-2 (COVID-19 ) mRNA-1273 vaccine Silviano BOOKER [facility] 09-04-2020 SARS-CoV-2 (COVID-19 ) mRNA-1273 vaccine Silviano BOOKER [facility] 08-04-2020 SARS-CoV-2 (COVID-19 ) mRNA-1273 vaccine Silviano BOOKER [facility] 06-19-2020 SARS-CoV-2 (COVID-19 ) mRNA-1273 vaccine Silviano BOOKER [facility] 05-24-2020 SARS-CoV-2 (COVID-19 ) mRNA-1273 vaccine Silviano BOOKER [facility] 05-22-2019 zoster vaccine recombinant Silvianodianelys BOOKER [facility] 04-29-2016 zoster vaccine, live Silviano BOOKER [facility] Payers Date Payer Category Payer Medicare (Managed Care) [facility] [id number] 2023 Medicare [id number] 1959 Self-pay 1959 Unknown [id number] 1959 Unknown [id number] 1954 Unknown [id number] 2.16.840.1.543286.3.579.2. 593 1954 Unknown [id number] 2.16.840.1.100783.3.579.2. 593 1954 Unknown [id number] 2.16.840.1.300351.3.579.2. 593 1954 Unknown [id number] 2.16.840.1.740193.3.579.2. 593 1954 Unknown [id number] 2.16.840.1.119517.3.579.2. 593 1954 Unknown [id number] 2.16.840.1.729552.3.579.2. 727 1954 Unknown [id number] 2.16.840.1.023936.3.579.2. 727 1954 Unknown [id number] 2.16.840.1.595069.3.579.2. 1259 1954 Unknown [id number] 2.16.840.1.013542.3.579.2. 1259 1954 Unknown [id number] 2.16.840.1.280362.3.579.2. 1259 1954 Unknown [id number] 2.16.840.1.322505.3.579.2. 1259 1954 Unknown [id number] 2.16.840.1.406455.3.579.2. 1259 1954 Unknown [id number] 2.16.840.1.080252.3.579.2. 1259 1954 Unknown [id number] 2.16.840.1.540285.3.579.2. 1259 Private Health Insurance [employer] [id number] Unknown [id number] 2.16.840.1.633124.3.579.2. 593 Unknown [id number] 2.16.840.1.408764.3.579.2. 593 Unknown [id number] 2.16.840.1.655635.3.579.2. 531 Social History Date Type Detail Facility Start: 09-25-2021 End: 10-24-2024 Tobacco smoking status Ex-smoker (finding) [facility] Tobacco smoking status Never [facility] Start: 04-13-2023 End: 05-08-2024 Sex Assigned At Male [facility] Start: 1955 Sex Assigned At Male [facility] Start: 04-06-1974 End: 04-06-2010 History of tobacco use Current smoker [facility] Start: 04-06-1974 End: 04-06-2010 History of tobacco use Cigarette Smoker [facility] Start: 05-05-2023 End: 05-08-2024 Cigarettes smoked current (pack per day) - Reported 1 [facility] Start: 05-05-2023 End: 10-24-2024 Tobacco use and exposure Smokeless tobacco non-user [facility] Start: 05-05-2023 End: 11-14-2024 Alcoholic beverage intake Ex-drinker (finding) [facility] Within the last year , have you been afraid of your partner or ex-partner? No [facility] Do you belong to any clubs or organizations such as yazidi groups, unions, fraternal or athletic groups, or [...] at Not on file [facility] How many standard dr inks containing alcohol do you have on a typical day? 3 or 4 [facility] How often do you hav e 6 or more drinks on 1 occasion? Weekly [facility] Do you feel stress - tense, restless, nervous, or anxious, or unable to sleep at night because your mind is troubled all the time - these days [OSQ] Only a little [facility] Functional Status Date Assessment Result Facility 02-17-2024 Functional Status N/A [facility] 02-11-2023 Functional Status N/A [facility] 05-14-2022 Functional Status N/A [facility] 11-06-2021 Functional Status N/A [facility] Clinical Notes 09-16-2021 to 11-14-2024 VIKASH Valdez - 11/14/2024 11:00 AM Rajendra Reilly MD - 11/08/2024 10:50 AM Rajendra Reilly MD - 11/08/2024 10:50 AM Rajendra Reilly MD - 11/08/2024 10:50 AM EDT Note Date & Type Note Facility 11-14-2024 History of Present illness Narrative Associated Order(s): L Inj/Asp: R knee Post-Procedure Diagnose(s): Internal derangement of right knee; Chondromalacia, patella, right Images from the original note were not included. Orthopedic Office note: NAME: Kimberlyn Wynn : 1955 (NEW PT) (DR. REILLY REFERRAL) - INCREASED LATERAL (R) KNEE MEDIAL DISCOMFORT WHILE KNEELING IN STONES SINCE ~01/2024 (10 MONTHS) ALSO NOTES (L) KNEE DISCOMFORT SINCE 11/04/24 (10 DAYS) - NKI XRAY (R) KNEE TODAY, 11/14/24 IN EPIC XRAY 03/08/2024 @[facility] IN [place]ANGE LATERAL DISCOMFORT FOLLOWING INCIDENT, ADMITS CURRENT MEDIAL DISCOMFORT - WORSE WITH ACTIVITY / CARRYING HEAVY OBJECTS. OCCASIONAL SWELLING - WORSE AT END OF DAY WITH PROLONGED AMBULATION. DENIES SWELLING. ADMITS DIFFICULTY / STIFFNESS WITH STEPS IN THE MORNINGS. N/T / NAIL IN KNEE SENSATION FOLLOWING INCIDENT. GOOD ROM - PAINFUL. DENIES WEAKNESS. ADMITS WAKING HS. DENIES BUCKLING / GRINDING. ADMITS POPPING. TRIED ICING - NO RELIEF. ADMITS ELEVATING. DENIES HEATING. TRIED CELEBREX - NO RELIEF. IBU 800MG DAILY - SOME RELIEF. TRIED ICY HOT - SOME RELIEF. ALSO NOTING CONSTANT (L) KNEE ANTERIOR DISCOMFORT FOR 10 DAYS (11/04/24) ; NKI. DENIES SWELLING. IBU DAILY / ICING PRN - WITH RELIEF. WOKE HS ON 1 OCCASION. Knee Musculoskeletal Exam Gait Gait is normal. Inspection Leg length disparity: no discrepancy Right Erythema: none Effusion: mild Edema: none Ecchymosis: none Deformity: none Alignment: normal Palpation Right Right knee palpation is unremarkable. Increased warmth: none Masses: none Crepitus: patellofemoral Tenderness: present Medial joint line: moderate Patella: moderate Range of Motion Right Right knee range of motion is normal and full. Strength Right Right knee strength is normal. Extension: 5/5. Flexion: 5/5. Instability Right Instability signs: none - stable Varus stress grade: normal Valgus stress grade: normal Anterior drawer: normal Medial Nallely test: positive (mild) Lateral Nallely test: negative Neurovascular Right Right knee neurovascular exam is normal. Pulses - PT: normal Posterior tibial: 2+ Capillary refill: warm and well-perfused Special Signs Right Right knee special signs are normal. Straight leg raise: normal Patellar compression: mild Patellar apprehension: moderate Left Straight leg raise: normal Patellar compression: mild Patellar apprehension: mild General Constitutional: appears stated age Labored breathing: no Psychiatric: normal mood and affect Neurological: alert Skin: intact Lymphadenopathy: none Orders Placed This Encounter Procedures L Inj/Asp This order was created via procedure documentation XR knee 1 or 2 views right Reason for exam:: Pain L Inj/Asp: R knee on 11/14/2024 11:37 AM Indications: pain Details: 22 G needle, anterolateral approach Medications: 40 mg methylPREDNISolone acetate 40 MG/ML; 2 mL bupivacaine PF 0.5 % Outcome: tolerated well, no immediate complications E UTILIZING ASEPTIC TECHNIQUE PT GIVEN INJECTION IN RIGHT KNEE, NEUROVASC INTACT S/P INJ, TOLERATED WELL Procedure, treatment alternatives, risks and benefits explained, specific risks discussed. Consent was given by the patient. Patient was prepped and draped in the usual sterile fashion. Results - Imaging: - X-ray shows patellofemoral arthritis but weightbearing surfaces are well preserved ICD-10-CM 1. Acute pain of right knee M25.561 XR knee 1 or 2 views right Ambulatory referral to Orthopaedic Surgery meloxicam (Mobic) 15 MG tablet 2. Chondromalacia, patella, right M22.41 meloxicam (Mobic) 15 MG tablet 3. Internal derangement of right knee M23.91 meloxicam (Mobic) 15 MG tablet Assessment & Plan Right anterior knee pain Right anterior knee pain is mostly patellofemoral, with patellofemoral arthritis noted. Weightbearing surfaces are well preserved. Diagnostic plan: If there is no improvement in 1 month, an MRI will be considered for further evaluation. A medial meniscus tear cannot be ruled out. Treatment plan: An intra-articular injection was recommended as surgery is not likely to be considered in the next several months due to the fall harvest. Light activity modification was discussed in the interim pending relief with the intra-articular injection. His use of Motrin, which is sometimes infrequent, was also discussed, and a daily anti-inflammatory was recommended. Clinical decision making: The risks and benefits of daily anti-inflammatory use were discussed, including potential gastrointestinal issues and cardiovascular risks. Lightheadedness He reported feeling somewhat lightheaded after taking Lasix. Treatment plan: He will continue to monitor his blood pressure and follow up with his family doctor. Clinical decision making: Should he develop any nausea, chest pain, discomfort, or other symptoms, he would go directly to the ER for further evaluation. Questions answered in laymen terms at the bedside. The diagnosis, home exercise plan and any ongoing restrictions/ recommendations reviewed. If unable to be reached in office, I recommend evaluation at nearest Emergency Room if any symptoms worsened or new symptoms develop for requiring urgent evaluation. Visit was preformed using [facility] speech recognition. documented in this encounter [facility] 11-08-2024 History of Present illness Narrative Associated Problem(s): Primary osteoarthritis of right knee Pain worse and refer to ortho. Use motrin 800 PRN. Associated Problem(s): Other chest pain Pain with exertion suspicious for ischemia. Check stress test. Associated Problem(s): Former smoker Quit in 2010 but prior 36 pack year history. Check LDCT chest. Associated Problem(s): Edema of both lower legs Edema controlled and use lasix PRN. Elevate legs PRN. Associated Problem(s): BPH without obstruction/lower urinary tract symptoms Symptoms controlled with medication and continue. Follow up with urology. Images from the original note were not included. Subjective Patient ID: Kimberlyn Wynn is a 69 y.o. male who presents for Follow-up (6m) and Knee Pain. Follow up OA knee, edema, and BPH. OA knee getting worse. Pain in right knee and worse after activity. Still farms and caren hay. Notice with increased lifting and carrying weight will have increased pain on inside knee. X-ray in 2023 showed mild arthritis. Occasional swelling. Tried ice and celebrex but not helping. Using motrin 800 and seems to help. Edema controlled with medication. Mild swelling at end of day and if on feet a lot. Edema improved in am and with elevation. C/o episode of chest pain. 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 Developed pain and pressure in mid chest and up towards neck. Mild SOB and felt fatigued. Had to stop activity and resolved after about 30 minutes. Concerned because dad had CAD. Last stress test about 10 years ago. BPH controlled with medication. Normal stream and not straining to start flow of urine. Not up as much during night. Able to empty all the way and not dribbling. Quit smoking in 2010 but prior 1 PPD for about 36 years. Prior LDCT chest in 2019 and not had repeat since. Review of Systems Constitutional: Negative for fatigue. [...] rebound. Musculoskeletal: Left lower leg: No edema. Neurological: Mental Status: He is alert. Assessment/Plan Problem List Items Addressed This Visit BPH without obstruction/lower urinary tract symptoms Symptoms controlled with medication and continue. Follow up with urology. Primary osteoarthritis of right knee - Primary Pain worse and refer to ortho. Use motrin 800 PRN. Relevant Medications ibuprofen 800 MG tablet Other Relevant Orders Ambulatory referral to Orthopaedic Surgery Edema of both lower legs Edema controlled and use lasix PRN. Elevate legs PRN. Relevant Orders Stress test with myocardial perfusion Other chest pain Pain with exertion suspicious for ischemia. Check stress test. Relevant Orders Stress test with myocardial perfusion Former smoker Quit in 2010 but prior 36 pack year history. Check LDCT chest. Relevant Orders CT lung screening low dose documented in this encounter [facility] 10-24-2024 History of Present illness Narrative Skin Check Location: Patient requests a skin examination from the waist up Dermatologic history: history of Actinic Keratosis, no history of skin cancer Last visit: 04/21/2024 Lesions: Location: Above right ear Duration: months Quality: itchy Modifying factors: irritated with glasses, aggravated by scratching Associated symptoms: rough Treatments: none All pertinent medical history, medications, and allergies were reviewed. General Exam: alert, oriented to person, place, and time, normal affect, well appearing A complete skin exam was offered, pt declined. Scalp, Examined , exam limited by hair Head, Face Examined patient has a mustache and goatee Neck Examined Chest Examined Back Examined Abdomen Examined Right arm Examined Left arm Examined Hands Examined Digits,nails: Examined Lymphatics: Not examined Skin Exam 1. SEBORRHEIC KERATOSIS (2) Chest (Upper Torso, Anterior), Torso - Posterior (Back) Stuck on verrucous, variably pigmented papules and plaques. Patient was counseled regarding these benign growths. Removal is normally not necessary, but they may be removed if they are symptomatic or for cosmetic reasons. 2. LENTIGINES (3) Left Shoulder - Posterior, Neck - Posterior, Right Shoulder - Posterior Scattered alvarado macules in sun-exposed areas. The patient was informed that lentigines are benign pigmented lesions that occur on sun-exposed and sun-damaged skin. No treatment is necessary. Recommended regular use of broad spectrum sunscreen SPF 30 or higher 3. MELANOCYTIC NEVUS OF TRUNK Generalized Scattered benign appearing, regular brown to light brown melanocytic papules and macules with similar morphology Counseled regarding these benign growths. Rarely, a nevus can develop into malignant melanoma, so any changing nevi should be promptly re-evaluated. 4. CAPILLARY ANGIOMA Abdomen (Lower Torso, Anterior) Scattered nolasco-red papule(s). The patient was informed that angiomas are benign growths on the the skin. No treatment is necessary. 5. SEBORRHEIC KERATOSIS, INFLAMED (4) Right Postauricular Area (2), Right Preauricular Area, Right Upper Arm - Posterior Brown stuck on verrucous scaly papules, symptomatic The patient was informed that symptomatic seborrheic keratoses are benign growths that become inflamed, itchy, tender, traumatized, caught on clothing, or bleed. Symptomatic lesions can be treated with cryotherapy or curretage. Thicker lesions treated with cryotherapy may require more than one treatment. The patient was instructed to notify the office if abnormal redness or tenderness develops at the treatment site. Cryotherapy today, see procedure note. Diagnosis: Inflamed seborrheic keratosis Indication: Inflamed Consent: Verbal consent was obtained and risks were discussed, including, but not limited to risks of scarring, darker or manager of finance pigmentary changes, recurrence, incomplete removal and infection. Method: Liquid nitrogen was used to treat the lesion(s) with two 5-10 second freeze-thaw cycles Number of lesions treated: 4 Post-procedure instructions: Instructions were given verbally. The office will be contacted if the lesion fails to resolve despite treatment, or if a side effect develops such as abnormal crusting, scabbing, redness or tenderness Cryotherapy, skin lesion - Right Postauricular Area (2), Right Preauricular Area, Right Upper Arm - Posterior 6. ACTINIC KERATOSIS (7) Mid Occipital Scalp (2), Mid Parietal Scalp (4), Right Zygomatic Area Erythematous scaly papules Patient was counseled regarding these sun-induced growths that can develop into squamous cell carcinoma if left untreated. Discussed treatment with cryotherapy. It was emphasized that any treated lesions that fail to resolve should be re-evaluated. Cryotherapy performed today; see procedure note Diagnosis: Actinic keratosis Indication: Precancerous Location: see skin exam Consent: Verbal consent was obtained and risks were discussed, including, but not limited to risks of scarring, darker or manager of finance pigmentary changes, recurrence, incomplete removal and infection. Method: Liquid nitrogen was used to treat the lesion(s) with two 5-10 second freeze-thaw cycles. Number of lesions treated: 7 Post-procedure instructions: Instructions were given verbally. The office will be contacted if the lesion fails to resolve despite treatment, or if a side effect develops such as abnormal crusting, scabbing, redness or tenderness Cryotherapy, skin lesion - Mid Occipital Scalp (2), Mid Parietal Scalp (4), Right Zygomatic Area 7. RASH AND OTHER NONSPECIFIC SKIN ERUPTION Left Lower Leg - Anterior, Right Lower Leg - Anterior Clear today, patient reports itchy pink bumps that come and go on lower legs and feet Discussed dry skin care and moisturizer handout provided. Take photo if bumps recur or call for same day/next day appt. Next Visit: 1 year documented in this encounter [facility] 05-09-2024 History of Present illness Narrative Associated Problem(s): Encounter for Medicare annual wellness exam Due for labs. Discussed proper diet and regular aerobic exercise. Need aerobic exercise 5-6 days a week for 30 minutes at a time. Smaller portions and limit total calories. Colonoscopy every 10 years. Tetanus every 10 years. Advised not to smoke. Associated Problem(s): Primary osteoarthritis of right knee Pain and swelling worse and no change with relafen. Try celebrex. Ice PRN. If worsens can refer to ortho. Associated Problem(s): Edema of both lower legs Worsening edema and start lasix PRN. Elevate legs PRN. Associated Problem(s): Class 1 obesity due to excess calories with serious comorbidity and body mass index (BMI) of 31.0 to 31.9 in adult Weight loss indicated. Images from the original note were not included. Subjective Patient ID: Kimberlyn Wynn is a 68 y.o. male who presents for Medicare Annual Wellness Visit Subsequent (Wellness/). Presents for medicare annual wellness visit. Weight down 3 pounds in past year. Not active in winter and no regular exercise. Tries to watch diet and eat healthy. Increased fruits and vegetables. Smaller portions and limits snacking. Tries to limit total daily calories. Due for labs. C/o edema in both legs but right worse than left. Swelling above sock and boots. Edema improved in am and if elevate legs. Edema worse with legs down and standing. No bulging veins in legs. Right knee pain stable. [place] well and no pain with prednisone but returned once done. X-ray with OA. Frequent popping, clicking, and grinding. Stiff and sore if sit prolonged and hard to get up from sitting. Using relafen and not helping. Review of Systems Constitutional: Negative for fatigue. [...] There is no guarding or rebound. Musculoskeletal: General: Normal range of motion. Left lower leg: No edema. Neurological: General: No focal deficit present. Mental Status: He is alert. Cranial Nerves: No cranial nerve deficit. Deep Tendon Reflexes: Reflexes normal. Assessment/Plan Problem List Items Addressed This Visit Dyslipidemia ([facility]) Relevant Orders Lipid panel Prediabetes Relevant Orders Hemoglobin A1c Encounter for Medicare annual wellness exam - Primary Due for labs. Discussed proper diet and regular aerobic exercise. Need aerobic exercise 5-6 days a week for 30 minutes at a time. Smaller portions and limit total calories. Colonoscopy every 10 years. Tetanus every 10 years. Advised not to smoke. Primary osteoarthritis of right knee Pain and swelling worse and no change with relafen. Try celebrex. Ice PRN. If worsens can refer to ortho. Relevant Medications celecoxib (CeleBREX) 200 MG capsule Encounter for long-term (current) use of medications Relevant Orders Basic metabolic panel CBC and differential Hepatic function panel Class 1 obesity due to excess calories with serious comorbidity and body mass index (BMI) of 31.0 to 31.9 in adult Weight loss indicated. Relevant Orders TSH Encounter for screening prostate specific antigen (PSA) measurement Relevant Orders PSA Edema of both lower legs Worsening edema and start lasix PRN. Elevate legs PRN. Relevant Medications furosemide (Lasix) 40 MG tablet potassium chloride CR (K-Tab) 20 MEQ ER tablet documented in this encounter [facility] 04-21-2024 History of Present illness Narrative Lesions: Location: Chest Duration: Few months Quality: denies pain, denies bleeding Associated symptoms: darkening, non-healing, red Treatments: moisturizer New patient, referred by Asim Reilly MD Location # 2: lower legs Duration: months Quality: itchy, denies pain, denies bleeding Modifying factors: admits swelling in legs Associated symptoms: red Treatments: moisturizer All pertinent medical history, medications, and allergies were reviewed. General Exam: alert, oriented to person, place, and time, normal affect, well appearing Unaccompanied A focused exam completed based on patient reported problems, see below: 1. Seborrheic keratosis Chest (Upper Torso, Anterior) Stuck on verrucous, alvarado-brown papules and plaques. Patient was counseled regarding these benign growths. Removal is normally not necessary, but they may be removed if they are symptomatic or for cosmetic reasons. 2. Seborrheic keratosis, inflamed (5) Chest - Medial (Center) (2), Left Breast (2), Right Breast Blakeslee and brown stuck on verrucous scaly papule with surrounding erythema The patient was informed that symptomatic seborrheic keratoses are benign growths that become inflamed, itchy, tender, traumatized, caught on clothing, or bleed. Symptomatic lesions can be treated with cryotherapy or curretage. Thicker lesions treated with cryotherapy may require more than one treatment. The patient was instructed to notify the office if abnormal redness or tenderness develops at the treatment site. Cryotherapy today, see procedure note. Diagnosis: Inflamed seborrheic keratosis Indication: Inflamed Consent: Verbal consent was obtained and risks were discussed, including, but not limited to risks of scarring, darker or manager of finance pigmentary changes, recurrence, incomplete removal and infection. Method: Liquid nitrogen was used to treat the lesion(s) with two 5-10 second freeze-thaw cycles Number of lesions treated: 6 Post-procedure instructions: Instructions were given orally and in writing. 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 4. Actinic keratosis (5) Mid Parietal Scalp (5) Erythematous scaly papules Patient was counseled regarding these sun-induced growths that can develop into squamous cell carcinoma if left untreated. Discussed treatment with cryotherapy. It was emphasized that any treated lesions that fail to resolve should be re-evaluated. Cryotherapy performed today; see procedure note Diagnosis: Actinic keratosis Indication: Precancerous Location: see skin exam Consent: Verbal consent was obtained and risks were discussed, including, but not limited to risks of scarring, darker or manager of finance pigmentary changes, recurrence, incomplete removal and infection. Method: Liquid nitrogen was used to treat the lesion(s) with two 5-10 second freeze-thaw cycles. Number of lesions treated: 5 Post-procedure instructions: Instructions were given orally and in writing. The office will be contacted if the lesion fails to resolve despite treatment, or if a side effect develops such as abnormal crusting, scabbing, redness or tenderness Cryotherapy, skin lesion - Mid Parietal Scalp (5) Next Visit: 6 months documented in this encounter [facility] 03-07-2024 History of Present illness Narrative Associated [...] 2 views right documented in this encounter [facility] 02-17-2024 Hospital Discharge instructions Patient Education 02/17/2024 [...] urethra. Follow these instructions at home: Take aopx-omg-ykfurwc and prescription medicines only as told by [...] provider. Document Revised: 10/09/2021 Document Reviewed: 10/09/2021 [employer] Patient Education 2023 [employer]. Follow Up Care 02/11/2023 10:20:11 With:RAYA DRAKE, Silviano Rodriguez, URL Address: [facility] [address] , [place] [address]- When: Unknown [facility] 02-17-2024 Note Patient Education Urology Benign [...] Follow these instructions at home: ??? Take jcfo-xje-njihdps and prescription medicines only as told by [...] do not get (more content not included)... [facility] 02-11-2023 Hospital Discharge instructions Patient Education [...] urethra. Follow these instructions at home: Take pgnx-rym-nndmhvm and prescription medicines only as told by [...] provider. Document Revised: 10/09/2021 Document Reviewed: 10/09/2021 [employer] Patient Education 2022 [employer]. Follow Up Care 05/14/2022 10:02:37 With:RAYA DRAKE, Silviano Rodriguez, URL Address: [facility] [address] , [place] [address]- When: Unknown [facility] 05-14-2022 Hospital Discharge instructions Patient Education [...] prostate. Follow these instructions at home: Take prus-dun-irovotu and prescription medicines only as told by [...] 03/20/2001 Document Revised: 06/05/2018 Document Reviewed: 12/11/2016 [employer] Patient Education 2020 [employer]. Follow Up Care 11/06/2021 10:32:56 With:RAYA DRAKE, Silviano Rodriguez, URL Address: [facility] [address] [place] [address]- When:6 months Comments:[facility] [place] 11-06-2021 Hospital Discharge instructions Patient Education 11/06/2021 [...] prostate. Follow these instructions at home: Take ttam-win-spldjtq and prescription medicines only as told by [...] 03/20/2001 Document Revised: 06/05/2018 Document Reviewed: 12/11/2016 [employer] Patient Education [employer]. Follow Up Care 09/25/2021 12:31:12 With:Silviano BOOKER MD, URL Address: [facility] [address], [place] [address]- [phone] When:Within 6 Month(s) [facility] 09-16-2021 Note PROCEDURE: XR CLAVIC LE RT [...] authenticated by: RYAN PETERSEN Date: 2021-09-16 16:24 [facility] Evaluation + Plan note Future Appointments Appointment Date:05/14/2022 09:15:00 AM Scheduled Provider:Silviano BOOKER MD Location:[facility] Appointment Type:URO Office Visit [facility] Evaluation + Plan note Future Appointments Appointment Date:11/12/2022 11:15:00 AM Scheduled Provider:Silviano BOOKER MD [facility] Appointment Type:URO Office Visit Diagnostic Tests PendingPSA Free & Total 05/14/22 [facility] Evaluation + Plan note Future Appointments Appointment Date:02/17/2024 09:15:00 AM Scheduled Provider:Silviano BOOKER MD Location:[facility] Appointment Type:URO Office Visit Diagnostic Tests PendingPSA Total 02/11/23 [facility] [place] Evaluation + Plan note Future Appointments Appointment Date:02/22/2025 09:15:00 AM Scheduled Provider:Silviano BOOKER MD Location:[facility] [place] Appointment Type:URO Office Visit Diagnostic Tests PendingPSA Total 02/17/24 [facility] [place] Evaluation note No assessment inform ation available [facility] Work Phone: Evaluation note Diagnosis Annual physical exam- Primary Routine general medical examination at a health care facility Vitamin D deficiency Sebaceous cyst of left axilla Chronic pain of right knee- Primary documented [facility] encounter [facility] Diagnosis Annual physical exam- Primary Routine general medical examination at a health care facility Vitamin D deficiency Sebaceous cyst of left axilla Chronic pain of right knee- Primary Seborrheic keratosis Seborrheic keratosis, inflamed Pigmented purpuric dermatosis Actinic keratosis documented in this encounter [facility]* Diagnosis Annual physical exam- Primary Routine general medical examination at a health care facility Vitamin D deficiency Sebaceous cyst of left axilla Chronic pain of right knee- Primary Encounter for Medicare annual wellness exam- Primary Dyslipidemia (CMS/HCC) Other and unspecified hyperlipidemia Prediabetes Other abnormal glucose Encounter for long-term (current) use of medications Encounter for long-term (current) use of other medications Class 1 obesity due to excess calories with serious comorbidity and body mass index (BMI) of 31.0 to 31.9 in adult Encounter for screening prostate specific antigen (PSA) measurement Edema of both lower legs Primary osteoarthritis of right knee documented in this encounter [facility]* Diagnosis Annual physical exam- Primary Routine general medical examination at a health care facility Vitamin D deficiency Sebaceous cyst of left axilla Chronic pain of right knee- Primary Encounter for Medicare annual wellness exam- Primary Dyslipidemia Other and unspecified hyperlipidemia Prediabetes Other abnormal glucose Encounter for long-term (current) use of medications Encounter for long-term (current) use of other medications Class 1 obesity due to excess calories with serious comorbidity and body mass index (BMI) of 31.0 to 31.9 in adult Encounter for screening prostate specific antigen (PSA) measurement Edema of both lower legs Primary osteoarthritis of right knee Seborrheic keratosis Lentigines Melanocytic nevus of trunk Benign neoplasm of skin of trunk, except scrotum Capillary angioma Nevus, non-neoplastic Seborrheic keratosis, inflamed Actinic keratosis Rash and other nonspecific skin eruption documented in this encounter [facility]* Diagnosis Annual physical exam- Primary Routine general medical examination at a health care facility Vitamin D deficiency Sebaceous cyst of left axilla Chronic pain of right knee- Primary Encounter for Medicare annual wellness exam- Primary Dyslipidemia Other and unspecified hyperlipidemia Prediabetes Other abnormal glucose Encounter for long-term (current) use of medications Encounter for long-term (current) use of other medications Class 1 obesity due to excess calories with serious comorbidity and body mass index (BMI) of 31.0 to 31.9 in adult Encounter for screening prostate specific antigen (PSA) measurement Edema of both lower legs Primary osteoarthritis of right knee Primary osteoarthritis of right knee- Primary Other chest pain Edema of both lower legs BPH without obstruction/lower urinary tract symptoms Former smoker Personal history of tobacco use, presenting hazards to health documented in this encounter [facility]* Diagnosis Annual physical exam- Primary Routine general medical examination at a [facility] facility Vitamin D deficiency Sebaceous cyst of left axilla Chronic pain of right knee- Primary Encounter for Medicare annual wellness exam- Primary Dyslipidemia Other and unspecified hyperlipidemia Prediabetes Other abnormal glucose Encounter for long-term (current) use of medications Encounter for long-term (current) use of other medications Class 1 obesity due to excess calories with serious comorbidity and body mass index (BMI) of 31.0 to 31.9 in adult Encounter for screening prostate specific antigen (PSA) measurement Edema of both lower legs Primary osteoarthritis of right knee Primary osteoarthritis of right knee- Primary Other chest pain Edema of both lower legs BPH without obstruction/lower urinary tract symptoms Former smoker Personal history of tobacco use, presenting hazards to health Acute pain of right knee- Primary Chondromalacia, patella, right Internal derangement of right knee documented in this encounter [facility] Narrative No data available for this section [facility] Progress note No data available for this section [facility] Summary Purpose Family History No Family History Records Found No data available for this section No Family History Records Found No data available for this section No Family History Records FoundNo Family History Records Found Advance Directives No Advanced Directives Records Found Advance Directive Response Recorded Date/ Time Advance [...] 21, 2023 End: May 21, 2023 Teo Mayo DO Attending Provider Active Start : May 21, 2023 End: May 21, 2023 Team Status: Inactive Member Role Status Dates Alexander James II MD Primary Care Provider Active Start: July 14, 2023 End: July 14, 2023 Cori Restrepo APRN Attending Provider Active Start: July 14, 2023 End: July 14, 2023 Director Of Dance Relationship Specialty Start Date End Date Asim Reilly MD [address] [place] [phone] PCP - General Family Medicine 05/04/23 Asim Reilly MD [address] [place] [phone] PCP - Devoted 08/05/23 Director Of Dance Relationship Specialty Start Date End Date Asim Reilly MD [address] [place] [phone] PCP - General Family Medicine 05/04/23 Asim Reilly MD [address] [place] [phone] PCP - Devoted 08/05/23 Director Of Dance Relationship Specialty Start Date End Date Asim Reilly MD [address] [place] [phone] PCP - General Family Medicine 05/04/23 Asim Reilly MD [address] [place] [phone] PCP - Devoted 08/05/23 Director Of Dance Relationship Specialty Start Date End Date Asim Reilly MD [address] [place] [phone] PCP - General Family Medicine 05/04/23 Asim Reilly MD [address] [place] [phone] PCP - Devoted 08/05/23 Director Of Dance Relationship Specialty Start Date End Date Asim Reilly MD [address] [place] [phone] PCP - General Family Medicine 05/04/23 Asim Reilly MD [address] [place] [phone] PCP - Devoted 08/05/23 Director Of Dance Relationship Specialty Start Date End Date Asim Reilly MD [address] [place] [phone] PCP - General Family Medicine 05/04/23 Asim Reilly MD [address] [place] [phone] PCP - Devoted 08/05/23 Director Of Dance Relationship Specialty Start Date End Date Asim Reilly MD [address] [place] [phone] PCP - General Family Medicine 05/04/23 Asim Reilly MD [address] [place] [id number] PCP - Devoted 08/05/23 Director Of Dance Relationship Specialty Start Date End Date Asim Reilly MD [address] [place] [phone] PCP - General Family Medicine 05/04/23 Asim Reilly MD [address] [place] [phone] PCP - Devoted 08/05/23 Director Of Dance Relationship Specialty Start Date End Date Asim Reilly MD [address] [place] [phone] PCP - General Family Medicine 05/04/23 Asim Reilly MD [address] [place] [phone] PCP - Devoted 08/05/23 (unrecognized sect ion and content) No Status Records FoundNo Status Records FoundNo Status Records FoundNo Status Records Found INFORMATION SOURCE (unrecogn ized section and content) DATE CREATED AUTHOR 05/31/2022 [facility] DATE CREATED AUTHOR AUTHOR'S ORGANIZ ATION 06/05/2023 [facility] DATE CREATED AUTHOR AUTHOR'S ORGANIZ ATION 02/18/2024 Anselmo [place] [facility] DATE CREATED AUTHOR AUTHOR'S ORGANIZ ATION 11/19/2024 [facility] EPIC Goals (unrecognized section and content) Goals may be documented in a n alternate section Reason for Visit (unrecogniz ed section and content) Reason Comments Knee Pain Right knee pain Reason Comments Suspicious Skin Lesion Reason Comments Medicare Annual Wellness Visit Subsequen t Wellness Reason Comments Skin Check Reason Comments Follow-up 6m Knee Pain Reason Comments Pain Specialty Diagnoses / Procedures Referred By Contac t Referred To Contact Orthopaedic Surgery Diagnoses Primary osteoarthritis of right knee Asim Reilly MD [address] [place] [address] Phone: tel: fax: Jr. Beau Griffin, DO [address] [facility] [address] [place] [address] Phone: tel: fax: Referral ID Status Reason Start Date Expiration Date V isits Requested Visits Authorized [id number] Closed Specialty Services Required 11/08/2024 05/07/2025 1 1 FOR RECORDS PERTAINING TO PATIENTS WHO ARE [...] BE BASED ON THE PRIMARY CLINICAL RECORDS. [employer] provides no warranty or guarantee of the accuracy or completeness of information in this document.
--- NOTE | 2024-11-25 09:36 | PC.NURSE ---
Nursing Note Cardiac Stress Test Reviewed: Medication, allergies and patient history reviewed. Stress Test: [x ] Patient tolerated stress test well. [ ] Patient unable to tolerate walking on treadmill. Switched to Lexiscan stress test. [x ] No chest pain noted per patient [ ] Chest pain that resolved prior to leaving stress lab. [ x] No dyspnea noted. [ ] Dyspnea that resolved prior to leaving stress lab. [x ] Patient left stress lab asymptomatic and hemodynamically stable. [ ] Patient taken to the Emergency Room due to non-resolving symptoms following stress test. [ ] Patient achieved target heart rate. [ ] Patient unable to achieve target heart rate. [ ] Aminophylline administered as reversal agent to Lexiscan (Regadenoson). [ ] Nitro administered. Nursing Comments:Pt had Lexiscan test done. No symptoms. Pt ambulated to cafeteria for breakfast prior to second set of images.
[2024-11-25] MEDS: REGADENOSON 0.4 MG/5 ML SYRINGE IV (09:40)
--- NOTE | 2024-11-28 10:40 | PM.STRESS ---
Stress Test Stress Test Requesting physician: Asim Blanco Procedure: Lexiscan pharmacological stress test General Information: Reason for Stress Test: [Chest pain] Cardiac History and Risk Factors: [Dyslipidemia] Resting 12 - Lead Electrocardiogram: Normal sinus rhythm Poor R wave progression, cannot rule our anterior infarct age indeterminate Abnormal ECG Stress Test: Protocol: [Lexiscan stress test] Exercise Capacity: [N/A] Blood Pressure Response: [N/A] Rhythm: [Sinus] ST - Response: [No ST T wave changes] Patient Response: [No symptoms] Interpretation: 1. No ischemic ST T wave changes on Lexiscan stress test 2. Nuclear images are to be read, interpreted and reported seperately
== END 2024-11-25 07:21 | disposition home or self-care (01) ==
LOC: NM 07:20
PROVIDERS: PCP Family Medicine; Visit Provider Family Medicine
DX: R07.89 Other chest pain (principal); Z87.891 Personal history of nicotine dependence; E78.5 Hyperlipidemia, unspecified
CPT/HCPCS: 78452; 93017; A9500; J2785

== ENCOUNTER 2025-01-31 10:13 | Outpatient (OUT) | payer OTHER, SELFPAY ==
--- OUTSIDE RECORDS SUMMARY | 2025-01-31 10:16 | XMS_ITS | Clinical Summary ---
Author Organization [facility] Address [address] [place] [address] Care Team Providers Care System Support Analyst Name Role Phone Asim Reilly MD Unavailable Asim Reilly MD Primary Care Provider [phone] Allergies No known active allergies Medications MedicationSigDispense QuantityRefillsLast FilledStart DateEnd DateStatus loratadine (Claritin) 10 MG tablet Take 1 tablet by mouth DailyActive simvastatin (Zocor) 40 MG tablet Indications:DyslipidemiaTake 1 tablet (40 mg) by mouth 1 (one) time each day at the same time 100 tablet 3064Active alfuzosin ER (Uroxatral) 10 MG 24 hr tablet Indications:BPH without obstruction/lower urinary tract symptomsTAKE 1 TABLET BY MOUTH EVERY DAY 90 tablet 3104Active furosemide (Lasix) 40 MG tablet Indications:Edema of both lower legsTake 1 tablet (40 mg) by mouth Daily as needed (Edema) 30 tablet 5Active potassium chloride CR (K-Tab) 20 MEQ ER tablet Indications:Edema of both lower legsTAKE 1 TABLET BY MOUTH ONCE A DAY *DO NOT CRUSH/CHEW/SPLIT* 90 tablet 5Active ibuprofen 800 MG tablet Indications:Primary osteoarthritis of right kneeTake 1 tablet (800 mg) by mouth 3 (three) times a day as needed for mild pain 90 tablet 3085Active meloxicam (Mobic) 15 MG tablet Indications:Acute pain of right knee,Chondromalacia, patella, right,Internal derangement of right kneeTAKE 1 TABLET BY MOUTH ONCE A DAY WITH FOOD 30 tablet 1105Active meloxicam (Mobic) 15 MG tablet Indications:Acute pain of right knee,Chondromalacia, patella, right,Internal derangement of right kneeTake 1 tablet (15 mg) by mouth Daily Take with food 30 tablet Discontinued Active Problems ProblemNoted DateDiagnosed DateOther chest pain11/08/2024 Assessment & Plan (11/08/2024 10:50 AM EDT): Pain with exertion suspicious for ischemia. Check stress test. Former iicvjv1011/08/2024 Assessment & Plan (11/08/2024 10:50 AM EDT): Quit in 2010 but prior 36 pack year history. Check LDCT chest. Encounter for long-term (current) use of vnukzfvdand34/03/2025lass 1 obesity due to excess calories with serious comorbidity and body mass index (BMI) of 31.0 to 31.9 in adult05/09/2024 Assessment & Plan (05/09/2024 11:10 AM EST): Weight loss indicated. Encounter for screening prostate specific antigen (PSA) bxcdbcjqizs71/03/2025 Edema of both lower legs05/09/2024 Assessment & Plan (11/08/2024 10:50 AM EDT): Edema controlled and use lasix PRN. Elevate legs PRN. Assessment & Plan (05/09/2024 11:10 AM EST): Worsening edema and start lasix PRN. Elevate legs PRN. Primary osteoarthritis of right knee03/07/2024 Assessment & Plan (11/08/2024 10:50 AM EDT): Pain worse and refer to ortho. Use motrin 800 PRN. Assessment & Plan (05/09/2024 11:11 AM EST): Pain and swelling worse and no change with relafen. Try celebrex. Ice PRN. If worsens can refer to ortho. Assessment & Plan (03/07/2024 10:18 AM EST): Increased pain and likely OA. Check x-ray. Treat with prednisone. Use relafen for pain and ice PRN.If no improvement can refer to ortho. Rhinitis, uuyltrsh68/09/2738Ppcxfvfqospc01/09/2024Gastroesophageal reflux disease without xwhuplrucio60/09/2024Vitamin D eajoqutkll55/09/2024rediabetes 04/14/2023Encounter for Medicare annual wellness exam04/14/2023 Assessment & Plan (05/09/2024 11:11 AM EST): Due for labs. Discussed proper diet and regular aerobic exercise. Need aerobic exercise 5-6 days a week for 30 minutes at a time. Smaller portions and limit total calories. Colonoscopy every 10 years. Tetanus every 10 years. Advised not to smoke. Assessment & Plan (04/14/2023 11:03 AM EST): Due for labs. Discussed proper diet and regular aerobic exercise. Need aerobic exercise 5-6 days a week for 30 minutes at a time. Smaller portions and limit total calories. Colonoscopy every 10 years. Tetanus every 10 years. Advised not to smoke. Discussed daily Aspirin therapy. BPH without obstruction/lower urinary tract knhzfjbu36/09/2024 Assessment & Plan (11/08/2024 10:49 AM EDT): Symptoms controlled with medication and continue. Follow up with urology. Sebaceous cyst of left oorqnv6204/14/2023 Assessment & Plan (04/14/2023 11:03 AM EST): Cyst increased in size and refer to surgeon for possible excision. Resolved Problems ProblemNoted DateDiagnosed DateResolved DateElevated PSA Clavicle painhronic gout of multiple sites04/14/2023 04/14/2023 Encounters DateTypeDepartmentCare VhugBjvhfqqpqwf89/08/2025Results Follow-Up [facility] [address] [address] Mikie Kaplan PA MR knee right wo IV vlkygmgy05/08/2025Refill [facility] [address] [place] [phone] Mikie Kaplan PA Acute pain of right knee; Chondromalacia, patella, right; Internal derangement of right knee01/10/2025 8:00 AM EDTAncillary Procedure [facility] [address] [place] [phone] 01/10/20251382Cnfger22/08/2025 10:30 AM EDTOffice Visit [facility] [address] [place] [phone] Mikie Kaplan PA Acute pain of right knee (Primary Dx); Internal derangement of right knee; Chondromalacia, patella, right12/12/2024amboo flowsheet [facility] [address] [place] [phone] Mikie Kaplan PA 12/12/20245304Fkmulh75/25/2025Results Follow-Up [facility] [address] [facility] [place] [address] Asim Reilly MD NM DIGNA PERF SPECT REST STR11/28/2024Results Follow-Up [facility] [address] [place] [address] Asim Reilly MD Stress test with myocardial xzqhhebsr02/22/2025linisync Result Encounter [facility] Unsolicited Asim Reilly MD 11/17/2024Telephone [facility] [address] [place] [address] Asim Reilly MD 11/14/2024 11:00 AM EDTOffice Visit [facility] [address] [place] [phone] Mikie Kaplan PA Acute pain of right knee (Primary Dx); Chondromalacia, patella, right; Internal derangement of right knee11/14/2024 10:50 AM EDTAncillary Procedure [facility] [address] [place] [address] 11/14/20248821Xwdisr03/11/2025Telephone [facility] [address] [place] [address] Asim Reilly MD 11/08/2024 10:00 AM EDTOffice Visit [facility] [address] [facility] [address] Asim Reilly MD Primary osteoarthritis of right knee (Primary Dx); Other chest pain; Edema of both lower legs; BPH without obstruction/lower urinary tract symptoms; Former tabtnf7311/08/2024Orders Only [facility] [address] [facility] [place] [address] Asim Reilly MD 11/08/2024amboo flowsheet [facility] [address] [facility] [place] [address] Asim Reilly MD from Last 3 Months Family History Medical HistoryRelationNameCommentsHeart diseaseFatherFleet DillonRelationName StatusCommentsFatherFleet DillonDeceasedMotherDeceased Social History Tobacco UseTypesPacks/DayYears UsedDateSmoking Tobacco: VcqgwpDfagxrkjbt778 04/06/1974 - 04/06/2010Smokeless Tobacco: Never Tobacco Cessation:Counseling Given: Not Answered Alcohol UseStandard Drinks/WeekCommentsNot Pjpytsyum69 (1 standard drink = 0.6 oz pure alcohol)caffeine: ydzoqcP8755 Health LiteracyAnswerDate RecordedHow often do you need to have someone help you when you read instructions, pamphlets, or other written material from your doctor or pharmacy?Never 05/08/2024Humiliation, Afraid, Rape, and Kick questionnaireAnswerDate Recorded Within the last year, have you been afraid of your partner or ex-partner?No 04/13/2023Within the last year, have you been humiliated or emotionally abused in other ways by your partner or ex-partner?No04/13/2023Within the last year, have you been kicked, hit, slapped, or otherwise physically hurt by your partner or ex-partner?No04/13/2023Within the last year, have you been raped or forced to have any kind of sexual activity by your partner or ex-partner?No04/13/2023 Social Connection and Isolation PanelAnswerDate RecordedIn a typical week, how many times do you talk on the phone with family, friends, or neighbors?Once a week05/08/2024How often do you get together with friends or relatives?Once a week05/08/2024How often do you attend rastafari or church services?1 to 4 times per year05/08/2024Do you belong to any clubs or organizations such as rastafari groups, unions, fraternal or athletic groups, or school groups?Yes05/08/2024How often do you attend meetings of the clubs or organizations you belong to?Never 05/08/2024re you , , , , never , or living with a partner?Doaqeyq0705/08/2024UDIT-CAnswerDate RecordedQ1: How often do you have a drink containing alcohol?4 or more times a week05/08/2024Q2: How many drinks containing alcohol do you have on a typical day when you are drinking?3 or Q3: How often do you have six or more drinks on one occasion?Vozffs9505/08/2024Overall Financial Resource Strain (CARDIA)AnswerDate RecordedHow hard is it for you to pay for the very basics like food, housing, medical care, and heating?Not hard at all05/08/2024PHQ-2AnswerDate Recorded Patient Health Questionnaire-2 Kaikf363[facility] [place] [facility] - Occupational Stress QuestionnaireAnswerDate RecordedDo you feel stress - tense, restless, nervous, or anxious, or unable to sleep at night because your mind is troubled all the time - these days?Only a bjdvfp3805/08/2024Exercise Vital SignAnswerDate RecordedOn average, how many days per week do you engage in moderate to strenuous exercise (like a brisk walk)?5 days05/08/2024On average, how many minutes do you engage in exercise at this level?120 min05/08/2024Hunger Vital SignAnswerDate RecordedWithin the past 12 months, you worried that your food would run out before you got the money to buymore.Never true05/08/2024 Within the past 12 months, the food you bought just didn't last and you didn't have money to get more.Never true05/08/2024PRAPARE - TransportationAnswerDate RecordedIn the past 12 months, has lack of transportation kept you from medical appointments or from getting medications?No05/08/2024In the past 12 months, has lack of transportation kept you from meetings, work, or from getting things needed for daily living?No05/08/2024Housing Stability Vital SignAnswerDate RecordedIn the last 12 months, was there a time when you were not able to pay the mortgage or rent on time?No04/13/2023Number of Places Lived in the Last Year Not on file04/13/2023In the last 12 months, was there a time when you did not have a steady place to sleep or slept in [place] (including now)?No04/13/2023 Housing Stability Vital SignAnswerDate RecordedIn the last 12 months, was there a time when you were not able to pay the mortgage or rent on time?No05/08/2024 Number of Times Moved in the Last YearNot on file05/08/2024t any time in the past 12 months, were you homeless or living in a retirement (including now)?No 05/08/2024Sex and Gender InformationValueDate RecordedSex Assigned at BirthNot on fileLegal LjuRrav7006/18/2022 7:17 PM EDTGender IdentityNot on fileSexual OrientationNot on file Last Filed Vital Signs Vital SignReadingTime TakenCommentsBlood Lhtczjzg219/7208 10:04 AM EDT Jizns9324 10:04 AM HXMVuoihhuiyqg09.4 ??C (97.5 ??F)11/08/2024 10:04 AM EDTRespiratory Rzqp787411/08/2024 10:04 AM EDTOxygen Xkqmjgijwu02%11/08/2024 10:04 AM EDTInhaled Oxygen Concentration--Pmegyp56.3 kg (208 lb)11/08/2024 10:04 AM DRUOisxdu439.8 cm (5' 10 )11/08/2024 10:04 AM EDTBody Mass Index29.8411/08/2024 10:04 AM EDT Plan of Treatment DateTypeDepartmentCare Team (Latest Contact Info)Tymtpqsnmjs52/19/2025 9:45 AM ESTOffice Visit [facility] [address] [place] [address] Jr. Beau Griffin, DO [address] [place] [address] 10/24/2025 9:35 AM EDTOffice Visit [facility] [address] [place] [address] Mary Farrar, FORENSIC ANTHROPOLOGIST-BUILDING OPERATOR [address] [place] [address] Health MaintenanceDue DateLast DoneCommentsCT Mdfdselahdnf14/27/1955FIT-DNA 1955FIT1955FOBT1955 8958Ioxzyvtawjetc57/27/1955Pneumococcal Vaccine: 65+ Years (1 of 1 - PCV)2004Influenza Vaccine (#1)2024 Medicare Annual Wellness (AWV), 04/14/2023Lung Cancer Screening Shared Decision Jcdekx3511/08/2025Postponed from 1955 (Other Medical Reasons)Msunmbfpynz03Colorectal Cancer Screening 05/26/2026 Procedures Procedure NamePriorityDate/TimeAssociated DiagnosisCommentsMR KNEE RIGHT WO IV ZPKLTSQGMrdhotf21/07/2025 8:38 AM EDT Internal derangement of right knee STRESS TEST WITH MYOCARDIAL TPDPWBPAULkvrrlj37/25/2025 11:20 AM EDT Other chest pain Former smoker Dyslipidemia NM DIGNA PERF SPECT REST STR11/25/2024 5:28 PM EDT [place] ARTHROCENTESIS ASPIR&/INJ MAJOR JT/BURSA W/O ZQAicbcnl41/11/2025 11:37 AM EDT Chondromalacia, patella, right Internal derangement of right knee XR KNEE 1-2 VIEWS SDHOWZthtulk10/11/2025 10:48 AM EDT Acute pain of right knee SCANNED TCWDRctasna65/05/2025 11:31 AM CSFQQTAUWVAEJUPgfdcen71/20/2017 12:00 PM EST from Last 3 Months or Most Recently Relevant to Health Maintenance Results * MR knee right wo IV contrast (01/10/2025 8:38 AM EDT)Anatomical Region LateralityModalityLower Extremities, KneeRightMagnetic ResonanceSpecimen (Source)Anatomical Location / LateralityCollection Method / VolumeCollection TimeReceived Time01/11/2025 10:46 AM EDT Impressions 01/11/2025 10:52 AM EDT Complex tear of the medial meniscus. ELECTRONICALLY SIGNED BY: DO Jon Linares 01/11/2025 10:52 AM EDT Exam: MR KNEE RIGHT WO IV CONTRAST History: Knee pain Technique: Multiplanar multisequence MRI of the knee was performed without contrast. Comparison: Radiographs November 14, 2024 Findings: Quadriceps and patellar tendons are intact. No ??joint effusion. Anterior and posterior cruciate ligaments are intact. The medial collateral ligament, lateral collateral ligament, and popliteus are intact. Complex tear of the body through posterior horn of the medial meniscus including flap tear component of the body with displaced meniscus flap located inferiorly along the periphery of the medial tibial plateau. Tiny focus of bone marrow edema of the medial tibial plateau subjacent to the body of the medial meniscus is likely reactive. Signal within the body through posterior horn of the lateral meniscus does not definitively reach an articular surface and is most compatible with meniscus degeneration. There are a few tiny partial-thickness cartilage defects of the weightbearing medial femoral condyle. Popliteal fossa structures are intact. Tiny Storey's cyst. Procedure Note Ap Solis DO - 01/11/2025 Exam: MR KNEE RIGHT WO IV CONTRAST History: Knee pain Technique: Multiplanar multisequence MRI of the knee was performed without contrast. Comparison: Radiographs November 14, 2024 Findings: Quadriceps and patellar tendons are intact. No joint effusion. Anterior and posterior cruciate ligaments are intact. The medial collateral ligament, lateral collateral ligament, and popliteusare intact. Complex tear of the body through posterior horn of the medial meniscusincluding flap tear component of the body with displaced meniscus flaplocated inferiorly along the periphery of the medial tibial plateau. Tinyfocus of bone marrow edema of the medial tibial plateau subjacent to thebody of the medial meniscus is likely reactive. Signal within the bodythrough posterior horn of the lateral meniscus does not definitively reachan articular surface and is most compatible with meniscus degeneration. There are a few tiny partial-thickness cartilage defects of theweightbearing medial femoral condyle. Popliteal fossa structures are intact. Tiny Storey's cyst. IMPRESSION: Complex tear of the medial meniscus. ELECTRONICALLY SIGNED BY: Ap Solis DO Authorizing ProviderResult TypeResult StatusMamary jo Kaplan [facility] MRI PROCEDURES Final Result * Stress test with myocardial perfusion (11/28/2024 11:20 AM EDT) Narrative Authorizing ProviderResult TypeResult Status[facility] STRESS PROCEDURES Final ResultPerforming OrganizationAddressCity/State/ZIP CodePhone Number [facility] [address] [place] [address], * NM DIGNA PERF SPECT REST STR (11/25/2024 5:28 PM EDT)Anatomical RegionLaterality ModalityOtherSpecimen (Source)Anatomical Location / LateralityCollection Method / VolumeCollection TimeReceived Time11/25/2024 5:28 PM EDT Narrative 11/25/2024 5:28 PM EDT [facility] ?[address] ? [place] [address] ?Nuclear Medicine Report ? Signed ? Patient: KINGSLEY,KIMBERLYN K ?MR#: [id number] ?? : 1955 ?Acct:[id number] ?? Age/Sex: 69 / M ?ADM Date: 11/25/ ?? Loc: NM ? Attending Dr: Asim Reilly M.D. ? Ordering Physician: Asim Reilly M.D. ?? Date of Service: 11/25/24 ?? Procedure(s): NM digna perf SPECT rest ?? str ?? Accession Number(s): [id number] ? cc: Asim Reilly M.D. ? Patient Name: ? KIMBERLYN WYNN ? MR#: [id number] ? : 1955 ? Exam Date: 11/25/2024 ?? Ordering Doctor: DR ASIM REILLY . ? RADIOLOGY REPORT ? PROCEDURE: ? NM DIGNA PERF SPECT REST ?? STR ? COMPARISON: ? None. ? INDICATIONS: ? CHEST PAIN ? TECHNIQUE: ? Exam Description: ? Stress/Rest one day protocol gated SPECT ?? Rest Imaging: ?9.8 mCi Tc-99m Cardiolite IV on 11/25/2024 ?? Stress Imaging ? 31.5 mCi Tc-99m Cardiolite IV on 11/25/2024 ?? Exercise Protocol: ? 0.4 mg Lexiscan given IV ? Heart Rate (bpm): ? Rest: 59 ? Max: 82 ?PMHR: 54 ?? Blood Pressure: ? Rest: 157/81 ?Max: 163/79 ?? Symptoms: ? Rest and peak stress ECG findings were pending, and the exercise portion of ?? the study was pending per attending physician [facility]. For more details, please ?? see separate cardiac stress test report. ?? FINDINGS: ? QUALITY OF STUDY: ? Good ?? PERFUSION DEFECT: ?LOCATION: ? N/A ?SIZE: ? N/A ?SEVERITY: ?N/A ?TYPE: ?N/A ?? WALL MOTION: ? Normal wall motion ?? LV SIZE: ? 107 mL. ?? TID / TCD: ? 1.0 ?? LVEF: ? Calculated EF 60%. ? SUMMARY: ? Myocardial perfusion imaging study is normal ? CONCLUSION: ? 1. Myocardial perfusion is normal ?? 2. Global left ventricular systolic function is normal ?? 3. No evidence of significant transient ischemic dilatation ? Dictated by: Opal Zee M.D. on 11/25/2024 at 17:26 ? Approved by: Opal Zee M.D. on 11/25/2024 at 17:28 ? Dictated By: ?Opal Zee M.D. ? Signed By: ?11/25/24 1728 ? DD/ 1728 ? TD/TT: ? Study Lead: Procedure Note Radiology, Radiologist, MD - 11/25/2024 [place] [id number] Nuclear Medicine Report Signed Patient: KIMBERLYN WYNN KMR#: [id number] : 5Acct:[id number] Age/Sex: 69 / MADM Date: 11/25/24 Loc: [place] Attending Dr: Asim Reilly M.D. Ordering Physician: Asim Reilly M.D. Date of Service: 11/25/24 Procedure(s): NM digna perf SPECT rest str Accession Number(s): [id number] cc: Asim Reilly M.D. Patient Name: KIMBERLYN WYNN MR#: [id number] : 1955 Exam Date: 11/25/2024 Ordering Doctor: DR ASIM Hoskins RADIOLOGY REPORT PROCEDURE: NM DIGNA PERF SPECT REST STR COMPARISON: None. INDICATIONS: CHEST PAIN TECHNIQUE: Exam Description: Stress/Rest one day protocol gated SPECT Rest Imagin.8 mCi Tc-99m Cardiolite IV on 11/25/2024 Stress Imaging 31.5 mCi Tc-99m Cardiolite IV on 11/25/2024 Exercise Protocol: 0.4 mg Lexiscan given IV Heart Rate (bpm): Rest: 59 Max: 82 PMHR: 54 Blood Pressure: Rest: 157/81 Max: 163/79 Symptoms: Rest and peak stress ECG findings were pending, and the exercise portionof the study was pending per attending physician [facility]. For more details,please see separate cardiac stress test report. FINDINGS: QUALITY OF STUDY: Good PERFUSION DEFECT: LOCATION: N/A SIZE: N/A SEVERITY: N/A TYPE: N/A WALL MOTION: Normal wall motion LV SIZE: 107 mL. TID / TCD: 1.0 LVEF: Calculated EF 60%. SUMMARY: Myocardial perfusion imaging study is normal CONCLUSION: 1. Myocardial perfusion is normal 2. Global left ventricular systolic function is normal 3. No evidence of significant transient ischemic dilatation Dictated by: Opal Zee M.D. on 11/25/2024 at 17:26 Approved by: Opal Zee M.D. on 11/25/2024 at 17:28 Dictated By: Opal Zee M.D. Signed By:11/25/241727 DD/ 27 TD/TT: Study Lead: Authorizing ProviderResult TypeResult Status[facility] Final Result * [place] ARTHROCENTESIS ASPIR&/INJ MAJOR JT/BURSA W/O US (11/14/2024 11:37 AM EDT) Narrative Mikie Kaplan PA - 11/14/2024 11:37 AM EDT VIKASH Valdez 11/14/2024 12:53 PM L Inj/Asp: R knee [...] and draped in the usual sterile fashion. Authorizing ProviderResult TypeResult Anai Kaplan PAIN CLINIC/BEDSIDE ORDERABLESFinal Result * XR knee 1 or 2 views right (11/14/2024 10:48 AM EDT)Anatomical Region LateralityModalityLower Extremities, KneeRightRadiographic ImagingSpecimen (Source)Anatomical Location / LateralityCollection Method / VolumeCollection TimeReceived Time Narrative 11/14/2024 12:53 PM EDT Imaging Result: AP and Lateral weight bearing: Bones: The bony structures of the knee, including the distal femur, proximal tibia, and patella, appear normal. Stable alignment. ?There are no fractures, dislocations, or bony lesions noted. Joint Spaces: The joint spaces are well-maintained bilaterally with minimal narrowing medially. Pt has advanced patella femoral arthritic changes mostly noted to articular surface of patella. Soft Tissues: The surrounding soft tissues appear normal. There is no evidence of soft tissue swelling, with mild joint effusion present. Impression: ? Normal weight-bearing knee X-ray. No acute bony ??process with patella femoral arthritis Authorizing ProviderResult TypeResult StatusMattjessica Kaplan PAIMG XR PROCEDURES Final Result * SCANNED LABS (11/08/2024 11:31 AM EDT) Narrative Authorizing ProviderResult TypeResult StatusAsim ALEXANDER CHG PERFORMABLES Final Result * Colonoscopy (05/26/2016 12:00 PM EST)Anatomical RegionLateralityModality EndoscopySpecimen (Source)Anatomical Location / LateralityCollection Method / VolumeCollection TimeReceived Time05/26/2016 12:00 PM EST Narrative 05/26/2016 12:00 PM EST PERFORMED AT [facility] LOCATION:[id number] polyp-tubular adenoma (repeat 2021) Procedure Note CONVERSION, GENERIC - 08/21/2022 PERFORMED AT [facility] LOCATION:[id number] polyp-tubular adenoma (repeat 2021) Authorizing ProviderResult TypeResult StatusRonald FrairechisonENDOSCOPY PROCEDURE ORDERABLESFinal Result from Last 3 Months or Most Recently Relevant to Health Maintenance Insurance Care Teams Team MemberRelationshipSpecialtyStart DateEnd Date Asim Reilly MD [address] [place] [address] PCP - [facility]08/05/23 Asim Reilly MD [address] [place] [address] PCP - [facility]12/12/24
--- NOTE | 2025-01-31 10:42 | CT_ITS ---
The [address] [address] Patient Name: KIMBERLYN WYNN MRN: [id number] date: 1955 Sex: M Assigned Patient Location: CT Current Patient Location: CT Accession/Order Number: [id number] Exam Date: 01/31/2025 10:35 Report Date: 01/31/2025 11:17 At the request of: JOAQUÍN REILLY MD Procedure: CT lung screening low-dose LOW-DOSE SCREENING CHEST CT WITHOUT CONTRAST COMPARISON: 05/27/2019 CLINICAL DATA: Former smoker with over 20 pack year history Spiral axial unenhanced low-dose images were obtained through the chest. Images were reviewed using both narrow and wide window settings. This CT exam was performed using one or more following dose reduction techniques: Automated exposure control, adjustment of the mA and/or kV according to patient size, or use of iterative reconstruction technique. The heart is normal size. No pericardial effusion is present. Coronary artery disease is seen. No aortic aneurysm is identified. There is atherosclerotic plaque at the aortic arch and descending aorta. There are small nonpathologic mediastinal lymph nodes. Minor gynecomastia is seen. Mild degenerative changes are visualized at the spine. There is minor apical scarring. There is a new small focus of scarring or atelectasis at the anterior right middle lobe. There is no additional consolidation, pleural effusion or pneumothorax. There are multiple scattered calcified granulomas on the right. There is also a 3 mm noncalcified right upper lobe nodule on axial image 171 which was also present on the prior. No new nodules are seen. Limited cuts through the upper abdomen show no contributory findings. CT/CT lung screening low-dose IMPRESSION: MILD SCARRING AND POSSIBLE ATELECTASIS. CONTINUED NODULARITY, PREDOMINANTLY CALCIFIED GRANULOMAS. NO ACUTE FINDINGS. Lung RADS category 2 - benign Twelve-month low-dose CT follow-up suggested Impression dictated by: Sita Barnes M.D. 01/31/2025 11:17 AM Dictation Location: [place] [address] Electronically authenticated by: [id number] Y Date: 01/31/2025 11:17
== END 2025-01-31 10:14 | disposition home or self-care (01) ==
PROVIDERS: PCP Family Medicine; Visit Provider Family Medicine
DX: Z87.891 Personal history of nicotine dependence (principal)
CPT/HCPCS: 71271